=== PATIENT | female | born 2000 | race Caucasian/White ===

== ENCOUNTER 2024-12-10 12:39 | Observation (INO) | payer BC, SELFPAY ==
--- OUTSIDE RECORDS SUMMARY | 2024-12-10 12:57 | XMS_ITS | Patient Health Summary ---
Author Organization [facility] Address [address] [place] [address] Care Team Providers Care Component Design Engineer Name Role Phone Unavailable Primary Care Provider Unavailabl e Note from [facility],non-owned Affiliates and Associated Physician Practices is amultiple site organization consisting of ambulatory clinics and hospital sitesin [place], [place], [place] and [place]. This disclosure is being madepursuant to the Care Everywhere program and may not contain all information available regarding this patient. Last updated 18.[facility] Allergies No known active allergies Medications * Be aware that medications may not be up to date on this document. Alwaysverify current medications with the patient. * aspirin EC (Ecotrin) 81 MG tablet Take 1 (one) tablet by mouth once daily * Vit-Fe Fumarate-FA ( vitamin) 28-0.8 MG tablet Take 1 (one) tablet by mouth once daily Active Problems No known active problems Social History Tobacco Use Types Packs/Day Years Used Date Smoking Tobacco: Never Smokeless Tobacco: Never Alcohol Use Standard Drinks/Week Comments Never 0 (1 standard drink = 0.6 oz pur e alcohol) PHQ-2 Answer Date Recorded Patient Health Questionnaire-2 Score 1 11/11/2024 Education Answer Date Recorded What is the highest level of school you have completed or the highest degree you have received? Associate degree: occupational, technical, or vocational program 11/13/2024 Estimated Date of Delivery Comme nts Yes 03/17/2025 Based on Patient Reported Sex and Gender Information Value Date Recorded Sex Assigned at Female 11/11/2024 9:17 AM SUPERVISOR DENTURE DEPARTMENT Gender Identity Female 11/11/2024 9:17 AM SUPERVISOR DENTURE DEPARTMENT Sexual Orientation Not on file Last Filed Vital Signs Vital Sign Reading Time Taken Comments Blood Pressure 104/70 11/13/2024 8:57 AM SUPERVISOR DENTURE DEPARTMENT Pulse 79 12/21/2017 10:01 AM SUPERVISOR DENTURE DEPARTMENT Temperature 37.1 C (98.8 F) 12/21/2017 10:01 AM SUPERVISOR DENTURE DEPARTMENT Respiratory Rate 16 12/21/2017 10:01 AM SUPERVISOR DENTURE DEPARTMENT Oxygen Saturation 99% 12/21/2017 10:01 AM SUPERVISOR DENTURE DEPARTMENT Inhaled Oxygen Concentration - - Weight 88 kg (194 lb) 11/13/2024 8:57 AM SUPERVISOR DENTURE DEPARTMENT Height 163.8 cm (5' 4.5 ) 11/13/2024 8:57 AM SUPERVISOR DENTURE DEPARTMENT Body Mass Index 32.79 11/13/2024 8:57 AM SUPERVISOR DENTURE DEPARTMENT Procedures * SONOGRAM - TRANSVAGINAL(Performed 11/20/2024) Performed for Encounter for screening for cervical length ([facility]), Encounter for follow-up ultrasound of anatomy ([facility]) * SONOGRAM - COMPLETE(Performed 11/13/2024) Performed for Screening, , for anatomic survey ([facility]) * URINALYSIS - POINT OF CARE (AMB) [facility](Performed 11/13/2024) Performed for Initial obstetric visit in second trimester ([facility]) * URINALYSIS AUTO - POINT OF CARE (AMB) [facility](Performed 12/21/2017) Performed for Acute cystitis with hematuria Results * SONOGRAM - TRANSVAGINAL (11/20/2024 10:57 AM SUPERVISOR DENTURE DEPARTMENT) Linked Results Indication ======== Short cervix - on vaginal progesterone Incomplete Anatomic Survey History ====== OB History 1. Para 0 Lab Tests Test Date Result NIPT Low risk, Male (per patient) Maternal Assessment Physical Exam Height 163 cm, 5 ft 4 in. Weight 89 kg, 197 lb. Initial weight 82 kg, 180 lb. BMI 33.82 kg/m . Initial BMI 30.90 kg/m . Weight gain 8 kg, 17 lb Method ====== Transabdominal and transvaginal ultrasound. View: Sufficient ========= Vera . Number of fetuses: 1 Dating ====== Date Details Gest. age ELIZA Stated ELIZA 23 w + 2 d 03/17/2025 Assigned dating based on stated ELIZA, selected on 11/13/2024 23 w + 2 d 03/17/2025 General Evaluation Cardiac activity present. FHR 153 bpm. Presentation: breech Placenta: Placental site: anterior Amniotic fluid: Amount of AF: normal. MVP 4.9 cm Anatomy The following structures appear normal: Abdomen Stomach. Kidneys. Bladder. The following structures could not be adequately visualized: Spine Cervical spine. Thoracic spine. Lumbar spine. Sacral spine. Extremities / Skeleton Feet. sex: male. Maternal Structures Cervix reassuring Approach - Transvaginal: Cervical length 2.40 cm ranges from 2.38-2.92 cm Impression ========= Single , live, intrauterine at 23w2d Amniotic fluid volume: normal Transvaginal cervical length appears reassuring Incomplete anatomic survey No malformations seen within the limitations of ultrasound Follow-up ======== Ultrasound in 3 weeks for growth and anatomy Continue use of vaginal progesterone Coding ====== Procedures 16637: US Uterus Limited 92557: US Preg Uterus Transvaginal [employer] PACS Anatomical Region Laterality Modality Other 11/20/2024 10:5 7 AM SUPERVISOR DENTURE DEPARTMENT R Mane Lozano MD [facility] ORDERABLES * SONOGRAM - COMPLETE (11/13/2024 9:47 AM SUPERVISOR DENTURE DEPARTMENT) Linked Results Indication ======== Short cervix on outside ultrasound - 2.3 cm on 11/07 and 3.4 cm with dynamic changes on 11/12 Anatomic Survey History ====== OB History 1. Para 0 Lab Tests Test Date Result NIPT Low risk, Male (per patient) Maternal Assessment Physical Exam Height 163 cm, 5 ft 4 in. Weight 87 kg, 192 lb. Initial weight 82 kg, 180 lb. BMI 32.96 kg/m . Initial BMI 30.90 kg/m . Weight gain 5 kg, 12 lb Method ====== Transabdominal and transvaginal ultrasound examination. View: Suboptimal view: limited by position ========= Vera . Number of fetuses: 1 Dating ====== Date Details Gest. age ELIZA Stated ELIZA 22 w + 2 d 03/17/2025 U/S 11/13/2024 based upon AC, BPD, Femur, HC 23 w + 1 d 03/11/2025 Assigned dating based on stated ELIZA, selected on 11/13/2024 22 w + 2 d 03/17/2025 General Evaluation Cardiac activity present. FHR 140 bpm. Presentation: variable Placenta: Placental site: anterior Umbilical cord: Cord vessels: 3 vessel cord. Insertion site: normal insertion Amniotic fluid: Amount of AF: normal. MVP 4.2 cm Biometry BPD 56.9 mm 23w 3d 85% Hadlock HC 209.6 mm 23w 0d 69% Hadlock Cerebellum tr 24.1 mm 69% [place] Nuchal fold 4.1 mm AC 191.4 mm 23w 6d 87% Hadlock Femur 38.5 mm 22w 2d 41% Hadlock Humerus 38.3 mm 23w 4d 84% Cade HC / AC 1.10 -/- Hadlock Weight Calculation: EFW 572 g 85% Hadlock EFW (lb,oz) 1 lb 4 oz EFW by Hadlock ([id number]) Head / Face / Neck Biometry: CM 4.6 mm 20% Nicolaides Growth Overview Exam date GA BPD (mm) HC (mm) AC (mm) FL (mm) HL (mm) EFW (g) 11/13/2024 22w 2d 56.9 85% 209.6 69% 191.4 87% 38.5 41% 38.3 84% 572 85% Anatomy The following structures appear normal: Head / Neck Cranium. Lateral ventricles. Choroid plexus. Midline falx. Cavum septi pellucidi. Cerebellum. Cisterna magna. Thalami. Nuchal fold. Face Lips. Profile. Nose. Nasal bone. Orbits. Heart / Thorax 4-chamber view. RVOT view. LVOT view. 3-vessel view. 5-iowplh-bhekilz view. Situs. Aortic arch view. Bicaval view. Ductal arch view. Great vessels. Right lung. Left lung. Diaphragm. Abdomen Cord insertion. Stomach. Kidneys. Bladder. Bowel. Genitals. Extremities / Skeleton Arms. Hands. Legs. The following structures could not be adequately visualized: Spine Cervical spine. Thoracic spine. Lumbar spine. Sacral spine. Extremities / Skeleton Feet. sex: male. Maternal Structures Cervix Abnormal Appearance: shortened Approach - Transvaginal: Cervical length 2.42 cm Funneling absent Right Ovary Not visualized Left Ovary Not visualized Impression ========= Single, live, intrauterine at 22w 2d Appropriate size for reported ELIZA Amniotic fluid volume: normal No major malformations were seen within the limitations of ultrasound Incomplete anatomic survey due to position Short transvaginal cervical length at 2.4 cm; no funneling noted Follow-up ======== Follow up ultrasound in 1 week for cervical length assessment Follow up anatomy and growth in 4 weeks Coding ====== Procedures [id number]: US Preg Uterus Detailed 08143: US Preg Uterus Transvaginal [facility] RF nano PACS Anatomical Region Laterality Modality Other 11/13/2024 9:47 AM SUPERVISOR DENTURE DEPARTMENT R Mane Lozano MD [facility] ORDERABLES * URINALYSIS - POINT OF CARE (AMB) [facility] (11/13/2024 9:05 AM SUPERVISOR DENTURE DEPARTMENT) Specific [place] UA 1.[address] [facility] [address] pH UA 7 [facility] [address] WBC UA 1+ [facility] [address] Nitrite UA n [facility] [address] Protein UA n [facility] [address] Glucose UA n [facility] [address] Ketones UA POCT n [facility] [address] Urobilinogen UA n [facility] [address] Bilirubin UA POCT n [facility] [address] Blood Urine POCT n [facility] [address] Urine URINE / Unknown 11/13/2024 9 :05 AM SUPERVISOR DENTURE DEPARTMENT Sukhdev Rasmussen MD LAB - POINT OF CARE ORDERABLES [facility] [address] [place] [address], [facility] [phone] * (ABNORMAL) URINALYSIS AUTO - POINT OF CARE (AMB) [facility] (12/21/2017) Clarity UA POCT clear Color UA POCT yellow Leukocyte UA Trace (15) Negative Nitrite UA POCT neg Negative Urobilinogen UA 0.2 0.1 - 1.0 Protein UA POCT Trace Negative pH UA 6.5 5.0 - 8.0 pH units Blood UA + Negative Specific [place] UA POCT 1.005 1.002 - 1.030 Ketone UA neg Negative Bilirubin UA POCT neg Negative Glucose UA neg Negative Expiration Date 05/31/19 Lot # [id number] QC Verified Yes Yes Urine URINE / Unknown 12/21/2017 Lucia Gordon [employer] HAZMAT DRIVER-SEVERITY OF ILLNESS COORDINATOR LAB - POINT OF CA RE ORDERABLES
--- OUTSIDE RECORDS SUMMARY | 2024-12-10 12:58 | XMS_ITS | Referral Summary ---
Author Organization [facility] Address [address] [place] [address] Care Team Providers Care Machine Hose Cutter Name Role Phone Unavailable Primary Care Provider Unavailabl e Source Comments [facility],non-owned Affiliates and Associated Physician Practices is amultiple site organization consisting of ambulatory clinics and hospital sitesin [place], [place], [place] and [place]. This disclosure is being madepursuant to the Care Everywhere program and may not contain all information available regarding this patient. Last updated 18.[facility] Encounters Date Type Department Care Team Description 11/20/2024 Travel 11/20/2024 10:24 AM ASSEMBLER FINAL - 11/20/2024 11:59 PM ASSEMBLER FINAL Hospital Encounter [facility] MATERNAL/ EVALUATION UNIT [address] [place] [address] Say Hatch DO Gross, Gilad A, MD Discharge Disposition: Home or Self Care 11/13/2024 Telephone [facility] MATERNAL/ EVALUATION UNIT [address] [place] [address] Michaela Arreaga Future Appointment 11/13/2024 Travel 11/13/2024 9:00 AM ASSEMBLER FINAL visit [facility] - PROJECTION TECHNICIAN [address] [place] [id number] Sukhdev Rasmussen MD [place]: 22w2d 11/13/2024 8:15 AM ASSEMBLER FINAL - 11/13/2024 11:59 PM ASSEMBLER FINAL Hospital Encounter [facility] MATERNAL/ EVALUATION UNIT [address] [place] [address] Say Hatch DO PROJECTION TECHNICIAN Discharge Disposition: Home or Self Care 11/07/2024 Telephone [facility] MATERNAL/ EVALUATION UNIT [address] [place] [address] Michaela Rudolph, cardiac cath tech from Last 3 Months Allergies No known active allergies Medications * Be aware that medications may not be up to date on this document. Alwaysverify current medications with the patient. Medication Sig Dispensed Refills Start Date End Date Status aspirin EC (Ecotrin) 81 MG tablet Take 1 (one) tablet by mouth once daily Active Vit-Fe Fumarate-FA ( vitamin) 28-0.8 MG tablet Take 1 (one) tablet by mouth once daily Active Active Problems Estimated Date of Delivery Comme nts Yes 03/17/2025 Based on Patient Reported No known active problems Social History Tobacco [...] Sex Assigned at Female 11/11/2024 9:17 AM ASSEMBLER FINAL Gender Identity Female 11/11/2024 9:17 AM ASSEMBLER FINAL Sexual Orientation Not on file Last Filed Vital Signs Vital Sign Reading Time Taken Comments Blood Pressure 104/70 11/13/2024 8:57 AM ASSEMBLER FINAL Pulse 79 12/21/2017 10:01 AM ASSEMBLER FINAL Temperature 37.1 C (98.8 F) 12/21/2017 10:01 AM ASSEMBLER FINAL Respiratory Rate 16 12/21/2017 10:01 AM ASSEMBLER FINAL Oxygen Saturation 99% 12/21/2017 10:01 AM ASSEMBLER FINAL Inhaled Oxygen Concentration - - Weight 88 kg (194 lb) 11/13/2024 8:57 AM ASSEMBLER FINAL Height 163.8 cm (5' 4.5 ) 11/13/2024 8:57 AM ASSEMBLER FINAL Body Mass Index 32.79 11/13/2024 8:57 AM ASSEMBLER FINAL Plan of Treatment Not on file Procedures Procedure Name Priority Date/Time Associated Diagnosis Comments SONOGRAM - TRANSVAGINAL Routine 11/20/2024 10:57 AM ASSEMBLER FINAL Encounter for screening for cervical length (HCC) Encounter for follow-up ultrasound of anatomy ([facility]) SONOGRAM - COMPLETE Routine 11/13/2024 9 :47 AM ASSEMBLER FINAL Screening, , for anatomic survey (HCC) URINALYSIS - POINT OF CARE (AMB) [facility] Routine 11/13/2024 9:05 AM ASSEMBLER FINAL Initial obstetric visit in second trimester ([facility]) from Last 3 Months Results * SONOGRAM - TRANSVAGINAL (11/20/2024 10:57 AM ASSEMBLER FINAL) Linked Results Indication ======== Short cervix - [...] use of vaginal progesterone Coding ====== Procedures [id number]: US Uterus Limited 02097: US Preg Uterus Transvaginal [employer] PACS Anatomical Region Laterality Modality Other 11/20/2024 10:5 7 AM ASSEMBLER FINAL R Mane Lozano MD [facility] ORDERABLES * SONOGRAM - COMPLETE (11/13/2024 9:47 AM ASSEMBLER FINAL) Linked Results Indication ======== Short cervix on [...] 1 lb 4 oz EFW by Hadlock ([id number]) Head / Face / Neck Biometry: CM [...] view. RVOT view. LVOT view. 3-vessel view. 2-lvnfqs-rcqhtrj view. Situs. Aortic arch view. Bicaval view. [...] growth in 4 weeks Coding ====== Procedures 35772: US Preg Uterus Detailed 05812: US Preg Uterus Transvaginal [facility] ONOFFMIX (?) PACS Anatomical Region Laterality Modality Other 11/13/2024 9:47 AM ASSEMBLER FINAL R Mane Lozano MD [facility] ORDERABLES * URINALYSIS - POINT OF CARE (AMB) U (11/13/2024 9:05 AM ASSEMBLER FINAL) Specific [place] UA 1.[address] [facility] [address] pH UA 7 [facility] [address] WBC UA 1+ [facility] [address] Nitrite UA n [facility] [address] Protein UA n [facility] [address] Glucose UA n [facility] [address] Ketones UA POCT n [facility] [address] Urobilinogen UA n [facility] [address] Bilirubin UA POCT n [facility] [address] Blood Urine POCT n [facility] [address] Urine URINE / Unknown 11/13/2024 9 :05 AM ASSEMBLER FINAL Sukhdev Rasmussen MD LAB - POINT OF CARE ORDERABLES [facility] [address] [place] [address], [facility] [phone] from Last 3 Months Danna Spivey Personal/Family Self 2000
--- OUTSIDE RECORDS SUMMARY | 2024-12-10 12:58 | XMS_ITS | Clinical Summary ---
Author Organization [facility] Address [address] [place] [address] Care Team Providers Care Lead Printer Name Role Phone Unavailable Primary Care Provider Unavailabl e Source Comments [facility],non-owned Affiliates and Associated Physician Practices is amultiple site organization consisting of ambulatory clinics and hospital sitesin [place], [place], [place] and [place]. This disclosure is being madepursuant to the Care Everywhere program and may not contain all information available regarding this patient. Last updated 18.[facility] Allergies No known active allergies Medications * [...] on Patient Reported No known active problems Encounters Date Type Department Care Team Description 11/20/2024 10:24 AM MAID CLEANING COOKING - 11/20/2024 11:59 PM MAID CLEANING COOKING Hospital Encounter [facility] MATERNAL/ EVALUATION UNIT [address] [place], [place] [address] Say Hatch DO Gross, Gilad A, MD Discharge Disposition: Home or Self Care 11/20/2024 Travel 11/13/2024 9:00 AM MAID CLEANING COOKING visit [facility] - FACILITY MANAGER [address] [place] [address] Sukhdev Rasmussen MD [place]: 22w2d 11/13/2024 8:15 AM MAID CLEANING COOKING - 11/13/2024 11:59 PM MAID CLEANING COOKING Hospital Encounter [facility] MATERNAL/ EVALUATION UNIT [address] [place] [address] Say Hatch DO FACILITY MANAGER Discharge Disposition: Home or Self Care 11/13/2024 Telephone [facility] MATERNAL/ EVALUATION UNIT [address] [place] [address] Michaela Arreaga Future Appointment 11/13/2024 Travel 11/07/2024 Telephone [facility] MATERNAL/ EVALUATION UNIT [address] [place] [address] Michaela Rudolph RN Referral from Last 3 Months Family History Medical History Relation Name Comments Leukemia Mother Other Mother unsure, ?ovaria n cysts Cancer - Breast Neg Hx Cancer - Colon Neg Hx Cancer - Uterine Neg Hx Other - Defects Neg Hx Sudd. <30 Neg Hx Relation Name Status Comments Father Alive Mother Social History Tobacco Use Types Packs/Day Years [...] Sex Assigned at Female 11/11/2024 9:17 AM MAID CLEANING COOKING Gender Identity Female 11/11/2024 9:17 AM MAID CLEANING COOKING Sexual Orientation Not on file Last Filed Vital Signs Vital Sign Reading Time Taken Comments Blood Pressure 104/70 11/13/2024 8:57 AM MAID CLEANING COOKING Pulse 79 12/21/2017 10:01 AM MAID CLEANING COOKING Temperature 37.1 C (98.8 F) 12/21/2017 10:01 AM MAID CLEANING COOKING Respiratory Rate 16 12/21/2017 10:01 AM MAID CLEANING COOKING Oxygen Saturation 99% 12/21/2017 10:01 AM MAID CLEANING COOKING Inhaled Oxygen Concentration - - Weight 88 kg (194 lb) 11/13/2024 8:57 AM MAID CLEANING COOKING Height 163.8 cm (5' 4.5 ) 11/13/2024 8:57 AM MAID CLEANING COOKING Body Mass Index 32.79 11/13/2024 8:57 AM MAID CLEANING COOKING Plan of Treatment Health Maintenance Due Date Last Done Comments PAP SMEAR 2000 HIV SCREENING 2013 HPV VACCINE (1 - 3-dose series) 2013 HEPATITIS C SCREENING 12/30/2015 DTAP/TDAP/TD VACCINES (1 - Tdap) 2017 HEPATITIS B VACCINE (1 of 3 - 19+ 3-dose series) 2017 COVID-19 VACCINE (2023-2 5 season) 2024 11/16/2021, 10/26/2021 INFLUENZA VACCINE (#1) 2024 OB-ONE HOUR GLUCOSE 12/09/2024 OB-TDAP CURRENT 12/16/2024 OB-RHOGAM INJECTION 12/23/2024 ZOSTER VACCINE (1 of 2) 01/04/2048 DEPRESSION SCREENING Completed 11/13/2024 HIB VACCINE Aged Out No longer eligi ble based on patient's age to complete this topic MENINGOCOCCAL (Group B) VACCINE Aged Out No longer eligible b ased on patient's age to complete this topic MENINGOCOCCAL VACCINE Aged Out No toby sri eligible based on patient's age to complete this topic PNEUMOCOCCAL VACCINE Aged Out No long er eligible based on patient's age to complete this topic Respiratory Syncytial Virus (RSV) Vaccine Pt: or over 60 yrs (No Doses Required) Completed Procedures Procedure Name Priority Date/Time Associated Diagnosis Comments SONOGRAM - TRANSVAGINAL Routine 11/20/2024 10:57 AM MAID CLEANING COOKING Encounter for screening for cervical length (HCC) Encounter for follow-up ultrasound of anatomy (HCC) SONOGRAM - COMPLETE Routine 11/13/2024 9 :47 AM MAID CLEANING COOKING Screening, , for anatomic survey (HCC) URINALYSIS - POINT OF CARE (AMB) [facility] Routine 11/13/2024 9:05 AM MAID CLEANING COOKING Initial obstetric visit in second trimester (HCC) from Last 3 Months Results * SONOGRAM - TRANSVAGINAL (11/20/2024 10:57 AM MAID CLEANING COOKING) Linked Results Indication ======== Short cervix - [...] use of vaginal progesterone Coding ====== Procedures [id number]: US Uterus Limited 41270: US Preg Uterus Transvaginal [facility] PACS Anatomical Region Laterality Modality Other 11/20/2024 10:5 7 AM MAID CLEANING COOKING R Mane Lozano MD [facility] ORDERABLES * SONOGRAM - COMPLETE (11/13/2024 9:47 AM MAID CLEANING COOKING) Linked Results Indication ======== Short cervix on [...] 1 lb 4 oz EFW by Hadlock ([id number]) Head / Face / Neck Biometry: CM [...] view. RVOT view. LVOT view. 3-vessel view. 0-nwqdzj-nwbkifx view. Situs. Aortic arch view. Bicaval view. [...] growth in 4 weeks Coding ====== Procedures [id number]: US Preg Uterus Detailed 83306: US Preg Uterus Transvaginal . [facility] PACS Anatomical Region Laterality Modality Other 11/13/2024 9:47 AM MAID CLEANING COOKING R Mane Lozano MD [facility] ORDERABLES * URINALYSIS - POINT OF CARE (AMB) [facility] (11/13/2024 9:05 AM MAID CLEANING COOKING) Specific [place] UA 1.015 [facility] [address] pH [...] URINE / Unknown 11/13/2024 9 :05 AM MAID CLEANING COOKING Sukhdev Rasmussen MD LAB - POINT OF CARE ORDERABLES [facility] [address] [place] [address], [facility] [phone] from Last 3 Months Danna Spivey Personal/Family Self 2000
[2024-12-10 13:16] VITALS: BP 120/67; PULSE 89
[2024-12-10 13:31] VITALS: BP 125/61; PULSE 90
[2024-12-10 13:37] VITALS: BMI 34.2
--- NOTE | 2024-12-10 13:37 | OBADM ---
This patient, Danna Spivey, admitted to the OB room OB Post 115 for observation. Patient/family oriented to hospital policies and general routines including ID bracelet, bed and alarms, visiting hours, pain management, procedures, bathroom and other care routines, personal items, smoking policy, room service/diet, and visiting hours. Patient/Family are encouraged to report perceived risks to care and to ask questions if they do not understand what they are told or what they should do. Pt. presents with reports of having slipped on the ice and fell forward onto her hands and knees. She states that she did not hit her abdomen, denies vaginal bleeding and LOF. She reports having an anterior placenta and states that she does not feel baby move very much r/t that. EFM X2 appllied and will monitor.
[2024-12-10 13:46] VITALS: BP 119/68; PULSE 85
[2024-12-10 14:01] VITALS: BP 118/75; PULSE 86
--- NOTE | 2024-12-11 07:55 | PM.OBTRLD ---
OB - Triage/Final Diagnosis Visit Information Reason for evaluation: other (s/p falling) Comments/Additional reasons for admission: I have assessed the risk for this patient, Danna Spivey, and determined that she would benefit from observation care. Evaluation Vital signs: Vital Signs - 24 hr 12/10/24 13:16 12/10/24 13:31 12/10/24 13:46 Pulse Rate 89 90 85 Blood Pressure 120/67 125/61 119/68 12/10/24 14:01 Pulse Rate 86 Blood Pressure 118/75
== END 2024-12-10 15:55 | disposition home or self-care (01) ==
LOC: ANHOBPP 12-11 07:09
PROVIDERS: Admitting Provider Obstetrics & Gynecology; PCP Nurse Practitioner Family; Visit Provider Obstetrics & Gynecology Gynecology
DX: O26.892 Other specified pregnancy related conditions, second trimester (principal); W19.XXXA Unspecified fall, initial encounter; Z3A.26 26 weeks gestation of pregnancy
CPT/HCPCS: G0378; G0379

== ENCOUNTER 2025-01-08 17:37 | Observation (INO) | payer BC, SELFPAY ==
--- OUTSIDE RECORDS SUMMARY | 2025-01-08 17:45 | XMS_ITS | Clinical Summary ---
Author Organization [facility] [employer] Address [address] [address] Care Team Providers Care Business Applications Analyst Name Role Phone Unavailable Primary Care Provider Unavailabl e Source Comments [facility] [employer],non-owned Affiliates and Associated Physician Practices is amultiple site organization consisting of ambulatory clinics and hospital sitesin [place], [place], [place] and [place]. This disclosure is being madepursuant to the Care Everywhere program and may not contain all information available regarding this patient. Last updated 18.[employer] Allergies No known active allergies Medications * [...] Department Care Team Description 11/20/2024 10:24 AM CORPORATE REAL ESTATE MANAGER - 11/20/2024 11:59 PM CORPORATE REAL ESTATE MANAGER Hospital Encounter [facility] MATERNAL/ EVALUATION UNIT 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 [place] [address] Say Hatch DO CLEANING AND MAINTENANCE WORKER Discharge Disposition: Home or Self Care 11/13/2024 Telephone [facility]/ EVALUATION UNIT [address] [place] [address] Michaela Arreaga Future Appointment 11/13/2024 Travel 11/07/2024 Telephone [facility] MATERNAL/ EVALUATION UNIT [address] [place] [address] Michaela Rudolph RN Referral from Last 3 [...] Sex Assigned at Female 11/11/2024 9:17 AM CORPORATE REAL ESTATE MANAGER Gender Identity Female 11/11/2024 9:17 AM CORPORATE REAL ESTATE MANAGER Sexual Orientation Not on file Last Filed Vital Signs Vital Sign Reading Time Taken Comments Blood Pressure 104/70 11/13/2024 8:57 AM CORPORATE REAL ESTATE MANAGER Pulse 79 12/21/2017 10:01 AM CORPORATE REAL ESTATE MANAGER Temperature 37.1 C (98.8 F) 12/21/2017 10:01 AM CORPORATE REAL ESTATE MANAGER Respiratory Rate 16 12/21/2017 10:01 AM CORPORATE REAL ESTATE MANAGER Oxygen Saturation 99% 12/21/2017 10:01 AM CORPORATE REAL ESTATE MANAGER Inhaled Oxygen Concentration - - Weight 88 kg (194 lb) 11/13/2024 8:57 AM CORPORATE REAL ESTATE MANAGER Height 163.8 cm (5' 4.5 ) 11/13/2024 8:57 AM CORPORATE REAL ESTATE MANAGER Body Mass Index 32.79 11/13/2024 8:57 AM CORPORATE REAL ESTATE MANAGER Plan of Treatment Health Maintenance Due Date Last Done Comments PAP SMEAR 1998 HEPATITIS C SCREENING 12/30/2015 DTAP/TDAP/TD VACCINES (1 - Tdap) 2017 HEPATITIS B VACCINE (1 of 3 - 19+ 3-dose series) 2017 COVID-19 VACCINE (2023-2 5 season) 2024 11/16/2021, 10/26/2021 INFLUENZA VACCINE (#1) 2024 OB-ONE HOUR GLUCOSE 12/09/2024 OB-TDAP CURRENT 12/16/2024 OB-RHOGAM INJECTION 12/23/2024 ZOSTER VACCINE (1 of 2) 01/04/2048 HIV SCREENING Completed 08/22/2024 DEPRESSION SCREENING Completed 11/13/2024 HIB VACCINE Aged Out No longer eligi ble based on patient's age to complete this topic HPV VACCINE Aged Out No longer eligi ble based on patient's age to complete this topic MENINGOCOCCAL (Group B) VACCINE SHARED DECISION-MAKING Aged Out No longer eligible based on patient's age to complete this topic MENINGOCOCCAL GROUPS A/C/Y/W VACCINE Aged Out No longer eligible b ased on patient's age to complete this topic PNEUMOCOCCAL VACCINE Aged Out No long er eligible based on patient's age to complete this topic Respiratory Syncytial Virus (RSV) Vaccine Pt: or over 60 yrs (No Doses Required) Completed Procedures Procedure Name Priority Date/Time Associated Diagnosis Comments SONOGRAM - TRANSVAGINAL Routine 11/20/2024 10:57 AM CORPORATE REAL ESTATE MANAGER Encounter for screening for cervical length Encounter for follow-up ultrasound of anatomy SONOGRAM - COMPLETE Routine 11/13/2024 9 :47 AM CORPORATE REAL ESTATE MANAGER Screening, , for anatomic survey URINALYSIS - POINT OF CARE (AMB) [facility] Routine 11/13/2024 9:05 AM CORPORATE REAL ESTATE MANAGER Initial obstetric visit in second trimester from Last 3 Months Results * SONOGRAM - TRANSVAGINAL (11/20/2024 10:57 AM CORPORATE REAL ESTATE MANAGER) Linked Results Indication ======== Short cervix - [...] use of vaginal progesterone Coding ====== Procedures 36323: US Uterus Limited 52065: US Preg Uterus Transvaginal [facility] [employer] PACS Anatomical Region Laterality Modality Other 11/20/2024 10:5 7 AM CORPORATE REAL ESTATE MANAGER R Mane Lozano MD [facility] ORDERABLES * SONOGRAM - COMPLETE (11/13/2024 9:47 AM CORPORATE REAL ESTATE MANAGER) Linked Results Indication ======== Short cervix on [...] 1 lb 4 oz EFW by Hadlock ([id number]) Head / Face / Neck Biometry: CM [...] view. RVOT view. LVOT view. 3-vessel view. 1-sahpcd-dsvbsrq view. Situs. Aortic arch view. Bicaval view. [...] growth in 4 weeks Coding ====== Procedures 59707: US Preg Uterus Detailed 88537: US Preg Uterus Transvaginal [facility] PACS Anatomical Region Laterality Modality Other 11/13/2024 9:47 AM CORPORATE REAL ESTATE MANAGER R Mane Lozano MD [facility] ORDERABLES * URINALYSIS - POINT OF CARE (AMB) [facility] (11/13/2024 9:05 AM CORPORATE REAL ESTATE MANAGER) Specific [place] UA 1.[address] [facility] [address] pH UA [address] [facility] [address] WBC UA 1+ [facility] 10 31 [...] URINE / Unknown 11/13/2024 9 :05 AM CORPORATE REAL ESTATE MANAGER Sukhdev Rasmussen MD LAB - POINT OF CARE ORDERABLES [facility] [address] [place] [address], [facility] [phone] from Last 3 Months Danna Spivey Personal/Family Self 2000
--- OUTSIDE RECORDS SUMMARY | 2025-01-08 17:45 | XMS_ITS | Data Portability ---
Author Organization [facility] [employer] , [facility] Address [address] [place] [address] Assessment No assessment recorded. Plan of Treatment Reminders Order Date Submit Date Provider Last Modified By Organization Details Last Modified Time Details Appointments None recorded. Lab test, urine 2023 024 bnotzke [facility], [address] [place], [address], 4 12:10:14 test, urine 2023 024 [facility], [address] [facility], [place], [address], 4 15:42:14 mycoplasma + ureaplasma DNA, unspecified specimen 2023 024 Ullink [facility], [address] [facility], [facility] [address], [place], [address], 4 18:31:39 testosteron e, free, serum 2023 024 Ullink [facility], [address], [place], [address], 4 19:09:01 lh + FSH, serum 2023 024 [facility], [address] [place], [address], 4 11:44:56 estradiol, serum 2023 Ullink [facility], [address], [place], [address], 19:09:00 hemoglobin A1c, QN, blood 2023 MIKE [email or web address] [facility], [address] [place], [address], 10:58:20 prolactin, serum 2023 MIKE [email or web address] [facility], [address] [place], [address], 11:44:58 TSH + free T4, serum 2023 [email or web address] [facility], [address] [place], [address], 11:50:12 Referral None recorded. Procedures None recorded. Surgeries None recorded. Imaging US, transvagina l 2023 [facility] Not available 11:44:22 Medication Orders None recorded. Patient TargetsNo targets recorded. Patient Instructions Encounter Date Encounter Id Patient Instructions Last Modified By Organization Details Last Modified Time 06/26/2024 [id number] infertility education [email or web address] Not available 06/26/2024 13:14:08 08/06/2024 [id number] [facility] OB Booklet bnotzke Not available 08/06/2024 12:10:12 Reason for Referral None Reported. Results Created Date Observation Date Name Description Value Unit Range Abnormal Flag Note LastModifiedBy Organization Detail LastModifiedTime 07/01/20 24 07/01/2024 ESTRA DIOL estradiol 162 pg/mL normal Refer ence Range Folli cular Phase : 19-14 4 Mid-C ycle: 64-35 7 Lutea l Phase : 56-21 4 Postm enopa usal: < or = 31 Refer ence range estab lishe d on post- puber yung patie nt popul ation . No pre-p ubert al refer ence range estab lishe d using this assay . For any patie nts for whom low Estra diol level s are antic ipate d (e.g. males , pre-p ubert al child beto and hypog onada l/pos t-men opaus al femal es), the [facility] t[facility] Estra diol, Ultra sensi tive, LCMSM S assay is recom ani d (orde r code 58844 ). Pleshu e note: patie nts being treat ed with the drug fulve stran t (Fasl odex( R)) have demon strat ed signi fican t inter feren ce in immun oassa y metho ds for estra diol measu remen t. The cross react ivity could lead to false ly eleva mindi estra diol test resul ts leadi ng to an inapp ropri ate clini harsh asses sment of estro gen statu s. [facility] order code [id number] -Estr adiol , Ultra sensi tive LC/MS /MS demon strat es negli gible cross react ivity with fulve stran t. Not Available [facility] [address] [place], [address], 07/01/2024 19:09:00 07/01/2007/01/2024 TESTO STERO NE, FREE testosterone , free 3.6 pg/mL 0.2-5. 0 MDF med fusio n [address] [facility] [address] [facility] [address] [phone] Brii Mae MD, PhD NO COLLE CTION DATE RECEI FRANCOISE. WE HAVE USED THE DATE THE SPECI MEN WAS RECEI FRANCOISE BY THIS LABOR ATORY THE COLLE CTION DATE. IF THIS IS INCOR RECT, PLEAS E CONTA CT CLIEN T SERVI JANY. PHONE NUMBE R: [phone] Not Available Alekto [facility] [address] [place], [address], 07/01/2024 19:09:00 06/26/20 24 07/04/2024 MYCOP LASMA /UREA PLASM A PANEL sureswab(R), mycoplasma hominis, real-time PCR NOT DETECT ED normal REFEE RENCE RANGE : NOT DETEC MINDI Metho dolog y: Real- Time PCR This test was devel oped and its mahsa tical perfo rmanc e amor cteri stics have been deter mined by [employer] [facility]. It has not been clear ed or appro francoise by FDA. This assay has been valid ated pursu ant to the CLIA regul ation s and is used for clini harsh purpo ses. Not Available [facility] [address] [place], [address], 07/04/2024 18:31:39 06/26/20 24 07/04/2024 MYCOP LASMA /UREA PLASM A PANEL mycoplasma genitalium, rrna,tma NOT DETECT ED normal REFER ENCE RANGE : NOT DETEC MINDI Not Available [address] [place], [address], 07/04/2024 18:31:39 06/26/20 24 07/04/2024 MYCOP LASMA /UREA PLASM A PANEL U. parvum DNA NOT DETECT ED normal Not Available [facility] [address], [address], 07/04/2024 18:31:39 06/26/20 24 07/04/2024 MYCOP LASMA /UREA PLASM A PANEL U. urealyticum DNA NOT DETECT ED normal REFER ENCE RANGE : NOT DETEC MINDI Metho dolog y: Real- Time PCR This test was devel oped and its mahsa tical perfo rmanc e amor cteri stics have been deter mined by [employer] [facility]. It has not been clear ed or appro francoise by FDA. This assay has been valid ated pursu ant to the CLIA regul ation s and is used for clini harsh purpo ses. Not Available [facility] [place] [address] [place], [address], 07/04/2024 18:31:39 06/27/20 24 06/28/2024 HEMOG LOBIN A1C hemoglobin A1C 4.8 % <5.7 normal The refer ence range for HbA1c is indic ated in the table below . Sugge sted Diagn osis =6.5% Consi stent with diabe adonis 5.7 6.4% Consi stent with incre ased risk for diabe adonis (pred iabet ic) <5.7% Consi stent with the absen ce of diabe adonis Not Available [employer] [address] [place], [address], 06/28/2024 10:58:20 06/27/20 24 06/28/2024 FSH AND LH FSH 2.4 mIU/m L Refer ence Range s are for femal es aged 18 years - Adult Katalina l Menst ruati ng Femal e: Folli cular phase : 2.5-1 0.2 mIU/m L Mid-C ycle Peak: 3.4-3 3.4 mIU/m L Lutea l phase : 1.5-9 .1 mIU/m L Pregn ant: <0.3 mIU/m L Post- menop ausal : 23.0- 116.6 mIU/m L [place], [address], 06/28/2024 11:44:56 06/27/20 24 06/28/2024 FSH AND LH LH 3.75 U/L Refer ence Range s are for femal es aged 18 years - Adult Katalina l Menst ruati ng Femal e: Folli cular phase : 1.9-1 2.5 mIU/m L Mid-C ycle Peak: 8.7-7 6.3 mIU/m L Lutea l phase : 0.5-1 6.9 mIU/m L Pregn ant: <0.1- 1.5 mIU/m L Post- menop ausal : 15.9- 54.0 mIU/m L Contr acept kofi: 0.7-5 .6 mIU/m L Not Available [employer] [address] [place], [address], 06/28/2024 11:44:56 06/27/2006/28/2024 PROLA CTIN prolactin 10.0 NG/mL Refer ence Range s Femal e aged 18-Ad ult Nonpr egnan t: 2.8-2 9.2 ng/mL Pregn ant: 9.7-2 08.5 ng/mL Post- menop ausal : 1.8-2 0.3 ng/mL Pregn richard, lacta tion, and the admin istra tion of oral contr acept kofi can incre ase prola ctin bear ntrat ions. Not Available [address], [address], 06/28/2024 11:44:58 06/27/20 24 06/28/2024 TSH W/ T4, FREE TSH 2.21 mIU/L 0.55 - 4.78 normal Refer ence Range Femal e aged 18-Ad ult: 0.55- 4.78 Pregn richard Refer ence Range s First Trime ster 0.26- 2.66 Secon d Trime ster 0.55- 2.73 Third Trime ster 0.43- 2.91 Not Available [facility], [address], 06/28/2024 11:50:12 06/27/20 24 06/28/2024 TSH W/ T4, FREE T4, free 1.14 NG/dL 0.89 - 1.76 normal Not Available [address], [address], 06/28/2024 11:50:12 08/06/20 24 08/06/2024 pregn richard test, urine HCG positi ve Not Available [facility] [address] [place], [address], 08/06/2024 09:17:01 08/07/20 24 08/06/2024 US, trans vagin al No observ ation record ed. bnotzke [address], [place], [address], 08/07/2024 12:27:15 Result Notes None recorded. Procedures Surgical History Date Name Laterality Status Provider Name and Address Organization Details Recorded Time 05/27/2023 Date of Last Pap Smear completed [facility] [employer] 06/26/2024 12:13:38 Imaging Results Imaging Date Name Status LastModified by Organization Details LastModified Time 08/06/2024 US, transvaginal completed bnotzke Anush[address], [place], [address], 08/07/2024 12:27:15 Procedure Notes None recorded. Medical Equipment None Reported. Allergies No known drug allergies Medications Name Sig Start Date Stop Date Status Note LastModified by Organization Details LastModified Time medroxyproge sterone 10 mg tablet TAKE 1 TABLET BY MOUTH EVERY DAY FOR 10 DAYS 06/26 completed Not Available Not Available Not Available azithromycin 250 mg tablet 06/26 completed Not Available Not Available Not Available phentermine 37.5 mg tablet TAKE 1 TABLET BY MOUTH DAILY 06/26 completed Not Available Not Available Not Available spironolacto ne 25 mg tablet TAKE 1 TABLET BY MOUTH EVERY DAY 06/26 completed Not Available Not Available Not Available metformin ER 500 mg tablet,exten ded release 24 hr TAKE 2 TABLETS EVERY DAY BY ORAL ROUTE AT DINNER FOR 30 DAYS. active Not Available Not Available No t Available sertraline 50 mg tablet TAKE 1 TABLET BY MOUTH EVERY DAY WITH A MEAL 06/26 completed Not Available Not Available Not Available escitalopram 10 mg tablet TAKE 1 TABLET BY MOUTH DAILY 06/26 completed Not Available Not Available Not Available active Not Available Not Avai lable Not Available Vitals Date Recorded Body height Body mass index (BMI) Body weight Body temperature Systolic blood pressure Diastolic blood pressure Provider Name and Address Organization Details Last Updated DateTime 4 172.72 cm 27.5 kg/m2 33661.2 2 g 97 [degF] 110 mm[Hg] 60 mm[Hg] [facility] [employer] 12:22:55 Date Recorded Body height Body mass index (BMI) Body weight Body temperature Systolic blood pressure Diastolic blood pressure Provider Name and Address Organization Details Last Updated DateTime 4 172.72 cm 27.9 kg/m2 44241.2 8 g 97.6 [degF] 118 mm[Hg] 74 mm[Hg] Janki [facility] [employer] 11:33:11 Social History Question Answer Notes LastModified by Organizat ion Details LastModified Time Tobacco Smoking Status Never Smoker Alena Kyle null, [employer] 06/26/2024 12:14:15 What Is Your Level Of Alcohol Consumption? Occasional Information not available 06/26/2024 How Many Times Per Week Do You Consume Alcohol? Less Than 1 Time Per Week Information not available 06/26/2024 If You Are , What Was Your Level Of Alcohol Consumption Prior To ? None Information not available 06/26/2024 How Many Years Have You Consumed Alcohol? 10 Information not available 06/26/2024 Are You Blind Or Do You Have Difficulty Seeing? No Information not available 06/26/2024 Are You Currently Employed? Yes Information not available 06/26/2024 Are You Deaf Or Do You Have Serious Difficulty Hearing? No Information not available 06/26/2024 What Type Of Diet Are You Following? REGULAR Information not available 06/26/2024 How Many Children Do You Have? 0 Information not available 06/26/2024 What Is Your Relationship Status? Information not available 06/26/2024 Are You Sexually Active? Yes Information not available 06/26/2024 Do You Use Any Illicit Or Recreational Drugs? No Information not available 06/26/2024 Sex: Unknown Functional Status Question Answer Note LastModified by Organizat ion Details LastModified Time What is your exercise level? Occasional Information not available 06/26/2024 Mental Status None recorded. Family History Relationship Description Onset Age of this Age Resolved Age Notes LastModified by Organization Details LastModified Time Mother Myocardial infarction Not available 06/26 12:13:04 Mother Depressive disorder Not available 2023 12:13:04 Mother Malignant neoplastic disease Not available 2023 12:13:04 Mother Malignant tumor of cervix Not available 2023 12:13:04 Unspecified Relation Malignant tumor of breast Not available 2023 12:13:04 Maternal Grandmother Malignant neoplastic disease Not available 2023 12:13:04 Sister Depressive disorder Not available 2023 12:13:04 Maternal Grandfather Malignant tumor of lung Not available 2023 12:13:04 Medical History Condition Response Anxiety Disorder Y Polycystic Ovarian Syndrome Y Gynecological History Statement/Question Response Flow Moderate Date of LMP 06/07/2024 Frequency of Cycle (Q days) Not normal Date of Last Pap Smear 05/27/2023 Duration of Flow (days) 5 Current Control Method Age at Menarche 14 Obstetrics History GPAL:G 0 P 0 0 0 0 Past Encounters Encounter ID Performer Location Encounter Start Date Encounter Closed Date Diagnosis/Indication Diagnosis SNOMED-CT Code Diagnosis ICD10 Code Diagnosis Note [id number] Elvia cordova CNM [facility] [address] [place] [address] 06/26/2024 11:57:51 07/04/2024 16:17:12 Infertility study 71872355 Z31.41 Desires reviewed tracking cycle and comparing with Ovulation kits Reproducti ve care management 123931644 Z31.81 Polycystic ovary syndrome 562089881 E28.2 Recurrent bacterial infection 051974387 A49.9 [id number] KAREN BURKS [facility] [address] [place] [address] 08/06/2024 11:23:13 08/06/2024 13:28:59 test positive 451385894 Z32.01 Pt presents today for a confirmati on of visit. has not been previously confirmed at another healthcare facility. Pt voiced that she is happy about this . TVUS today showed:IUP with Cardiac Activity. ELIZA consistent with LMP. ELIZA: 03/17/25Ges tational Age: 8w 1dFHT: 89 First trimester teaching provided.- --Foods and activities to avoid---We ight gain recommenda tions based on BMI---Safe meds---Reji entation to practice-- -Delivery locations- --SAMUEL visit progressio n---Prenat al vitamins daily---To xoplasmosi s precaution s reviewed-- -[facility] Guide; What to expect on your maternity journey -- -S/S of SAB reviewed and when to seek care RTC for 1st OB, Labs, and Physical. --BMI: 27.9 Health Concerns Section Related Observation LastModified by Organization Detai ls LastModified Time None Recorded Concern Status LastModified by Organization Details LastModified Time None Recorded Advance Directives Directive None Recorded Payers Encounter Date Sequence Insurance Name Policy Number Policy Galeano Covered Member ID Galeano Member ID Guarantor Name 06/26/2024 1 [place] [id number] Mitul Spivey [id number] Danna Elizabeth Allyssa 08/06/2024 1 [place] [id number] Mitul J Allyssa [id number] Danna Elizabeth Allyssa Notes Date Note Type Note Provider Name and Address Organization Details Recorded Time 4 text/html InfertilityReported bypatient.Duration:tryin g to conceive for >1 year Context:menstrual cycles regular/monthly; menses every 28 days; documented ovulation: ; regular intercourse Danna is here for infertilitypatient state she has been trying for years to conceivepatient state she has been dx PCOS Elvia Romero, ABRAHAM [address] [facility], [place], [address], [employer] 07/03/2024 10:43:04 4 text/html Danna is here for positive test. She states she still is taking the metformin and has been taking . She does have nausea in the morning and night sometimes. She has no questions for me. ELENA BURKS- [address] [facility], [place], [address], [facility] [employer] 08/06/2024 12:10:34 OBGyn Episode No OBEpisode recorded.
--- OUTSIDE RECORDS SUMMARY | 2025-01-08 17:45 | XMS_ITS | Data Portability ---
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 Discussed plan. Not available 11/28/2024 11:34:18 12/12/2024 12/12/2024 Patient is ___weeks . Discussed plan. Not available 12/12/2024 15:06:31 12/26/2024 12/26/2024 Patient is ___weeks . Discussed plan. Not available 12/26/2024 12:21:39 Plan of Treatment Reminders Order Date Submit Date Provider Last Modified By Organization Details Last Modified Time Details Appointments OB ROUTINE 2024 11:45A Nancy LOZANO MD Not available Not available Not available Lab None recorded. Referral None recorded. Procedures None recorded. Surgeries None recorded. Imaging US, obstetric , follow-up 2024 025 [email or web address] [place], [address], [place], [address], 12/12/2024 15:28:48 US, obstetric , transvagi nal 2024 025 [email or web address] [place], [address], [place], [address], 12/12/2024 15:28:48 US, obstetric , transvagi nal 2024 025 [email or web address] [place], [address], [address], [place], [address], 11/12/2024 20:36:37 Medication Orders None recorded. Patient TargetsNo targets recorded. Patient InstructionsNo instructions recorded. Reason for Referral None Reported. Results Created Date Observation Date Name Description Value Unit Range Abnormal Flag Note LastModifiedBy Organization Detail LastModifiedTime 12/27/1912/26/2024 HEMAT OCRIT (HCT) HCT 37.0 % (based on docume nted legal sex) 34.0-4 5.0 Not Available [facility] (Lab) [address], [place], [address], 12/27/2024 12:42:42 12/27/19 25 12/26/2024 HEMOG LOBIN (HGB) HGB 12.1 g/dL (based on docume nted legal sex) 11.6-1 5.4 Not Available [facility] (Lab) [address], [place], [address], 12/27/2024 12:42:42 12/27/19 25 12/26/2024 GTT - GESTA MARY L SCREE N, ACOG OB glucose, 1 hour screen 107 mg/dL 70-135 Not Available [facility] (Lab) [address] [place], [address], 12/27/2024 12:42:42 12/27/19 25 12/26/2024 HIV 1/2 ANTIG EN/AN TIBOD Y, REFLE X CONFI RMATI ON HIV antigen/anti body Nonrea ctive nonrea ctive HIV-1 antig en and HIV-1 /HIV- 2 antib odies were not detec bushra. No labor atory evide nce of HIV infec tion. Not Available [facility] (Lab) [address], [place], [address], 12/27/2024 12:42:43 12/27/19 25 12/26/2024 RPR SCREE N, REFLE X TITER /CONF IRMAT ION RPR qualitative Nonrea ctive nonrea ctive Not Available [facility] (Lab) [address], [place], [address], 12/27/2024 12:42:43 10/31/19 25 10/31/2024 US, obste tric, 2nd or 3rd trime ster No observ ation record ed. [address], [place], [address], 10/31/2024 12:23:53 10/31/19 25 10/31/2024 US, obste tric, trans vagin al No observ ation record ed. [address], [place], [address], 10/31/2024 12:24:08 10/31/19 25 10/31/2024 US, obste tric, follo w-up No observ ation record ed. [email or web address] [address], [place], [address], 11/07/2024 10:08:47 11/07/19 25 11/07/2024 US, obste tric, trans vagin al No observ ation record ed. [facility] [address], [place], [address], 11/07/2024 18:31:11 11/07/19 25 11/07/2024 US, obste tric, limit ed No observ ation record ed. [facility] [address], [place], [address], 11/07/2024 18:31:21 11/07/19 25 11/07/2024 US, obste tric, trans vagin al No observ ation record ed. [email or web address] [address], [place], [address], 11/07/2024 21:56:16 11/12/19 25 11/12/2024 US, obste tric, trans vagin al No observ ation record ed. marcos [place] [address], [place], [address], 11/12/2024 17:42:46 11/12/19 25 11/12/2024 US, obste tric, follo w-up No observ ation record ed. [email or web address] [address], [place], [address], 11/13/2024 09:07:22 11/13/19 25 11/13/2024 US, obste tric, follo w-up No observ ation record ed. [facility] [address], [place], [address], 11/25/2024 23:07:53 11/20/19 25 11/20/2024 US, obste tric, follo w-up No observ ation record ed. [email or web address] [facility] [address], [place], [address], 11/26/2024 18:48:01 11/22/19 25 11/20/2024 US, obste tric, follo w-up No observ ation record ed. [email or web address] [facility] [address] [facility] [facility] [address], [place], [address], 12/04/2024 17:16:19 12/12/19 25 12/12/2024 US, obste tric, follo w-up No observ ation record ed. [email or web address] [place] [address], [place], [address], 12/12/2024 18:15:40 12/12/19 25 12/12/2024 US, obste tric, trans vagin al No observ ation record ed. [email or web address] [place] [address], [place], [address], 12/12/2024 18:13:48 12/12/19 25 12/12/2024 US, obste tric, follo w-up No observ ation record ed. [email or web address] [address], [place], [address], 12/12/2024 15:24:28 Result Notes None recorded. Problems Name Problem SNOMED Code Status Onset Date Resolution Date Notes Provider Name and Address Organization Details Recorded Time SNOMED CT Concept Completed 201803/29/2021 Encntr for urogynecology physician exam (general) (routine) w/o abn findings; Recorded Elsewhere : No Locati on: [facility] So urce: EHR Chron ic: N Practic e ID: 0001 Bill able Time: 10:15:00 AM V[facility]ana [facility] 10:34:[address] Concept Completed 201703/29/2021 Encntr for general adult medical exam w/o abnormal findings; Recorded Elsewhere : No Locati on: [facility] So urce: EHR Chron ic: N Practic e ID: 0001 Bill able Time: 01:00:[address] [facility] 10:34:02 Educatio n Completed 201803/29/2021 Encounter for other general counselin g and advice on contracep tion;Shaun rded Elsewhere : No Locati on: [facility] So urce: EHR Chron ic: N Practic e ID: 0001 Bill able Time: 10:15:[address] [facility] 10:33:52 Finding of pattern of menstrua l cycle [id number] Completed 201703/29/2021 Irregular intervals between menstrual bleeding; Recorded Elsewhere : No Locati on: [facility] So urce: EHR Chron ic: N Practic e ID: 0001 Bill able Time: 01:00:00 PM Vandana roe [facility] [address] 10:33:[address] Concept Completed 201503/29/2021 Encntr for routine child health exam w/o abnormal findings; Recorded Elsewhere : No Locati on: [facility] So urce: EHR Chron ic: N Practic e ID: 0001 Bill able Time: 10:15:00 AM Vandana roe [facility] 1 10:34:03 Irregula r intermen strual bleeding 38045108 Completed 201303/29/2021 Irregular bleeding between periods;R ecorded Elsewhere : No Locati on: [facility] So urce: EHR Chron ic: N Practic e ID: 0001 Bill able Time: 04:00:00 PM Vandana Morris [facility] 1 10:33:57 Irritabi lity and anger [id number] Completed 201703/29/2021 Irritabil ity;Recor ded Elsewhere : No Locati on: [facility] So urce: EHR Chron ic: N Practic e ID: 0001 Bill able Time: 01:00:00 PM Vandana roe [facility] 10:33:58 Pregnanc y test negative [id number] Completed 201503/29/2021 Encounter for test, result negative; Recorded Elsewhere : No Locati on: [facility] So urce: EHR Chron ic: N Practic e ID: 0001 Bill able Time: 10:15:00 AM Vandana roe [facility] 1 10:34:00 Family planning surveill ance Completed 201403/29/2021 Contracep tive surveilla nce;Recor ded Elsewhere : No Locati on: [facility] So urce: EHR Chron ic: N Practic e ID: 0001 Bill able Time: 11:00:00 AM Vandana roe, [facility] 1 10:33:53 Amenorrh ea [id number] Completed 201303/29/2021 Amenorrhe a;Recorde d Elsewhere : No Locati on: [facility] So urce: EHR Chron ic: N Practic e ID: 0001 Bill able Time: 08:30:00 AM Vandana roe, [facility] 1 10:33:48 Acute vaginiti s [id number] Completed 201903/29/2021 Vaginitis ;Recorded Elsewhere : No Locati on: [facility] So urce: EHR Chron ic: N Practic e ID: 0001 Bill able Time: 08:30:00 AM Vandana roe, [facility] 1 10:33:47 Pregnanc y 83626566 Active 2023 Paola Oneal null, [facility] 4 12:48:30 COVID-19 505436053 Active 2023 bASA daily, serial growth Yamilex Otto null, [facility] 4 10:08:36 COVID-19 483648653 Active 2023 bASA daily, serial growth Yamilex Otto null, [facility] 4 10:08:36 Short cervical length in pregnanc y 893926598 Active vaginal progester one , 2.3cM 21WK [facility] referral faxed 11/07 STL scheduled [facility] STL 11/13/24 Level II US and consult 0815 CL 2.38-2.92 average 2.4 Yamilex roe, [facility] 5 16:46:37 Short cervical length in pregnanc y 515071939 Active vaginal progester one , 2.3cM 21WK [facility] referral faxed 11/07 STL scheduled [facility] STL 11/13/24 Level II US and consult 0815 CL 2.38-2.92 average 2.4 Yamilex roe [facility] 16:46:37 Problem Notes None recorded. Procedures Surgical History Date Name Laterality Status Provider Name and Address Organization Details Recorded Time 04/22/20 Date of Last Pap Smear completed Gricelda Godwin [facility] 07/11/2023 19:34:21 dental consultation and report completed Lita Murillo [facility] 05/27/2020 12:14:29 Imaging Results Imaging Date Name Status LastModified by Organization Details LastModified Time 10/31/2024 US, obstetric, 2nd or 3rd trimester completed [email or web address] [place], [place], [address], 10/31/2024 12:23:53 10/31/2024 US, obstetric, transvaginal completed [email or web address] [place] [address], [place], [address], 10/31/2024 12:24:08 10/31/2024 US, obstetric, follow-up completed [email or web address] [address], [place], [address], 11/07/2024 10:08:47 11/07/2024 US, obstetric, transvaginal completed marcos [place] [address], [place], [address], 11/07/2024 18:31:11 11/07/2024 US, obstetric, limited completed marcos [place] [address], [place], [address], 11/07/2024 18:31:21 11/07/2024 US, obstetric, transvaginal completed [email or web address] [address], [place], [address], 11/07/2024 21:56:16 11/12/2024 US, obstetric, transvaginal completed [email or web address] [place] [address], [place], [address], 11/12/2024 17:42:46 11/12/2024 US, obstetric, follow-up completed [email or web address] [address], [place], [address], 11/13/2024 09:07:22 11/13/2024 US, obstetric, follow-up completed [email or web address] [address], [address], 11/25/2024 23:07:53 11/20/2024 US, obstetric, follow-up completed [address], [address], 11/26/2024 18:48:01 11/20/2024 US, obstetric, follow-up completed [email or web address] [address], [place], [address], 12/04/2024 17:16:19 12/12/2024 US, obstetric, follow-up completed [email or web address] [place] [address], [place], [address], 12/12/2024 18:15:40 12/12/2024 US, obstetric, transvaginal completed [email or web address] [place] [address], [place], [address], 12/12/2024 18:13:48 12/12/2024 US, obstetric, follow-up completed [email or web address] [address], [place], [address], 12/12/2024 15:24:28 Procedure Notes None recorded. Medical Equipment None Reported. Allergies No known drug allergies Medications Name Sig Start Date Stop Date Status Note LastModified by Organization Details LastModified Time medroxypr ogesteron e 10 mg tablet Take 1 tablet every day by oral route for 10 days. 08/22 completed Not Available Not Available Not Available azithromy dara 250 mg tablet 01/23 completed Not Available Not Available Not Available fluconazo le 200 mg tablet take 1 tablet by oral route every other day x 3 doses. 03/29 completed Prescrib ed Elsewher e: No Locat ion: [facility] odify By: jason steve Enco unter DateTime : 11/14/19 08:30:00 AM Not Available Not Available Not Available Diflucan 150 mg tablet take 1 tablet by oral route once 11/14 completed Prescrib ed Elsewher e: No Locat ion: [facility] odify By: jason steve Enco unter DateTime : 11/07/19 01:00:27 PM Not Available Not Available Not Available Garry Low Dose Aspirin 81 mg tablet,de layed release Take 1 tablet every day by oral route. active Not Available Not Available No t Available phentermi ne 37.5 mg tablet TAKE 1 TABLET BY MOUTH DAILY 07/12 completed Not Available Not Available Not Available spironola ctone 25 mg tablet TAKE 1 TABLET BY MOUTH EVERY DAY 01/09 completed Not Available Not Available Not Available Nortrel 1/35 (28) 1 mg-35 mcg tablet take 1 tablet by oral route every day 03/26 completed Prescrib ed Elsewher e: No Locat ion: [facility] odify By: ubaldo nicolas DateTime : 12/29/19 18 09:52:26 AM Not Available Not Available Not Available Nortrel 1/35 (21) 1 mg-35 mcg tablet take 1 tablet by oral route every day for 28 days 03/30 completed Prescrib ed Elsewher e: No Locat ion: [facility] odify By: arnaldo patel DateTime : 03/03/20 16 11:35:18 AM Not Available Not Available Not Available minocycli ne 50 mg capsule take 2 capsule by oral route every 12 hours 11/14 completed Prescrib ed Elsewher e: No [facility] odify By: tatiana sky DateTime : 11/07/19 01:00:27 PM Not Available Not Available Not Available progester one micronize d 200 mg capsule Take 2 capsules every day by oral route at bedtime for 10 days. 03/29 completed Not Available Not Available Not Available metformin ER 500 mg tablet,ex tended release 24 hr TAKE 2 TABLETS EVERY DAY BY ORAL ROUTE AT DINNER FOR 30 DAYS. 09/05 completed Not Available Not Available Not Available sertralin e 50 mg tablet TAKE 1 TABLET BY MOUTH EVERY DAY WITH A MEAL FOR 30 DAYS 10/11 completed Not Available Not Available Not Available amoxicill in 875 mg-potass ium clavulana te 125 mg tablet TAKE 1 TABLET BY MOUTH EVERY 12 HOURS 04/22 completed Not Available Not Available Not Available Bactrim DS 800 mg-160 mg tablet Take 1 tablet every 12 hours by oral route. 05/27 completed Not Available Not Available Not Available NuvaRing 0.12 mg-0.015 mg/24 hr vaginal insert 1 vaginal ring by vaginal route every month leave in place for 3 weeks, remove for 1 week 11/14 completed Prescrib ed Elsewher e: No [facility] By: tatiana sky DateTime : 07/03/20 10:15:00 AM Not Available Not Available Not Available escitalop colette 10 mg tablet TAKE 1 TABLET BY MOUTH DAILY 07/12 completed Not Available Not Available Not Available nitrofura ntoin monohydra te/macroc rystals 100 mg capsule TAKE 1 CAPSULE BY MOUTH EVERY 12 HOURS WITH FOOD FOR 5 DAYS 07/12 completed Not Available Not Available Not Available metformin ER 1,000 mg tablet,ex tended release 24 hr Take 1 tablet every day by oral route at dinner for 30 days. 03/05 completed Not Available Not Available Not Available active Not Available Not Avai lable Not Available Unisom SleepGels active Not Available Not Available No t Available progester one micronize d 100 mg vaginal insert insert 1 vaginal insert daily by vaginal route at bedtime 2024 active Not Available Not Available Not Avai lable metformin ER 1,000 mg 24 hr tablet,ex tended release (gastric reten.) TAKE 1 TABLET BY MOUTH EVERY DAY 03/07 completed Not Available Not Available Not Available Minastrin 24 Fe 1 mg-20 mcg (24)/75 mg (4) chewable tablet chew 1 tablet by oral route every day 04/08 completed Prescrib ed Louher e: No Locat ion: [facility] odify By: ebony Gutierrez er DateTime : 05/15/20 08:30:00 AM Not Available Not Available Not Available Vitals Date Recorded Body height Body mass index (BMI) Body weight Systolic blood pressure Diastolic blood pressure Provider Name and Address Organization Details Last Updated DateTime 11/28/2024 163.83 cm 33.6 kg/m2 35490.88 163 g 116 mm[Hg] 78 mm[Hg] [facility] 5 11:34:59 Date Recorded Body height Body mass index (BMI) Body weight Systolic blood pressure Diastolic blood pressure Provider Name and Address Organization Details Last Updated DateTime 12/12/2024 163.83 cm 34 kg/m2 14188.06 637 g 134 mm[Hg] 84 mm[Hg] [facility] 5 15:07:01 Date Recorded Body weight Systolic blood pressure Diastolic blood pressure Provider Name and Address Organization Details Last Updated DateTime 12/26/2024 16735.4358 5 g 113 mm[Hg] 77 mm[Hg] [facility] 12/26/2024 12:22:12 Social History Question Answer Notes LastModified by Organizat ion Details LastModified Time Tobacco Smoking Status [facility]2020 12:14:16 What Is Your Level Of Alcohol Consumption? Occasional Information not available 03/29/2021 Are You Blind Or Do You Have Difficulty Seeing? No Information n ot available 03/29/2021 What Is Your Level Of Caffeine Consumption? Moderate Information not available 03/29/2021 In The 14 Days Before Symptom Onset, Have You Had Close Contact With A Laboratory-confirm ed COVID-19 While That Case Was Ill? No Information n ot available 08/08/2023 In The 14 Days Before Symptom Onset, Have You Had Close Contact With A Person Who Is Under Investigation For COVID-19 While That Person Was Ill? No Information not available 08/08/2023 Have You Been To An Area Known To Be High Risk For COVID-19? No Information not available 08/08/2023 Are You Deaf Or Do You Have Serious Difficulty Hearing? No Information not available 03/29/2021 What Type Of Diet Are You Following? REGULAR Information n ot available 03/29/2021 Do You Use Your Seat Belt Or Car Seat Routinely? Yes Information not available 03/29/2021 Are You Sexually Active? Yes Information not available 03/29/2021 Do You Have Smoke And Carbon Monoxide Detectors In Your Home? Yes Information not available 03/29/2021 Do You Feel Stressed (tense, Restless, Nervous, Or Anxious, Or Unable To Sleep At Night)? [id number] Information not available 03/29/2021 Do You Use Any Illicit Or Recreational Drugs? No Information not available 03/29/2021 Do You Use Sunscreen Routinely? Yes Information not available 03/29/2021 Sex: Unknown Functional Status Question Answer Note LastModified by Organizat ion Details LastModified Time Do you have difficulty walking or climbing stairs? No Information not available 04/22/2022 Are you able to walk? YESWOREST Information not available 03/29/2021 Are you able to care for yourself? Yes Information not available 04/22/2022 Do you have difficulty dressing or bathing? No Information not available 04/22/2022 What is your exercise level? Moderate Information not available 03/29/2021 Mental Status None recorded. Family History Relationship Description Onset Age of this Age Resolved Age Notes LastModified by Organization Details LastModified Time Mother Hypertensive disorder [email or web address] Not available 2019 12:13:56 Mother Recurrent ovarian cancer 53 53 Not available 2021 12:34:09 Mother Uterine prolapse [email or web address] Not available 2023 11:52:18 Mother Acute lymphoid leukemia Not available 2023 13:08:17 Mother Malignant tumor of ovary Not available 2023 13:08:29 Paternal Grandfather Malignant tumor of lung [email or web address] Not available 2022 12:13:17 Medical History Condition Response Allergies (Food, seasonal, environmental ) N Other N Breast Cancer N Drug/Latex Allergies/Reactions N Blood Transfusion N Dermatologic Disorders N Lung Disease N Defects or Inherited Disease N Breast Problem N Gestational Diabetes N Hematologic disorders N Anesthesia Complications N History of STI N Deep Vein Thrombosis N Polycystic ovary syndrome N Anxiety Disorder Y Autoimmune disease N Arthritis N Infertility N Polyps N Acid Reflux (GERD) N History of abnormal pap N Cancer N Stroke N Varicosities N Neurologic/Epilepsy N Endometriosis N High Cholesterol N Headaches N Fibromyalgia N Kidney Disease N Heart Problems N Kidney or Bladder Problems N Thyroid Problems N GI Problems N Eating Disorder N Anemia N Art (IVF or FET) N Psychiatric Illness N Ovarian Cancer N Diabetes N Pulmonary (TB, Asthma) N Hepatitis/Liver Disease N Eczema N Urinary Tract Infection N Abuse/Domestic Violence N Asthma N Trauma/Violence N Depression/ depression N Heart Disease N Pre-Eclampsia N Hypertension N Osteoporosis N Thrombophilias N Gynecological History Statement/Question Response Flow Moderate Date of LMP 06/10/2024 Was last menstrual period normal N STIs/STDs Y HPV Vaccine N Duration of Flow (days) 4 16 Current Control Method Are cycles usually normal Y Frequency of Cycle (Q days) Sexually Active? Y Menses Monthly N Age of first menstrual cycle 14 Date of Last Pap Smear 04/22/2022 Sexual Problems? N Desired Control Method N/A LMP Definite Obstetrics History GPAL:G 1 P 0 0 0 0 Type Value Living 0 Total 1 Past Encounters Encounter ID Performer Location Encounter Start Date Encounter Closed Date Diagnosis/Indication Diagnosis SNOMED-CT Code Diagnosis ICD10 Code Diagnosis Note [id number] Delfina Ball , [facility] [address] [address] 05/27/2020 12:02:02 05/27/2020 13:48:51 test negative 351006710 Z32.02 Irregular periods 737233 07 N92.6 Patient is a 20yo white female here today for concerns of continued irregular menses. Hx of irregular menses since menarche age 9yo. Periods are usually q28-36d with occasional q72-88d between periods; lasting 4-5d moderate to light flow with some dysmenorrh ea. Her main concerns today are absence of menses since 02/2020 & why periods continues to be irregular. We agreed to pursue TVUS & labs this visit; will perform full pelvic exam next visit prn. Time spent in visit is a total of 18 mins with at least 50% of visit consisting of counseling and review of plan of care. Amenorrhea 36943065 N91. 2 No menses since 02/2020. Hx of irregular cycles q1-4mos. 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 UPT is neg Polycystic ovaries 61348 008 E28.2 Labs ordered to r/o PCOS/other anovulator y issues. [id number] [facility] [address] [address] 06/10/2020 12:34:42 06/10/2020 13:20:05 Oligomenorrhea 15447069 N91.5 [id number] Delfina Ball [facility] [address] [address] 07/08/2020 10:42:33 07/08/2020 13:00:47 Oligomenorrhea 75148877 N91.5 Hx of irregular menses TUVS shows multiple follicles both ovaries which could be suggestive of PCOS. Hirsutism We discussed possibilit y of PCOS. Literature given. She does not want to be on daily control. Feels they effected her moods to drasticall y & could not tolerate them. We discussed q1-3mos Prometrium for a with drawal bleed if she does not have a period on her own. She understand s lack of period past 3mos increases risks for precancers /cancers/d ysplasia's etc. Rx Prometrium 200mg sent. F/U x 3mos Female hirsutism 8497425 9 L68.0 High Testostero ne levels. Trial of Spironolac tone discussed & counseled on. Counseled on medication R/B's, Most common side effects, & use. All questions were answered to patient satisfacti on. She would like to trial this medication for this issue to decrease both abn hair growth & acne flare ups. Recent CMP shows K+ levels at 4.8. Will r/p T-levels & CMP in 3mos. Rx sent Spironolac tone 25mg daily. Literature given on this medication & possible relation to PCOS. [id number] Delfina Ball [facility] [address] [address] 07/27/2020 12:19:24 07/27/2020 12:53:43 Gynecologic examination [id number] Z01.419 Take Calcium with Vitamin D 1200mg daily if not receiving in daily diet. It is strongly advised to have an annual flu shot and up can obtain at most pharmacies . If you have not had a TDap shot in the last 10 years you should obtain one as well. Discussed with patient & provided with informatio n regarding Gardisil vaccine to prevent the 4 strains for HPV that cause cervical cancer if under age 26. Encourage safe sexual practices, to use condoms and limit partners if not already in a monogamous relationsh ip. Do monthly self breast exams. Have mammogram yearly or every other year depending on family history. BRCA testing is now available for patients with strong genetic history of female cancer. If interested contact the office. Engage in daily exercise of low impact aerobic exercise 45-60 minutes 4-5 times weekly. Avoid tobacco and illicit drugs as well as using moderation with alcohol intake less than 1-2 8 oz beverages daily. This lifestyle behavior pattern will lead to less health conditions and longer life span. If BMI greater than 25 weight watchers or dietary consult advised. Patient received above instructio ns, and questions have been answered. If you have any questions please call or respond to this email. Patient was made aware of the patient portal and may obtain a paper copy of today's plan if desired. Doing well no issues this year. Opts for pap & std screening Same partner x 2.5yrs now[place]. 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 Will let us know if interested in monthly BC instead. Cystic acne [id number] L70 .0 R/P labs & if any changes need to be made will call her. F/U in 6mos for r/p labs CMP R/P labs done today. Will stay on current dosage unless otherwise indicated. RTO x 6mos f/u. Time spent in visit is a total of 15 mins with at least 50% of visit consisting of counseling and review of plan of care. [id number] Delfina Ball [facility] [address],[place] [address] 03/29/2021 11:03:09 03/29/2021 11:28:38 Cystic acne [id number] L70.0 Doing well on this therapy. Controllin g acne & has regulated her menstrual cycles. Very happy with this result. Wishes to stay on this method of therapy. Will update labs & if any issues or changes required we will contact her with plan of care. Time spent in visit is a total of 15 mins with at least 50% of visit consisting of counseling and review of plan of care. Additional precaution jalen measures were taken to minimize potential exposure to the Covid-19 virus during this patient s visit, including available hand respiratory therapy instructor upon arrive, temperatur e check and being asked a series of screening questions. All staff wore face coverings during this encounter, as well as provided additional cleaning and sanitizing of all surfaces, including countertop s, pens, chairs, door handles, light switches, etc, prior to and following the patient s visit. [id number] Angle Ibanez [place] [address],[place] [address] 08/11/2021 15:56:34 08/11/2021 16:38:53 Urinary tract infectious disease [id number] N39.0 Urinary symptoms [id number] 08 R39.9 [id number] Delfina Ball [facility] [address],[place] [address] 04/22/2022 12:10:23 04/28/2022 00:10:37 Gynecologic examination [id number] Z01.419 Take Calcium with Vitamin D 1200mg daily if not receiving in daily diet. It is strongly advised to have an annual flu shot and up can obtain at most pharmacies . If you have not had a TDap shot in the last 10 years you should obtain one as well. Discussed with patient & provided with informatio n regarding Gardisil vaccine to prevent the 4 strains for HPV that cause cervical cancer if under age 26. Encourage safe sexual practices, to use condoms and limit partners if not already in a monogamous relationsh ip. Do monthly self breast exams. Have mammogram yearly or every other year depending on family history. BRCA testing is now available for patients with strong genetic history of female cancer. If interested contact the office. Engage in daily exercise of low impact aerobic exercise 45-60 minutes 4-5 times weekly. Avoid tobacco and illicit drugs as well as using moderation with alcohol intake less than 1-2 8 oz beverages daily. This lifestyle behavior pattern will lead to less health conditions and longer life span. If BMI greater than 25 weight watchers or dietary consult advised. Patient received above instructio ns, and questions have been answered. If you have any questions please call or respond to this email. Patient was made aware of the patient portal and may obtain a paper copy of today's plan if desired. Pap/hpv q3yrs unless otherwise indicated per asccp STD Screen declined Genetic Screen discussed Colon Screen na Dexa Screen na Routine Labs naMammo na Cystic acne [id number] L70 .0 Doing well on this therapy. Controllin g acne & has regulated her menstrual cycles. Very happy with this result.RF sent x 1yrLabs updated [id number] Delfina Ball [facility] [address] [address] 07/12/2023 11:58:26 07/12/2023 15:00:01 Gynecologic examination [id number] Z01.419 Z11.3 Z11.8 Take Calcium with Vitamin D 1200mg daily if not receiving in daily diet. It is strongly advised to have an annual flu shot and up can obtain at most pharmacies . If you have not had a TDap shot in the last 10 years you should obtain one as well. Discussed with patient & provided with informatio n regarding Gardisil vaccine to prevent the 4 strains for HPV that cause cervical cancer if under age 26. Encourage safe sexual practices, to use condoms and limit partners if not already in a monogamous relationsh ip. Do monthly self breast exams. Have mammogram yearly or every other year depending on family history. BRCA testing is now available for patients with strong genetic history of female cancer. If interested contact the office. Engage in daily exercise of low impact aerobic exercise 45-60 minutes 4-5 times weekly. Avoid tobacco and illicit drugs as well as using moderation with alcohol intake less than 1-2 8 oz beverages daily. This lifestyle behavior pattern will lead to less health conditions and longer life span. If BMI greater than 25 weight watchers or dietary consult advised. Patient received above instructio ns, and questions have been answered. If you have any questions please call or respond to this email. Patient was made aware of the patient portal and may obtain a paper copy of today's plan if desired.Pa p due q3yrs per asccp unless otherwise indicated. STD Screen declinedGe netic Screen discussedC olon Screen naDexa Screen naRoutine Labs pcp Cystic acne [id number] L70 .0 Doing well on this therapy. Controllin g acne & has regulated her menstrual cycles. Very happy with this result.RF sent x 1yrLabs ordered Anxiety [id number] F32.A Today Danna has expressed wanting assistance with anxiety/de pression that is greatly effecting her AOL/Every day functionin g. She is having negative cyclic thoughts (neg suicidal ideations/ thoughts of self harm); anxiety laden; worried about future job; stressed planning wedding; recent of loved one; engaged; will have thoughts of impending doom some days; like I will never find a job I need/want or my awesome boyfriend will suddenly leave me even though we have no relationsh ip problems. Feels disappoint ed she didn't get a college degree sooner. Today we agreed to starting SSRI Zoloft & needs to consider counselor. Would like to refer to psychiatry once insurance changes unless otherwise indicated. Counseled on r/b's, most common side effects of this therapy with instructio ns to stop medication with any significan t abnormal change in mood especially with thoughts of suicide/se lf-harm/cisneros rm to others. Understand ing verbalized . 4wk med check will be required in person.Dominic l sooner if any issues. [id number] Delfina Ball [facility] [address],[place] [address] 08/08/2023 10:33:27 08/08/2023 12:21:26 Anxiety [id number] F32.A Patient is here today for a medicaton check of zoloft 25mg-50mg. She voices goals of therapy have been met with use of this therapy using 25mg daily; okay to take 50mg if has a more stressful day as discussed especially during luteal phase. She denies neg side effects. She is eating, drinking, sleeping well; moods are stable & neg suicidal ideations/ thoughts of self harm. Wishes to continue this method of zoloft. Appropriat e to continue this medication . Time spent in visit is a total of 25 mins with at least 50% of visit consisting of counseling and review of plan of care. 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 Understand ing verbalized and agreeable to plan of care. Time spent in visit is a total of 15 mins with at least 50% of visit consisting of counseling and review of plan of care. Vitamin D deficiency 347 39572 E55.9 [id number] Delfina Ball [facility] [address],[place] [address] 01/24/2024 11:17:32 01/24/2024 15:46:42 Polycystic ovary syndrome 121893914 E28.2 Today we discussed trial of metformin with a 2mos f/u as she has hx of PCOS.Will update labsWants to update US since cycle has been more crampy. RTO x2mos f/uWill reach out with results of USDiscusse d/counsele d on Menstrual cycle/phas es of cycle. Counseled on medication R/B's, Most common side effects, & use. All questions were answered to patient satisfacti on. Time spent in visit is a total of 30 mins with at least 50% of visit consisting of counseling and review of plan of care. Vitamin D deficiency 347 86489 E55.9 Hx of def Secondary dysmenorrhea 48511009 N94.5 [id number] [facility] [address] [place] [address] 01/25/2024 10:18:22 01/25/2024 11:01:31 Pain in pelvis 52124066 R10.2 [id number] [facility] [address],[place] [address] 03/26/2024 11:30:31 03/26/2024 12:01:32 Polycystic ovary syndrome 766072610 E28.2 Using Metformin for Fertility purposes/H x of PCOS.Diary menstrual- keep, our goal is regular monthly q28-32d cycles.Und erstands use Provera 10mg x 10 days if no period q1-3mos (prevent precancers /cancers uterine lining--al ways take UPT prior to use of this medication ). If nothing happening by 1yr; recommend consult with fertility specialist in the area. Time spent in visit is a total of 21 mins with at least 50% of visit consisting of counseling and review of plan of care. [id number] [facility] [address] [place] [address] 07/24/2024 16:37:05 07/24/2024 17:32:40 Threatened miscarriage 15622752 O20.0 Z3A.01 [id number] [facility] [address] [place] [address] 08/22/2024 11:51:44 08/22/2024 12:18:51 [id number] Darian Lozano MD [place] [address] [place] [address] 08/22/2024 11:52:26 08/22/2024 14:31:32 Amenorrhea 40933124 N91.2 this patient is a 24-year-ol d female who presents for amenorrhea . She is a positive test. Ultrasound revealed a 1st trimester gestation. Patient has no complaints . We talked about early care. Talked about genetic screening. We talked about her ultrasound results. We talked about the 12 week ultrasound that has genetic screening components . She was given recommenda tions on exercise, diet, over-the-c ounter medication s. We reviewed her obstetric history. We reviewed her medical history. We reviewed her social history. She will begin routine care at her next visit. [id number] [facility] [address],[place] [address] 09/05/2024 11:51:26 09/05/2024 12:38:04 screening 478093821 Z36.82 Z3A.12 [id number] Paola No [place] [address],[place] [address] 09/05/2024 11:52:19 09/05/2024 15:23:37 Routine care 305687699 Z34.90 [id number] Darian Lozano MD [place] [address],[place] [address] 10/03/2024 11:27:05 10/03/2024 12:40:43 Routine care 044436041 Z34.90 [id number] [facility] [address],[place] [address] 10/31/2024 09:30:23 10/31/2024 10:51:33 screening for malformation 873344173 Z36.3 Z3A.20 [id number] Darian Lozano MD [place] [address],[place] [address] 10/31/2024 09:31:34 10/31/2024 11:44:53 Routine care 446908355 Z34.90 [id number] Ashlee Elizabeth [place] [address],[place] [address] 11/07/2024 11:57:35 11/07/2024 14:39:04 screening 369526508 Z36.2 O26.872 Z3A.21 [id number] Ashlee Elizabeth [place] [address],[place] [address] 11/12/2024 13:29:17 11/12/2024 14:14:22 Short cervical length in 057492599 O26.872 Z3A.22 [id number] Darian Lozano MD [place] [address],[place] [address] 11/28/2024 11:22:13 11/28/2024 12:13:16 Routine care 452938192 Z34.90 [id number] Lucia Moss [place] [address],[place] [address] 12/12/2024 13:54:32 12/12/2024 14:51:38 Short cervical length in 064328096 O26.872 Z3A.26 [id number] Darian Lozano MD [place] [address],[place] [address] 12/12/2024 13:55:48 12/12/2024 15:25:06 Routine care 169861313 Z34.90 [id number] Darian Lozano MD [place] [address],[place] [address] 12/26/2024 11:25:01 12/26/2024 12:33:16 Routine care 017724481 Z34.90 Health Concerns Section Related Observation LastModified by Organization Detai ls LastModified Time None Recorded Concern Status LastModified by Organization Details LastModified Time None Recorded Advance Directives Directive None Recorded Payers Encounter Date Sequence Insurance Name Policy Number Policy Galeano Covered Member ID Galeano Member ID Guarantor Name 11/12/2024 1 [place] [id number] Mitul Rickie Spivey [id number] Danna Spivey 11/28/2024 1 [place] [id number] Mitul Spivey [id number] Danna Spivey 12/12/2024 1 [place] [id number] Mitul Spivey [id number] Danna Spivey 12/12/2024 1 [place] [id number] Mitul Spivey [id number] Danna Spivey 12/26/2024 1 [place] [id number] Mitul Spivey [id number] Danna Spivey OBGyn Episode Ob Episode Information Episode Created Date Number of Fetuses Patient Bloodtype Patient rh Status Prepregnancy Weight lbs Domestic Partner Domestic Partner Phone 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 Name 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 Status 09/05/20 24 1 A Positive Jeremia h OPEN Fetus Data First Name Last Name Admitted to NICU Weight (g) Sex Living Outcome Pediatric Complications Fetus ID Race Codes Race Delivery Type [id number] Problems Problem Notes [facility] recommendation per A my recommendations pelvic rest with work restrictions no lifting over 10lbs, no strenuous activity, taking breaks every 2hrs to sit, limit work shift to 8 hours, light duty if possible Problem Name Start Date End Date Resolution Snomed Code Not e COVID-19 09/18/2024 [id number] Harsha womack y, serial growth Short cervical length in [id number] vaginal progesterone , 2.3cM 21WK [facility] referral faxed 11/07 STLscheduled [facility] STL 11/13/24 Level II US and consult 0815 CL 2.38-2.92 average 2.4 Baltazar Calculation Initial Baltazar Date Initial Exam Date Initial Exam Provider Initial Ultrasound Date Last Menstrual Period Date Ultra Sound Weeks Gestation 09/05/2024 08/22/2024 06/10/2024 10 Eighteen To Twenty Week Baltazar Update Ultra Sound Date Fundal Height At Umbil Quickening Date Ultra Sound Latest Weeks Gestation Final Baltazar Confirmed By Final Baltazar Confirmed Date Final Baltazar Date Ultra Sound Latest Days Gestation 0 [email or web address] 09/05/2024 03/17/20 25 0 Pre- Flowsheet Flowsheet Date 09/05/2024 Shipley Score Blood Edema Fundus Height Fundus Units Glucose Ketones Leukocytes Nitrite Labor Signs Protein Cervic Dilation Cervic Effacement Cervic Station 13 cm Type Weight in lbs Pre/Post Dialysis Refused Weight 181.452478025316 BP Diastolic BP Location Tested BP Systolic BP Type 86 L arm 120 sitting Fetus Heart Rate Present A 145 Fetus Movement A No Comments this patient is a 24 year-ol d nuliparous female at 12 weeks' gestation who presents for initial care. She has a history of term vaginal births. Her medical, surgical, obstetric history is unremarkable. She is vaccinated. She was given precautions recommendations for . We talked about vaccines in . Talked about care in detail. She is having genetic testing. She had a normal 12 week ultrasound. To begin routine care. Flowsheet Date 10/03/2024 Shipley Score Blood Edema Fundus Height Fundus Units Glucose Ketones Leukocytes Nitrite Labor Signs Protein Cervic Dilation Cervic Effacement Cervic Station Type Weight in lbs Pre/Post Dialysis Refused 187.056798820129 BP Diastolic BP Location Tested BP Systolic BP Type 70 L arm 100 sitting Fetus Heart Rate Present A 145 Fetus Movement A No Comments no complaints, no problems, routine care, no contractions, no vaginal bleeding, no loss of fluid, no cramping Flowsheet Date 10/31/2024 Shipley Score Blood Edema Fundus Height Fundus Units Glucose Ketones Leukocytes Nitrite Labor Signs Protein Cervic Dilation Cervic Effacement Cervic Station Type Weight in lbs Pre/Post Dialysis Refused BP Diastolic BP Location Tested BP Systolic BP Type Fetus Heart Rate Present Fetus Movement Comments Flowsheet Date 10/31/2024 Shipley Score Blood Edema Fundus Height Fundus Units Glucose Ketones Leukocytes Nitrite Labor Signs Protein Cervic Dilation Cervic Effacement Cervic Station Type Weight in lbs Pre/Post Dialysis Refused 192.503415641206 BP Diastolic BP Location Tested BP Systolic BP Type 78 L arm 118 sitting Fetus Heart Rate Present A 145 Fetus Movement A Yes Comments no complaints, no problems, routine care, no contractions, no vaginal bleeding, no loss of fluid, no cramping.low normal cervical - to repeat lenght two weeks Flowsheet Date 11/07/2024 Shipley Score Blood Edema Fundus Height Fundus Units Glucose Ketones Leukocytes Nitrite Labor Signs Protein Cervic Dilation Cervic Effacement Cervic Station Type Weight in lbs Pre/Post Dialysis Refused BP Diastolic BP Location Tested BP Systolic BP Type Fetus Heart Rate Present Fetus Movement Comments Flowsheet Date 11/12/2024 Shipley Score Blood Edema Fundus Height Fundus Units Glucose Ketones Leukocytes Nitrite Labor Signs Protein Cervic Dilation Cervic Effacement Cervic Station Type Weight in lbs Pre/Post Dialysis Refused BP Diastolic BP Location Tested BP Systolic BP Type Fetus Heart Rate Present Fetus Movement Comments Flowsheet Date 11/28/2024 Shipley Score Blood Edema Fundus Height Fundus Units Glucose Ketones Leukocytes Nitrite Labor Signs Protein Cervic Dilation Cervic Effacement Cervic Station Type Weight in lbs Pre/Post Dialysis Refused 199.400452834581 BP Diastolic BP Location Tested BP Systolic BP Type 78 L arm 116 sitting Fetus Heart Rate Present A 144 Present Fetus Movement A Yes Comments no complaints, no problems, routine care, no contractions, no vaginal bleeding, no loss of fluid, no cramping Flowsheet Date 12/12/2024 Shipley Score Blood Edema Fundus Height Fundus Units Glucose Ketones Leukocytes Nitrite Labor Signs Protein Cervic Dilation Cervic Effacement Cervic Station Type Weight in lbs Pre/Post Dialysis Refused BP Diastolic BP Location Tested BP Systolic BP Type Fetus Heart Rate Present Fetus Movement Comments Flowsheet Date 12/12/2024 Shipley Score Blood Edema Fundus Height Fundus Units Glucose Ketones Leukocytes Nitrite Labor Signs Protein Cervic Dilation Cervic Effacement Cervic Station Type Weight in lbs Pre/Post Dialysis Refused 201.133499029288 BP Diastolic BP Location Tested BP Systolic BP Type 84 L arm 134 sitting Fetus Heart Rate Present A 132 Fetus Movement A Yes Comments Cervical length remains 2.2, good growth on ultrasound today. Flowsheet Date 12/26/2024 Shipley Score Blood Edema Fundus Height Fundus Units Glucose Ketones Leukocytes Nitrite Labor Signs Protein Cervic Dilation Cervic Effacement Cervic Station 28 cm Type Weight in lbs Pre/Post Dialysis Refused 205.111803190259 BP Diastolic BP Location Tested BP Systolic BP Type 77 L arm 113 sitting Fetus Heart Rate Present A 135 Present Fetus Movement A Yes Comments no complaints, no problems, routine care, no contractions, no vaginal bleeding, no loss of fluid, no cramping Menstrual History Last Menstrual Date Menses Monthly On Bcp Conception Prior Menses Frequency Hcg Plus Date Menarche Onset Age 0806/10/2024 true Delivery Information Delivery Date Delivery Type Labor Anesthesia Weeks Gestation Incision Type Labor Labor Length Hrs Delivered By Post Complications Tubal Sterilization Discharge Date Comments Discharge Information Feeding Method Contraceptive Method Maternal HG B and HCT Levels
[2025-01-08 18:01] VITALS: BP 109/67; PULSE 97
[2025-01-08 18:15] VITALS: BP 102/63; PULSE 90
[2025-01-08 18:21] LABS: Add Urine Microscopic? NO; Appearance Urine Clear (Clear); Bilirubin Urine Negative (Negative); Blood Urine Negative (Negative); Color Urine Yellow (Yellow); Glucose Urine UA Negative (Negative); Ketones Urine Negative (Negative); Leukocyte Esterase Ur Negative LEU/UL (Negative); Nitrate Urine Negative (Negative); Protein Urine Negative (Negative); Specific Grav Ur 1.003 (1.001-1.035); Urobilinogen Urine 0.2 mg/dL (<2.0)
[2025-01-08 18:30] VITALS: BP 110/69; PULSE 86
[2025-01-08 18:49] VITALS: BMI 33.7
--- NOTE | 2025-01-08 18:49 | OBADM ---
This patient, Danna Spivey, admitted to the OB room OB Post 113 for observation. Patient/family oriented to hospital policies and general routines including ID bracelet, bed and alarms, visiting hours, pain management, procedures, bathroom and other care routines, personal items, smoking policy, room service/diet, and visiting hours. Patient/Family are encouraged to report perceived risks to care and to ask questions if they do not understand what they are told or what they should do.
[2025-01-08] MEDS: CYCLOBENZAPRINE HCL 5 MG TABLET PO (18:55)
[2025-01-08 19:22] VITALS: BP 102/60; PULSE 54; PULSE 60; PULSE 86; O2SAT 86; O2SAT 87
--- NOTE | 2025-01-10 07:18 | PM.OBTRLD ---
OB - Triage/Final Diagnosis Visit Information Date of evaluation: 01/08/25 Reason for evaluation: threatened labor Comments/Additional reasons for admission: I have assessed the risk for this patient, Danna Spivey, and determined that she would benefit from observation care. Evaluation Laboratory results: Laboratory Tests 01/08/25 18:10 Urine Color Yellow Urine Appearance Clear Urine pH 7.0 Ur Specific [place] 1.003 Urine Protein Negative Urine Glucose (UA) Negative Urine Ketones Negative Ur Blood (Man) Negative Urine Nitrate Negative Urine Bilirubin Negative Urine Urobilinogen 0.2 Leukocyte Esterase Rfl Negative
== END 2025-01-08 19:29 | disposition home or self-care (01) ==
PROVIDERS: Admitting Provider Obstetrics & Gynecology; PCP Nurse Practitioner Family; Visit Provider Obstetrics & Gynecology
DX: O47.03 False labor before 37 completed weeks of gestation, third trimester (principal); Z3A.30 30 weeks gestation of pregnancy
CPT/HCPCS: 81003; A9270; G0378; G0379

== ENCOUNTER 2025-02-20 19:31 | Observation (INO) | payer OTHER, BC, SELFPAY ==
[2025-02-20] VITALS (45 sets, daily range): BP systolic 108–116; BP diastolic 60–80; PULSE 82–103; O2SAT 95–100; BMI 33.8
--- NOTE | 2025-02-20 19:31 | PC.NURSE ---
Pt arrives to unit post fall at work.
--- OUTSIDE RECORDS SUMMARY | 2025-02-20 19:40 | XMS_ITS | Continuity of Care Document ---
Author Organization [facility] Address [address] [place] [address] [place] [address] Care Team Providers Care Manager Battery Name Role Phone PAPOHarjinder LISE Primary Care Provider [phone] Assessment No assessment recorded. Plan of Treatment Reminders Order Date Submit Date Provider Last Modified By Organization Details Last Modified Time Details Appointments U/S OB GROWTH 2024 10:30A M ULTRASOUND Not available Not available Not available OB ROUTINE 2024 11:15A M Henrietta LOZANO MD Not available Not available Not available Lab None recorde d. Referral None recorde d. Procedures None recorde d. Surgeries None recorde d. Imaging US, obstetr ic, follow- up 2024 025 [email or web address] [address], [address], [place], [address], 02/20/2025 13:43:17 Medication Orders None recorde d. Patient TargetsNo targets recorded. Patient InstructionsNo instructions recorded. Reason for Referral None Reported. Results Created Date Observation Date Name Description Value Unit Range Abnormal Flag Note LastModifiedBy Organization Detail LastModifiedTime 09/05/20 24 09/05/2024 US, obste tric, nucha l trans lucen cy No observ ation record ed. [email or web address] [facility] [address], [place], [address], 09/05/2024 13:54:10 09/05/20 24 09/05/2024 US, obste tric, follo w-up No observ ation record ed. [email or web address] [address], [place], [address], 09/05/2024 14:56:43 10/31/19 25 10/31/2024 US, obste tric, 2nd or 3rd trime ster No observ ation record ed. [address], [place], [address], 10/31/2024 12:23:53 10/31/19 25 10/31/2024 US, obste tric, trans vagin al No observ ation record ed. [address], [place], [address], 10/31/2024 12:24:08 10/31/19 25 10/31/2024 US, obste tric, follo w-up No observ ation record ed. [email or web address] [address], [place], [address], 11/07/2024 10:08:47 11/07/19 25 11/07/2024 US, obste tric, trans vagin al No observ ation record ed. [facility] [address], [place], [address], 11/07/2024 18:31:11 11/07/19 25 11/07/2024 US, obste tric, limit ed No observ ation record ed. [facility] [address], [place], [address], 11/07/2024 18:31:21 11/07/19 25 11/07/2024 US, obste tric, trans vagin al No observ ation record ed. [email or web address] [address], [place], [address], 11/07/2024 21:56:16 11/12/19 25 11/12/2024 US, obste tric, trans vagin al No observ ation record ed. [email or web address] [facility] [address], [place], [address], 11/12/2024 17:42:46 11/12/19 25 11/12/2024 US, obste tric, follo w-up No observ ation record ed. [email or web address] [address], [place], [address], 11/13/2024 09:07:22 11/13/19 25 11/13/2024 US, obste tric, follo w-up No observ ation record ed. [email or web address] [facility] [address] [address], [place], [address], 11/25/2024 23:07:53 11/20/19 25 11/20/2024 US, obste tric, follo w-up No observ ation record ed. [email or web address] [facility] [address] [address], [place], [address], 11/26/2024 18:48:01 11/22/19 25 11/20/2024 US, obste tric, follo w-up No observ ation record ed. [email or web address] [facility] [address] [facility], [place], [address], 12/04/2024 17:16:19 12/12/19 25 12/12/2024 US, obste tric, follo w-up No observ ation record ed. [email or web address] [facility] [address], [place], [address], 12/12/2024 18:15:40 12/12/19 25 12/12/2024 US, obste tric, trans vagin al No observ ation record ed. [email or web address] [facility] [address], [place], [address], 12/12/2024 18:13:48 12/12/19 25 12/12/2024 US, obste tric, follo w-up No observ ation record ed. [email or web address] [address], [place], [address], 12/12/2024 15:24:28 01/24/20 25 01/23/2025 US, obste tric, follo w-up No observ ation record ed. [address], [place], [address], 01/30/2025 10:21:18 01/24/20 25 01/23/2025 US, obste tric, follo w-up No observ ation record ed. [email or web address] [facility] [address], [place], [address], 01/23/2025 17:07:39 02/21/20 25 02/20/2025 US, obste tric, follo w-up No observ ation record ed. [email or web address] [facility] [address], [place], [address], 02/20/2025 13:42:06 02/21/20 25 02/20/2025 US, obste tric, follo w-up No observ ation record ed. [email or web address] [address], [place], [address], 02/20/2025 12:16:23 Result Notes None recorded. 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 10:[facility] Concept Completed 201703/29/2021 Encntr for general adult medical exam w/o abnormal findings ;Recorde d Elsewher e: No Locat ion: Brandon dany [facility] S ource: EHR 3D Animator darrion: N Practi ce ID: 0001 Phil lable Time: 01:00:00 PM Vandana Morris [facility] 1 10:34:02 Educatio n Completed 201803/29/2021 Encounte r for other general counseli ng and advice on contrace ption;Re corded Elsewher e: No Locat ion: Brandon saenz [facility] S ource: EHR 3D Animator darrion: N Practi ce ID: 0001 Phil lable Time: 10:15:00 AM Vandana Morris [facility] 10:33:52 Finding of pattern of menstrua l cycle [id number] Completed 201703/29/2021 Irregula r interval s between menstrua l bleeding ;Recorde d Elsewher e: No Locat ion: Brandon saenz [facility] S ource: EHR 3D Animator darrion: N Practi ce ID: 0001 Phil lable Time: 01:00:00 PM Vandana Morris [facility] 10:33:[address] Concept Completed 201503/29/2021 Encntr for routine child health exam w/o abnormal findings ;Recorde d Elsewher e: No Locat ion: Brandon dany [facility] S ource: EHR 3D Animator darrion: N Practi ce ID: 0001 Phil lable Time: 10:15:00 AM Vandana Morris [facility] 10:34:03 Irregula r intermen strual bleeding [id number] Completed 201303/29/2021 Irregula r bleeding between periods; Recorded Elsewher e: No Locat ion: [place] saenz [facility] S ource: EHR 3D Animator darrion: N Paulyti ce ID: 0001 Phil lable Time: 04:00:00 PM Vandana roe [facility] 1 10:33:57 Irritabi lity and anger [id number] Completed 201703/29/2021 Irritabi lity;Rec orded Elsewher e: No Locat ion: Vestalilia dany [facility] S ource: EHR 3D Animator darrion: N Paulyti ce ID: 0001 Phil lable Time: 01:00:00 PM Vandana roe [facility] 10:33:58 Pregnanc y test negative [id number] Completed 201503/29/2021 Encounte r for pregnanc y test, result negative ;Recorde d Elsewher e: No Locat ion: Vestalilia dany [facility] S ource: EHR 3D Animator darrion: N Paulyti ce ID: 0001 Phil lable Time: 10:15:00 AM Vandana Morris [facility] 1 10:34:00 Family planning surveill ance Completed 201403/29/2021 Contrace ptive surveill ance;Rec orded Elsewher e: No Locat ion: Rickie dany [facility] S ource: EHR 3D Animator darrion: N Paulyti ce ID: 0001 Phil lable Time: 11:00:00 AM Vandana Morris [facility] 10:33:53 Amenorrh ea [id number] Completed 201303/29/2021 Amenorrh ea;Recor ded Elsewher e: No Locat ion: Vestalilia dany [facility] S ource: EHR 3D Animator darrion: N Paulyti ce ID: 0001 Phil lable Time: 08:30:00 AM Vandana roe [facility] 10:33:48 Acute vaginiti s 24907820 Completed 201903/29/2021 Vaginiti s;Record ed Elsewher e: No Locat ion: Vestalilia dany [facility] S ource: EHR 3D Animator darrion: N Paulyti ce ID: 0001 Phil lable Time: 08:30:00 AM Vandana Morris null, [facility] 1 10:33:47 Pregnanc y 14170340 Active 2023 Paola No null, [facility] 4 12:48:30 COVID-19 178288569 Active 2023 bASA daily, serial growth Yamilex Otto null, [facility] 4 10:08:36 COVID-19 583974631 Active 2023 bASA daily, serial growth Yamilex Otto null, [facility] 4 10:08:36 Short cervical length in pregnanc y 611549164 Active vaginal progeste florian , 2.3cM 21WK [facility] referral faxed 11/07 STL schedule d [facility] STL 11/13/24 Level II US and consult 0815 CL 2.38-2.9 2 average 2.4 Yamilex Otto null, [facility] 5 16:46:37 Short cervical length in pregnanc y 072879506 Active vaginal progeste florian , 2.3cM 21WK [facility] referral faxed 11/07 STL schedule d [facility] STL 11/13/24 Level II US and consult 0815 CL 2.38-2.9 2 average 2.4 Yamilex Otto null, [facility] 5 16:46:37 Finding of uterine contract ions 590353420 Active Darian Lozano MD [address], [place], [address], [facility] 5 13:02:51 Problem Notes None recorded. Procedures Surgical History Date Name Laterality Status Provider Name and Address Organization Details Recorded Time 04/22/20 Date of Last Pap Smear completed Gricelda Godwin [facility] 07/11/2023 19:34:21 dental consultation and report completed Lita Murillo [facility] 05/27/2020 12:14:29 Imaging Results Imaging Date Name Status LastModified by Organiz ation Details LastModified Time 02/20/2025 US, obstetric, follow-up completed [email or web address] [facility] [address], [place], [address], 02/20/2025 13:42:06 Procedure Notes None recorded. Medical Equipment None [...] Prescrib ed Elsewher e: No Locat ion: [facility] M odify By: jason steve Enco unter DateTime : 11/14/19 08:30:00 AM Not Available Not Available Not Available Diflucan 150 mg tablet take 1 tablet by oral route once 11/14 completed Prescrib ed Elsewher e: No Locat ion: [facility] M odify By: jason ich Enco unter DateTime : 11/07/19 01:00:27 PM [...] Not Available Not Available Not Available Nortrel 35 (28) 1 mg-35 mcg tablet take 1 tablet by oral route every day 03/26 completed Prescrib ed Elsewher e: No Locat ion: [place] saenz [facility] odify By: ubaldo nicolas DateTime : 12/29/19 09:52:26 AM Not Available Not Available Not Available Nortrel 35 (21) 1 mg-35 mcg tablet take 1 tablet by oral route every day for 28 days 03/30 completed Prescrib ed Elsewher e: No Locat ion: [place] saenz [facility] odify By: arnaldo patel DateTime : 03/03/20 11:35:18 AM Not Available Not Available Not Available minocycli ne 50 mg capsule take 2 capsule by oral route every 12 hours 11/14 completed Prescrib ed Elsewher e: No Locat ion: [place] saenz [facility] odify By: tatiana sky DateTime : [...] completed Not Available Not Available Not Available progester one micronize d 100 mg capsule active Not Available Not Available Not Available amoxicill [...] Prescrib ed Elsewher e: No Locat ion: Vestalilia dany [facility] odify By: tatiana Dany stanunter DateTime : 07/03/20 19 10:15:00 AM Not Available Not Available Not [...] Not Available Not Available No t Available Endometri n 100 mg vaginal insert 2024 active Not Available Not Available Not Avai lable metformin ER 1,000 mg 24 hr tablet,ex tended release (gastric reten.) TAKE 1 TABLET BY MOUTH EVERY DAY 03/07 completed Not Available Not Available Not Available Minastrin 24 Fe 1 mg-20 mcg (24)/75 mg (4) chewable tablet chew 1 tablet by oral route every day 04/08 completed Prescrib ed Elsewher e: No Locat ion: [place] sa[facility] odify By: ebony Gutierrez er DateTime : 05/15/20 14 08:30:00 AM Not Available Not Available Not Available Vitals Date Recorded Body weight Systolic blood pressure Diastolic blood pressure Provider Name and Address Organization Details Last Updated DateTime 02/20/2025 16197.9519 2 g 123 mm[Hg] 84 mm[Hg] Paola No [facility] 02/20/2025 12:43:27 Social History Question Answer Notes LastModified by Organizat ion Details LastModified Time Tobacco Smoking Status Never Smoker Lita roe [facility] 05/27/2020 12:14:16 What Is Your [...] Anxious, Or Unable To Sleep At Night)? [id number] Information not available 03/29/2021 Do You Use [...] Not available 2021 12:34:09 Mother Uterine prolapse [email or web address] Not available 2023 11:52:18 Mother Acute lymphoid leukemia Not available 2023 13:08:17 Mother Malignant neoplasm of ovary Not available 2023 13:08:29 Paternal Grandfather Malignant neoplasm of lung [email or web address] Not available 2022 12:13:17 [...] SNOMED-CT Code Diagnosis ICD10 Code Diagnosis Note [id number] Darian Lozano MD [facility] [address] [address] 01/23/2025 11:30:55 01/23/2025 12:16:55 History of SARS-CoV-2 6326752214 [id number] Z86.16 Z3A.32 [id number] Darian Lozano MD [facility] [address],[place] [address] 01/23/2025 11:31:16 01/23/2025 13:10:57 Routine care 003219043 Z34.90 [id number] MD Juan Watts [address],[place] [address] 02/06/2025 10:09:04 02/06/2025 11:09:16 Third trimester 88973568 Z34.03 [id number] Darian Lozano MD [facility] [address],[place] [address] 02/12/2025 16:29:58 02/12/2025 16:46:18 20680874 Z33.1 Pt here for BP check due to change in edema. BP 115/81. Pt's edema assessed. Minimal bilateral lower extremity edema noted at this time and no hand or face edema noted. Pt instructed on pre-eclamp bruna symptoms and instructed to continue to monitor. Pt verbalized understand ing and will call back if she experience s a change in symptoms. Meg espinoza, RN [id number] MD Juan Watts [address],[place] [address] 02/20/2025 11:29:07 02/20/2025 12:17:56 History of SARS-CoV-2 9939368293 38785015 Z86.16 Z3A.36 [id number] MD Juan Watts [address],[place] [address] 02/20/2025 11:29:30 02/20/2025 16:57:40 Third trimester 40103493 Z34.03 Health Concerns Section Related Observation LastModified by Organization Detai ls LastModified Time None Recorded Concern Status LastModified by Organization Details LastModified Time None Recorded Payers Encounter Date Sequence Insurance Name Policy Number Policy Galeano Covered Member ID Galeano Member ID Guarantor Name 02/20/2025 1 [place] [id number] Mitul Spivey [id number] Danna Spivey OBGyn Episode Ob Episode Information Episode Created Date Number of Fetuses Patient Bloodtype Patient rh Status Prepregnancy Weight lbs Domestic Partner Domestic Partner Phone Father Name 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 [employer] Status 09/05/20 24 1 A Positive Jeremia h OPEN Fetus Data First Name Last Name Admitted to NICU Weight (g) Sex Living Outcome Pediatric Complications Fetus ID Race Codes Race Delivery Type [id number] Problems Problem Notes [facility] recommendation per A my recommendations pelvic rest with work restrictions no lifting over 10lbs, no strenuous activity, taking breaks every 2hrs to sit, limit work shift to 8 hours, light duty if possible Problem Name Start Date End Date Resolution Snomed Code Not e Finding of uterine contractions 832213522 COVID-19 09/18/2024 [id number] Harsha womack y, serial growth Short cervical length in 221492174 vaginal progest erone , 2.3cM 21WK [facility] referral faxed 11/07 STLscheduled [facility] STL 11/13/24 Level II US and consult 0815 CL 2.38-2.92 average 2.4 Baltazar Calculation Initial [place] Date Initial Exam Date Initial Exam Provider [...] Weight in lbs Pre/Post Dialysis Refused Weight 181.451417860529 BP Diastolic BP Location Tested BP Systolic [...] Type Weight in lbs Pre/Post Dialysis Refused 187.765761550396 BP Diastolic BP Location Tested BP Systolic [...] Type Weight in lbs Pre/Post Dialysis Refused 192.157420884064 BP Diastolic BP Location Tested BP Systolic [...] Type Weight in lbs Pre/Post Dialysis Refused 199.949154379622 BP Diastolic BP Location Tested BP Systolic [...] Type Weight in lbs Pre/Post Dialysis Refused 201.334141345439 BP Diastolic BP Location Tested BP Systolic [...] Type Weight in lbs Pre/Post Dialysis Refused 205.099068789730 BP Diastolic BP Location Tested BP Systolic BP Type 77 L arm 113 sitting Fetus Heart Rate Present A 135 Present Fetus Movement A Yes Comments no complaints, no problems, routine care, no contractions, no vaginal bleeding, no loss of fluid, no cramping Flowsheet Date 01/09/2025 Shipley Score Blood Edema Fundus Height Fundus Units Glucose Ketones Leukocytes Nitrite Labor Signs Protein Cervic Dilation Cervic Effacement Cervic Station 30 cm Type Weight in lbs Pre/Post Dialysis Refused 206.134430483925 BP Diastolic BP Location Tested BP Systolic BP Type 85 L arm 121 sitting Fetus Heart Rate Present A 134 Present Fetus Movement A Yes Comments no complaints, no problems, routine care, no contractions, no vaginal bleeding, no loss of fluid, no cramping Flowsheet Date 01/23/2025 Shipley Score Blood Edema Fundus Height Fundus Units Glucose Ketones Leukocytes Nitrite Labor Signs Protein Cervic Dilation Cervic Effacement Cervic Station Type Weight in lbs Pre/Post Dialysis Refused BP Diastolic BP Location Tested BP Systolic BP Type Fetus Heart Rate Present Fetus Movement Comments Flowsheet Date 01/23/2025 Shipley Score Blood Edema Fundus Height Fundus Units Glucose Ketones Leukocytes Nitrite Labor Signs Protein Cervic Dilation Cervic Effacement Cervic Station Type Weight in lbs Pre/Post Dialysis Refused Weight 210.315905821128 BP Diastolic BP Location Tested BP Systolic BP Type 76 L arm 113 sitting Fetus Heart Rate Present A 144 Fetus Movement A Yes Comments no complaints, no problems, routine care, no contractions, no vaginal bleeding, no loss of fluid, no cramping, normal growth Flowsheet Date 02/06/2025 Shipley Score Blood Edema Fundus Height Fundus Units Glucose Ketones Leukocytes Nitrite Labor Signs Protein Cervic Dilation Cervic Effacement Cervic Station Type Weight in lbs Pre/Post Dialysis Refused 214.752095642117 BP Diastolic BP Location Tested BP Systolic BP Type 77 113 sitting Fetus Heart Rate Present A 140 Present Fetus Movement A Yes Comments no complaints, no problems, routine care, no contractions, no vaginal bleeding, no loss of fluid, no cramping Flowsheet Date 02/12/2025 Shipley Score Blood Edema Fundus Height Fundus Units Glucose Ketones Leukocytes Nitrite Labor Signs Protein Cervic Dilation Cervic Effacement Cervic Station Type Weight in lbs Pre/Post Dialysis Refused BP Diastolic BP Location Tested BP Systolic BP Type Fetus Heart Rate Present Fetus Movement Comments Flowsheet Date 02/20/2025 Shipley Score Blood Edema Fundus Height Fundus Units Glucose Ketones Leukocytes Nitrite Labor Signs Protein Cervic Dilation Cervic Effacement Cervic Station Type Weight in lbs Pre/Post Dialysis Refused BP Diastolic BP Location Tested BP Systolic BP Type Fetus Heart Rate Present Fetus Movement Comments Flowsheet Date 02/20/2025 Shipley Score Blood Edema Fundus Height Fundus Units Glucose Ketones Leukocytes Nitrite Labor Signs Protein Cervic Dilation Cervic Effacement Cervic Station 2cm 50% -3 Type Weight in lbs Pre/Post Dialysis Refused 216.451798453273 BP Diastolic BP Location Tested BP Systolic BP Type 84 L arm 123 sitting Fetus Heart Rate Present A 145 [...]
--- OUTSIDE RECORDS SUMMARY | 2025-02-20 19:40 | XMS_ITS | Data Portability ---
Author Organization [facility] Address [address] [place] [address] [place] [address] Care Team Providers Care Straight Cutter Name Role Phone LISE AMBRIZ Primary Care Provider [phone] Assessment Encounter Date Assessment Date Assessment LastModified by Organization Details LastModified Time 02/06/2025 02/06/2025 Patient is ___weeks . Discussed plan. Not available 02/06/2025 10:34:48 02/20/2025 02/20/2025 Patient is ___weeks . Discussed plan. Not available 02/20/2025 12:42:28 Plan of Treatment Reminders Order Date Submit [...] obstetr ic, follow- up 2024 025 [email or web address] [place], [address], [place], [address], 02/20/2025 13:43:17 US, obstetr ic, follow- up 2024 025 [email or web address] [address], [address], [place], [address], 01/23/2025 19:16:44 Medication Orders None recorde d. Patient TargetsNo targets recorded. Patient InstructionsNo instructions recorded. Reason for Referral None Reported. Results Created Date Observation Date Name Description Value Unit Range Abnormal Flag Note LastModifiedBy Organization Detail LastModifiedTime 12/27/1912/26/2024 HEMAT OCRIT (HCT) HCT 37.0 % (based on docume nted legal sex) 34.0-4 5.0 Not Available [facility] (Lab) [address], [place], [address], 12/27/2024 12:42:42 12/27/19 25 12/26/2024 HEMOG LOBIN (HGB) HGB 12.1 g/dL (based on docume nted legal sex) 11.6-1 5.4 Not Available [facility] (Lab) [address] [place], [address], 12/27/2024 12:42:42 12/27/19 25 12/26/2024 GTT - GESTA MARY L VENECIA Rowe, ACOG OB glucose, 1 hour screen 107 mg/dL 70-135 Not Available [facility] (Lab) [address] [place], [address], 12/27/2024 12:42:42 12/27/1912/26/2024 HIV 1/2 ANTIG EN/AN TIBOD Y, REFLE X CONFI RMATI ON HIV antigen/anti body Nonrea ctive nonrea ctive HIV-1 antig en and HIV-1 /HIV- 2 antib odies were not detec bushra. No labor atory evide nce of HIV infec tion. Not Available [facility] (Lab) [address] [place], [address], 12/27/2024 12:42:43 12/27/19 25 12/26/2024 RPR SCREE N, REFLE X TITER /CONF IRMAT ION RPR qualitative Nonrea ctive nonrea ctive Not Available [facility] (Lab) [address] [place], [address], 12/27/2024 12:42:43 01/24/20 25 01/23/2025 US, obste tric, follo w-up No observ ation record ed. [email or web address] [address], [place], [address], 01/30/2025 10:21:18 01/24/20 25 01/23/2025 US, obste tric, follo w-up No observ ation record ed. [facility] [place] [address], [place], [address], 01/23/2025 17:07:39 02/21/20 25 02/20/2025 US, obste tric, follo w-up No observ ation record ed. [facility] [place] [address], [place], [address], 02/20/2025 13:42:06 02/21/20 25 02/20/2025 US, obste tric, follo w-up No observ ation record ed. [email or web address] [address], [place], [address], 02/20/2025 12:16:23 Result Notes None recorded. Problems Name Problem SNOMED Code Status Onset Date Resolution Date Notes Provider Name and Address Organization Details Recorded Time SNOMED CT Concept Completed 201803/29/2021 Encntr for post splitter exam (general ) (routine ) w/o abn findings ;Recorde d Elsewher e: No Locat ion: [facility] S ource: EHR Will Call Order Clerk darrion: N Gerson ce ID: 0001 Phil lable Time: 10:15:00 AM Vandana Morris [place] - [facility] 10:34:[address] Concept Completed 201703/29/2021 Encntr for general adult medical exam w/o abnormal findings ;Recorde d Elsewher e: No Locat ion: [facility] S ource: EHR Will Call Order Clerk darrion: N Practi ce ID: 0001 Phil lable Time: 01:00:[address] [facility] 10:34:02 Educatio n Completed 201803/29/2021 Encounte r for other general counseli ng and advice on contrace ption;Re corded Elsewher e: No Locat ion: Brandon saenz [facility] S ource: EHR Will Call Order Clerk darrion: N Practi ce ID: 0001 Phil lable Time: 10:15:[address] [facility], [facility] 10:33:52 Finding of pattern of menstrua l cycle [id number] Completed 201703/29/2021 Irregula r interval s between menstrua l bleeding ;Recorde d Elsewher e: No Locat ion: [facility] S ource: EHR Will Call Order Clerk darrion: N Paulyti ce ID: 0001 Phil lable Time: 01:00:00 PM Vandana Morris [facility] 10:33:[address] Concept Completed 201503/29/2021 Encntr for routine child health exam w/o abnormal findings ;Recorde d Elsewher e: No Locat ion: [facility] S ource: EHR Will Call Order Clerk darrion: N Paulyti ce ID: 0001 Phil lable Time: 10:15:00 AM Vandana Morris [facility] 10:34:03 Irregula r intermen strual bleeding 18576878 Completed 201303/29/2021 Irregula r bleeding between periods; Recorded Elsewher e: No Locat ion: [facility] S ource: EHR Will Call Order Clerk darrion: N Practi ce ID: 0001 Phil lable Time: 04:00:[address] [facility], [facility] 10:33:57 Irritabi lity and anger 963295507 Completed 201703/29/2021 Irritabi lity;Rec orded Elsewher e: No Locat ion: [place] saenz [facility] S ource: EHR Will Call Order Clerk darrion: N Paulyti ce ID: 0001 Phil lable Time: 01:00:[address] [facility] 10:33:58 Pregnanc y test negative 286189641 Completed 201503/29/2021 Encounte r for pregnanc y test, result negative ;Recorde d Elsewher e: No Locat ion: [place] saenz [facility] S ource: EHR Will Call Order Clerk darrion: N Paulyti ce ID: 0001 Phil lable Time: 10:15:[address] [facility] 10:34:00 Family planning surveill ance Completed 201403/29/2021 Contrace ptive surveill ance;Rec orded Elsewher e: No Locat ion: [place] saenz [facility] S ource: EHR Will Call Order Clerk darrion: N Paulyti ce ID: 0001 Phil lable Time: 11:00:[address] [facility] 10:33:53 Amenorrh ea 88800723 Completed 201303/29/2021 Amenorrh ea;Recor ded Elsewher e: No Locat ion: [place] saenz [facility] S ource: EHR Will Call Order Clerk darrion: N Paulyti ce ID: 0001 Phil lable Time: 08:30:[address] [facility] 10:33:48 Acute vaginiti s 61254275 Completed 201903/29/2021 Vaginiti s;Record ed Elsewher e: No Locat ion: [place] saenz [facility] S ource: EHR Will Call Order Clerk darrion: N Paulyti ce ID: 0001 Phil lable Time: 08:30:00 AM Vandana Morris [facility] 10:33:47 Pregnanc y 39053039 Active 2023 Paola No null, [facility] 4 12:48:30 COVID-19 215065071 Active 2023 bASA daily, serial growth Yamilex Otto null, [facility] 4 10:08:36 COVID-19 374075812 Active 2023 bASA daily, serial growth Yamilex Otto null, [facility] 4 10:08:36 Short cervical length in pregnanc y 085756640 Active vaginal progeste florian , 2.3cM 21WK [facility] referral faxed 11/07 STL schedule d [facility] STL 11/13/24 Level II US and consult 0815 CL 2.38-2.9 2 average 2.4 Yamilex Otto null, [facility] 5 16:46:37 Short cervical length in pregnanc y 757041916 Active vaginal progeste florian , 2.3cM 21WK [facility] referral faxed 11/07 STL schedule d [facility] STL 11/13/24 Level II US and consult 0815 CL 2.38-2.9 2 average 2.4 Yamilex roe, [facility] 5 16:46:37 Finding of uterine contract ions 409666896 Active Darian Lozano MD [address], [place], [address], [facility] 5 13:02:51 Problem Notes None recorded. Procedures Surgical History Date Name Laterality Status Provider Name and Address Organization Details Recorded Time 04/22/20 Date of Last Pap Smear completed Gricelda Godwin [facility] 07/11/2023 19:34:21 dental consultation and report completed Lita Murillo [facility] 05/27/2020 12:14:29 Imaging Results Imaging Date Name Status LastModified by Organiz [facility] Details LastModified Time 01/23/2025 US, obstetric, follow-up completed [email or web address] [address], [place], [address], 01/30/2025 10:21:18 01/23/2025 US, obstetric, follow-up completed [email or web address] [place] [address], [place], [address], 01/23/2025 17:07:39 02/20/2025 US, obstetric, follow-up completed [email or web address] [place] [address], [place], [address], 02/20/2025 13:42:06 02/20/2025 US, obstetric, follow-up active [email or web address], [place], [address], 02/20/2025 12:16:23 Procedure Notes None recorded. Medical Equipment None [...] Prescrib ed Elsewher e: No Locat ion: [facility] odify By: jason wilson Enco unter DateTime : 11/14/19 08:30:00 AM Not Available Not Available Not Available Diflucan 150 mg tablet take 1 tablet by oral route once 11/14 completed Prescrib ed Elsewher e: No Locat ion: [facility] odify By: jason wilson Enco unter DateTime : 11/07/19 01:00:27 PM [...] Prescrib ed Elsewher e: No Locat ion: [facility] odify By: ubaldo nicolas DateTime : 12/29/19 09:52:26 AM Not Available Not Available Not Available Nortrel 35 (21) 1 mg-35 mcg tablet take 1 tablet by oral route every day for 28 days 03/30 completed Prescrib ed Elsewher e: No Locat ion: [facility] odify By: arnaldo patel DateTime : 03/03/20 11:35:18 AM Not Available Not Available Not Available minocycli ne 50 mg capsule take 2 capsule by oral route every 12 hours 11/14 completed Prescrib ed Elsewher e: No Locat ion: [facility] odify By: tatiana sky DateTime : 11/07/19 [...] Prescrib ed Elsewher e: No Locat ion: [facility] M odify By: tatiana sky DateTime : 07/03/20 [...] Prescrib ed Elsewher e: No Locat ion: [facility] M odify By: ebony mckeon DateTime : 05/15/20 14 08:30:00 AM Not Available Not Available Not Available Vitals Date Recorded Body height Body mass index (BMI) Body weight Systolic blood pressure Diastolic blood pressure Provider Name and Address Organization Details Last Updated DateTime 01/23/2025 163.83 cm 35.5 kg/m2 10617.4 g 113 mm[Hg] 76 mm[Hg] Paola No [place] - [facility] 12:39:07 Date Recorded Body weight Systolic blood pressure Diastolic blood pressure Provider Name and Address Organization Details Last Updated DateTime 02/06/2025 69576.7671 8 g 113 mm[Hg] 77 mm[Hg] Paola [facility] 02/06/2025 10:35:28 Date Recorded Body weight Systolic blood pressure Diastolic blood pressure Provider Name and Address Organization Details Last Updated DateTime 02/20/2025 05862.9519 2 g 123 mm[Hg] 84 mm[Hg] Paola [facility] 02/20/2025 12:43:27 Social History Question Answer Notes LastModified by Organizat ion Details LastModified Time Tobacco Smoking Status Never Smoker [email or web address] 05/27[facility]2020 12:14:16 What Is Your [...] Anxious, Or Unable To Sleep At Night)? [id number] Information not available 03/29/2021 Do You Use [...] Not available 2021 12:34:09 Mother Uterine prolapse [email or web address] Not available 2023 11:52:18 Mother Acute lymphoid [...] SNOMED-CT Code Diagnosis ICD10 Code Diagnosis Note [id number] Delfina Ball [facility] [address] [address] 05/27/2020 12:02:02 05/27/2020 13:48:51 test negative 835220852 Z32.02 Irregular periods 083413 07 N92.6 Patient is a 20yo white [...] and review of plan of care. Amenorrhea 68053854 N91. 2 No menses since 02/2020. Hx of irregular cycles q1-4mos. 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 UPT is neg Polycystic ovaries 23700 008 E28.2 Labs ordered to r/o PCOS/other anovulator y issues. [id number] Darian Lozano MD [place] [address] [address] 06/10/2020 12:34:42 06/10/2020 13:20:05 Oligomenorrhea 80748862 N91.5 [id number] Delfina Ball [facility] [address],[place] [address] 07/08/2020 10:42:33 07/08/2020 13:00:47 Oligomenorrhea 08918975 N91.5 Hx of irregular menses TUVS shows [...] 200mg sent. F/U x 3mos Female hirsutism 4135849 9 L68.0 High Testostero ne levels. Trial [...] this medication & possible relation to PCOS. [id number] Delfina Ball , [facility] [address] [address] 07/27/2020 12:19:24 07/27/2020 12:53:43 Gynecologic examination 08897275 Z01.419 Take Calcium with Vitamin D 1200mg [...] partner x 2.5yrs now. [place]x. [id number] Delfina Ball [facility] [address],[place] [address] 09/28/2020 11:16:27 09/28/2020 11:44:07 Secondary amenorrhea 204445417 N91.1 We agreed to continue this regimen. Will let us know if interested in monthly BC instead. Cystic acne 59308817 L70 .0 R/P labs & if any changes need to be made will call her. F/U in 6mos for r/p labs CMP R/P labs done today. Will stay on current dosage unless otherwise indicated. RTO x 6mos f/u. Time spent in visit is a total of 15 mins with at least 50% of visit consisting of counseling and review of plan of care. [id number] Delfina Ball [facility] [address],[place] [address] 03/29/2021 11:03:09 03/29/2021 11:28:38 Cystic acne 88391363 L70.0 Doing well on this therapy. Controllin [...] this patient s visit, including available hand iphone developer upon arrive, temperatur e check and being asked a series of screening questions. All staff wore face coverings during this encounter, as well as provided additional cleaning and sanitizing of all surfaces, including countertop s, pens, chairs, door handles, light switches, etc, prior to and following the patient s visit. [id number] Delfina Ball , [facility] [address],[place] [address] 08/11/2021 15:56:34 08/11/2021 16:38:53 Urinary tract infectious disease 28401690 N39.0 Urinary symptoms 7259466 08 R39.9 [id number] Delfina Ball [facility] [address],[place] [address] 04/22/2022 12:10:23 04/28/2022 00:10:37 Gynecologic examination 76461562 Z01.419 Take Calcium with Vitamin D 1200mg [...] na Routine Labs naMammo na Cystic acne 26395362 L70 .0 Doing well on this therapy. Controllin g acne & has regulated her menstrual cycles. Very happy with this result.RF sent x 1yrLabs updated [id number] Delfina Ball , [facility] [address] [address] 07/12/2023 11:58:26 07/12/2023 15:00:01 Gynecologic examination 44890149 Z01.419 Z11.3 Z11.8 Take Calcium with Vitamin [...] naDexa Screen naRoutine Labs pcp Cystic acne 39627354 L70 .0 Doing well on this therapy. Controllin g acne & has regulated her menstrual cycles. Very happy with this result.RF sent x 1yrLabs ordered Anxiety 64670118 F32.A Today Danna has expressed wanting assistance [...] in person.Dominic l sooner if any issues. [id number] Delfina Ball [facility] [address],[place] [address] 08/08/2023 10:33:27 08/08/2023 12:21:26 Anxiety 13156002 F32.A Patient is here today for a [...] counseling and review of plan of care. [id number] Delfina Ball [facility] [address],[place] [address] 10/11/2023 14:18:10 10/11/2023 15:08:19 Secondary amenorrhea 762142038 N91.1 Today we agreed to update lab [...] plan of care. Vitamin D deficiency 347 75539 E55.9 [id number] Delfina Ball [facility] [address] [place] [address] 01/24/2024 11:17:32 01/24/2024 15:46:42 Polycystic ovary syndrome 212703844 E28.2 Today we discussed trial of metformin [...] plan of care. Vitamin D deficiency 347 10672 E55.9 Hx of def Secondary dysmenorrhea 23829647 N94.5 [id number] Darian Lozano MD [place] [address] [place] [address] 01/25/2024 10:18:22 01/25/2024 11:01:31 Pain in pelvis 15159374 R10.2 [id number] Delfina Ball [facility] [address] [place] [address] 03/26/2024 11:30:31 03/26/2024 12:01:32 Polycystic ovary syndrome 977731858 E28.2 Using Metformin for Fertility purposes/H x [...] counseling and review of plan of care. [id number] Darian Lozano MD [place] [address],[place] [address] 07/24/2024 16:37:05 07/24/2024 17:32:40 Threatened miscarriage 45625197 O20.0 Z3A.01 [id number] Darian Lozano MD [place] [address],[place] [address] 08/22/2024 11:51:44 08/22/2024 12:18:51 [id number] Darian Lozano MD [place] [address],[place] [address] 08/22/2024 11:52:26 08/22/2024 14:31:32 Amenorrhea 38398916 N91.2 this patient is a 24-year-ol d [...] begin routine care at her next visit. [id number] Darian Lozano MD [place] [address] [address] 09/05/2024 11:51:26 09/05/2024 12:38:04 screening 808542176 Z36.82 Z3A.12 [id number] Darian Lozano MD [place] [address] [address] 09/05/2024 11:52:19 09/05/2024 15:23:37 Routine care 950776093 Z34.90 [id number] MD Juan Watts [address] [address] 10/03/2024 11:27:05 10/03/2024 12:40:43 Routine care 198912627 Z34.90 [id number] MD Juan Watts [address] [address] 10/31/2024 09:30:23 10/31/2024 10:51:33 screening for malformation 597997360 Z36.3 Z3A.20 [id number] MD Juan Watts [address] [address] 10/31/2024 09:31:34 10/31/2024 11:44:53 Routine care 300995879 Z34.90 [id number] MD Juan Watts [address] [address] 11/07/2024 11:57:35 11/07/2024 14:39:04 screening 049759830 Z36.2 O26.872 Z3A.21 [id number] MD Juan Watts [address] [address] 11/12/2024 13:29:17 11/12/2024 14:14:22 Short cervical length in 684510735 O26.872 Z3A.22 [id number] MD Juan Watts [address] [address] 11/28/2024 11:22:13 11/28/2024 12:13:16 Routine care 071869516 Z34.90 [id number] MD Juan Watts [address] [address] 12/12/2024 13:54:32 12/12/2024 14:51:38 Short cervical length in 330547101 O26.872 Z3A.26 [id number] MD Juan Watts [address] [address] 12/12/2024 13:55:48 12/12/2024 15:25:06 Routine care 903953217 Z34.90 [id number] MD Juan Watts [address] [address] 12/26/2024 11:25:01 12/26/2024 12:33:16 Routine care 576968514 Z34.90 [id number] MD Juan Watts [address] [address] 01/09/2025 12:27:31 01/09/2025 13:15:16 Routine care 477758087 Z34.90 [id number] MD Juan Watts [address] [address] 01/23/2025 11:30:55 01/23/2025 12:16:55 History of SARS-CoV-2 8101827542 64720529 Z86.16 Z3A.32 [id number] MD Juan Watts [address] [address] 01/23/2025 11:31:16 01/23/2025 13:10:57 Routine care 465757037 Z34.90 [id number] MD Juan Watts [address] [address] 02/06/2025 10:09:04 02/06/2025 11:09:16 Third trimester 96355423 Z34.03 [id number] MD Juan Watts [address] [address] 02/12/2025 16:29:58 02/12/2025 16:46:18 07364925 Z33.1 Pt here for BP check due to change in edema. BP 115/81. Pt's edema assessed. Minimal bilateral lower extremity edema noted at this time and no hand or face edema noted. Pt instructed on pre-eclamp bruna symptoms and instructed to continue to monitor. Pt verbalized understand ing and will call back if she experience s a change in symptoms. Meg Mena ier, RN [id number] Darian Lozano MD [place] [address] [address] 02/20/2025 11:29:07 02/20/2025 12:17:56 History of SARS-CoV-2 9696762631 35393643 Z86.16 Z3A.36 [id number] Darian Lozano MD [place] [address] [address] 02/20/2025 11:29:30 02/20/2025 16:57:40 Third trimester 31797730 Z34.03 Health Concerns Section Related Observation LastModified by Organization Detai ls LastModified Time None Recorded Concern Status LastModified by Organization Details LastModified Time None Recorded Advance Directives Directive None Recorded Payers Encounter Date Sequence Insurance Name Policy Number Policy Galeano Covered Member ID Galeano Member ID Guarantor Name 01/23/2025 1 [place] [id number] Mitul Damian Spivey [id number] Danna L Spievy 02/06/2025 1 [place] [id number] Mitul Damian Spivey [id number] Danna L Spivey 02/12/2025 1 [place] [id number] Mitul J Spivey [id number] Danna L Spivey 02/20/2025 1 [place] [id number] Mitul Damian Spivey [id number] Danna L Spivey 02/20/2025 1 [place] [id number] Mitul Damian Spivey [id number] Danna L Spivey OBGyn Episode Ob Episode Information Episode Created Date Number of Fetuses Patient Bloodtype Patient rh Status Prepregnancy Weight lbs Domestic Partner Domestic Partner Phone Father Name Outboard Technician Status 09/05/20 24 1 A Positive Jeremia h OPEN Fetus Data First Name Last Name Admitted to NICU Weight (g) Sex Living Outcome Pediatric Complications Fetus ID Race Codes Race Delivery Type [id number] Problems Problem Notes [facility] recommendation per A my recommendations pelvic rest with work restrictions no lifting over 10lbs, no strenuous activity, taking breaks every 2hrs to sit, limit work shift to 8 hours, light duty if possible Problem Name Start Date End Date Resolution Snomed Code Not e Finding of uterine contractions 759921824 COVID-19 09/18/2024 315902893 Harsha womack y, serial growth Short cervical length in 945333973 vaginal progest erone , 2.3cM 21WK [facility] referral faxed 11/07 STLscheduled [facility] STL 11/13/24 Level II US and [...] Gestation 0 [email or web address] 09/05/2024 03/17/20 25 0 Pre-chucky Flowsheet Flowsheet Date 09/05/2024 Shipley Score Blood Edema Fundus Height Fundus Units Glucose Ketones Leukocytes Nitrite Labor Signs Protein Cervic Dilation Cervic Effacement Cervic Station 13 cm Type Weight in lbs Pre/Post Dialysis Refused Weight 181.867513970163 BP Diastolic BP Location Tested BP Systolic [...] Type Weight in lbs Pre/Post Dialysis Refused 187.253641333341 BP Diastolic BP Location Tested BP Systolic [...] Type Weight in lbs Pre/Post Dialysis Refused 192.971637812492 BP Diastolic BP Location Tested BP Systolic [...] Type Weight in lbs Pre/Post Dialysis Refused 199.209943596804 BP Diastolic BP Location Tested BP Systolic [...] Type Weight in lbs Pre/Post Dialysis Refused 201.892276308768 BP Diastolic BP Location Tested BP Systolic [...] Type Weight in lbs Pre/Post Dialysis Refused 205.372290331871 BP Diastolic BP Location Tested BP Systolic [...] Type Weight in lbs Pre/Post Dialysis Refused 206.872542253734 BP Diastolic BP Location Tested BP Systolic [...] Weight in lbs Pre/Post Dialysis Refused Weight 210.593277554826 BP Diastolic BP Location Tested BP Systolic [...] Type Weight in lbs Pre/Post Dialysis Refused 214.346607629494 BP Diastolic BP Location Tested BP Systolic [...] Type Weight in lbs Pre/Post Dialysis Refused 216.567885912548 BP Diastolic BP Location Tested BP Systolic [...]
--- OUTSIDE RECORDS SUMMARY | 2025-02-20 19:40 | XMS_ITS | Clinical Summary ---
Author Organization [facility] reportbrain Address [address] [place] [address] Care Team Providers Care Payroll Officer Name Role Phone Unavailable Primary Care Provider Unavailabl e Source Comments [facility],non-owned Affiliates and Associated Physician Practices is amultiple site organization consisting of ambulatory clinics and hospital sitesin [place], [place], [place] and [place]. This disclosure is being madepursuant to the Care Everywhere program and may not contain all information available regarding this patient. Last updated 18.[employer] [employer] [facility] Allergies No known active allergies Medications * Be aware that medications may not be up to date on this document. Alwaysverify current medications with the patient. 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 Not on file Not on file Not on file Last Filed Vital Signs Vital Sign Reading Time Taken Comments Blood Pressure 104/70 11/13/2024 8:57 AM ANIMAL TRAINER Pulse 79 12/21/2017 10:01 AM ANIMAL TRAINER Temperature 37.1 C (98.8 F) 12/21/2017 10:01 AM ANIMAL TRAINER Respiratory Rate 16 12/21/2017 10:01 AM ANIMAL TRAINER Oxygen Saturation 99% 12/21/2017 10:01 AM ANIMAL TRAINER Inhaled Oxygen Concentration - - Weight 88 kg (194 lb) 11/13/2024 8:57 AM ANIMAL TRAINER Height 163.8 cm (5' 4.5) 11/13/2024 8:57 AM ANIMAL TRAINER Body Mass Index 32.79 11/13/2024 8:57 AM ANIMAL TRAINER Plan of Treatment Health Maintenance Due Date Last Done Comments PAP SMEAR 1998 HEPATITIS C SCREENING 12/30/2015 DTAP/TDAP/TD VACCINES (1 - Tdap) 2017 HEPATITIS B VACCINE (1 of 3 - 19+ 3-dose series) 2017 COVID-19 VACCINE (3 - 2023-2 5 season) 2024 11/16/2021, 10/26/2021 OB-ONE HOUR GLUCOSE 12/09/2024 OB-TDAP CURRENT 12/16/2024 OB-RHOGAM INJECTION 12/23/2024 OB-GROUP B STREP SCREEN 02/10/2025 INFLUENZA VACCINE (Season Ended) 2025 ZOSTER VACCINE (1 of 2) 01/04/2048 HIV [...] over 60 yrs (No Doses Required) Completed Insurance [facility] Address: [facility] [id number] [place] [address]
--- OUTSIDE RECORDS SUMMARY | 2025-02-20 19:40 | XMS_ITS | Continuity of Care Document ---
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 Discussed [...] recorde d. Surgeries None recorde d. Imaging None recorde d. Medication Orders None recorde d. Patient TargetsNo targets recorded. Patient InstructionsNo instructions recorded. Reason for Referral None Reported. Results Created Date Observation Date Name Description Value Unit Range Abnormal Flag Note LastModifiedBy Organization Detail LastModifiedTime 09/05/20 24 09/05/2024 US, obste tric, nucha l trans lucen cy No observ ation record ed. [email or web address] [place] [address], [place], [address], 09/05/2024 13:54:10 09/05/20 24 09/05/2024 US, obste tric, follo w-up No observ ation record ed. [email or web address] [address], [place], [address], 09/05/2024 14:56:43 10/31/19 25 10/31/2024 US, obste tric, 2nd or 3rd trime ster No observ ation record ed. [email or web address] [place] [address], [place], [address], 10/31/2024 12:23:53 10/31/19 25 10/31/2024 US, obste tric, trans vagin al No observ ation record ed. [email or web address] [facility] [address], [place], [address], 10/31/2024 12:24:08 10/31/19 25 10/31/2024 US, obste tric, follo w-up No observ ation record ed. [email or web address] [address] [facility], [place], [address], 11/07/2024 10:08:47 11/07/19 25 11/07/2024 US, obste tric, trans vagin al No observ ation record ed. [facility] [address], [place], [address], 11/07/2024 18:31:11 11/07/19 25 11/07/2024 US, obste tric, limit ed No observ ation record ed. [facility] [address], [place], [address], 11/07/2024 18:31:21 11/07/19 25 11/07/2024 US, obste tric, trans vagin al No observ ation record ed. [email or web address] [address], [place], [address], 11/07/2024 21:56:16 11/12/19 25 11/12/2024 US, obste tric, trans vagin al No observ ation record ed. [email or web address] [address], [place], [address], 11/12/2024 17:42:46 11/12/19 25 11/12/2024 US, obste tric, follo w-up No observ ation record ed. [email or web address] [address], [place], [address], 11/13/2024 09:07:22 11/13/19 25 11/13/2024 US, obste tric, follo w-up No observ ation record ed. [email or web address] [facility] [address] [address], [place], [address], 11/25/2024 23:07:53 11/20/19 25 11/20/2024 US, obste tric, follo w-up No observ ation record ed. [facility] [address], [place], [address], 11/26/2024 18:48:01 11/22/19 25 11/20/2024 US, obste tric, follo w-up No observ ation record ed. [email or web address] [facility] [address] [facility], [place], [address], 12/04/2024 17:16:19 12/12/19 25 12/12/2024 US, obste tric, follo w-up No observ ation record ed. [email or web address] [place] [address], [place], [address], 12/12/2024 18:15:40 12/12/19 25 12/12/2024 US, obste tric, trans vagin al No observ ation record ed. [email or web address] [place] [address], [place], [address], 12/12/2024 18:13:48 12/12/19 25 12/12/2024 US, obste tric, follo w-up No observ ation record ed. [email or web address] [address], [place], [address], 12/12/2024 15:24:28 01/24/20 25 01/23/2025 US, obste tric, follo w-up No observ ation record ed. [email or web address] [address], [place], [address], 01/30/2025 10:21:18 01/24/20 25 01/23/2025 US, obste tric, follo w-up No observ ation record ed. [email or web address] [place] [address], [place], [address], 01/23/2025 17:07:39 02/21/20 25 02/20/2025 US, obste tric, follo w-up No observ ation record ed. [email or web address] [place] [address], [place], [address], 02/20/2025 13:42:06 02/21/20 25 02/20/2025 US, obste tric, follo w-up No observ ation record ed. [email or web address] [address], [place], [address], 02/20/2025 12:16:23 Result Notes None recorded. 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 1 10:34:[address] Concept Completed 201703/29/2021 Encntr for general adult medical exam w/o abnormal findings ;Recorde d Elsewher e: No Locat ion: Vestalilia saenz [facility] S ource: EHR Machine Cloth Examiner darrion: N Practi ce ID: 0001 Phil lable Time: 01:00:00 PM Vandana [facility] 1 10:34:02 Educatio n Completed 201803/29/2021 Encounte r for other general counseli ng and advice on contrace ption;Re corded Elsewher e: No Locat ion: Maryvill e [facility] S ource: EHR Machine Cloth Examiner darrion: N Practi ce ID: 0001 Phil lable Time: 10:15:00 AM Vandana [facility] 10:33:52 Finding of pattern of menstrua l cycle 950238738 Completed 201703/29/2021 Irregula r interval s between menstrua l bleeding ;Recorde d Elsewher e: No Locat ion: Vestajesus albertoll dany [facility] S ource: EHR Machine Cloth Examiner darrion: N Practi ce ID: 0001 Phil lable Time: 01:00:00 PM Vandana Morris [facility] 10:33:[address] Concept Completed 201503/29/2021 Encntr for routine child health exam w/o abnormal findings ;Recorde d Elsewher e: No Locat ion: Rickie dany [facility] S ource: EHR Machine Cloth Examiner darrion: N Practi ce ID: 0001 Phil lable Time: 10:15:00 AM Vandana [facility] 10:34:03 Irregula r intermen strual bleeding 77236866 Completed 201303/29/2021 Irregula r bleeding between periods; Recorded Elsewher e: No Locat ion: Brandon e [facility] S ource: EHR Machine Cloth Examiner darrion: N Practi ce ID: 0001 Phil lable Time: 04:00:00 PM Vandana roe [facility] 10:33:57 Irritabi lity and anger 392222201 Completed 201703/29/2021 Irritabi lity;Rec orded Elsewher e: No Locat ion: Brandon dany [facility] S ource: EHR Machine Cloth Examiner darrion: N Paulyti ce ID: 0001 Phil lable Time: 01:00:00 PM Vandana Morris [facility] 10:33:58 Pregnanc y test negative 236940679 Completed 201503/29/2021 Encounte r for pregnanc y test, result negative ;Recorde d Elsewher e: No Locat ion: Brandon dany [facility] S ource: EHR Machine Cloth Examiner darrion: N Paulyti ce ID: 0001 Phil lable Time: 10:15:00 AM Vandana Morris [facility] 10:34:00 Family planning surveill ance Completed 201403/29/2021 Contrace ptive surveill ance;Rec orded Elsewher e: No Locat ion: Brandon dany [facility] Paulyti ce ID: 0001 Phil lable Time: 11:00:00 AM Vandana Morris [facility] 10:33:53 Amenorrh ea [id number] Completed 201303/29/2021 Amenorrh ea;Recor ded Elsewher e: No Locat ion: Brandon dany [facility] S ource: EHR Machine Cloth Examiner darrion: N Paulyti ce ID: 0001 Phil lable Time: 08:30:00 AM Vandana Morris [facility] 10:33:48 Acute vaginiti s 01770051 Completed 201903/29/2021 Vaginiti s;Record ed Elsewher e: No Locat ion: Brandon dany [facility] S ource: EHR Machine Cloth Examiner darrion: N Practi ce ID: 0001 Phil lable Time: 08:30:00 AM Vandana Morris null, [facility] 1 10:33:47 Pregnanc y 16969475 Active 2023 Paola No null, [facility] 4 12:48:30 COVID-19 567966338 Active 2023 bASA daily, serial growth Yamilex Otto null, [facility] 4 10:08:36 COVID-19 953030207 Active 2023 bASA daily, serial growth Yamilex Otto null, [facility] 4 10:08:36 Short cervical length in pregnanc y 458598025 Active vaginal progeste florian , 2.3cM 21WK [facility] referral faxed 11/07 STL schedule d [facility] STL 11/13/24 Level II US and consult 0815 CL 2.38-2.9 2 average 2.4 Yamilex Otto null, [facility] 5 16:46:37 Short cervical length in pregnanc y 698356070 Active vaginal progeste florian , 2.3cM 21WK [facility] referral faxed 11/07 STL schedule d [facility] STL 11/13/24 Level II US and consult 0815 CL 2.38-2.9 2 average 2.4 Yamilex Otto null, [facility] 5 16:46:37 Finding of uterine contract ions 523738926 Active Darian Lozano MD [address], [place], [address], [place] [facility] 5 13:02:51 Problem Notes None recorded. Procedures Surgical History Date Name Laterality Status Provider Name and Address Organization Details Recorded Time 04/22/20 Date of Last Pap Smear completed Gricelda Godwin [facility] 07/11/2023 19:34:21 dental consultation and report completed Lita Chidi [facility] 05/27/2020 12:14:29 Imaging Results None recorded. Procedure Notes None recorded. Medical Equipment None [...] Prescrib ed Elsewher e: No Locat ion: [facility] odify By: jason Castelano unter DateTime : 11/14/19 08:30:00 AM Not Available Not Available Not Available Diflucan 150 mg tablet take 1 tablet by oral route once 11/14 completed Prescrib ed Elsewher e: No Locat ion: [facility] odify By: jason Loo unter DateTime : 11/07/19 01:00:27 PM Not [...] Prescrib ed Elsewher e: No Locat ion: [facility] odify By: ubaldo nicolas DateTime : 12/29/19 09:52:26 AM Not Available Not Available Not Available Nortrel 1/35 (21) 1 mg-35 mcg tablet take 1 tablet by oral route every day for 28 days 03/30 completed Prescrib ed Elsewher e: No Locat ion: [facility] odify By: arnaldo patel DateTime : 03/03/20 11:35:18 AM Not Available Not Available Not Available minocycli ne 50 mg capsule take 2 capsule by oral route every 12 hours 11/14 completed Prescrib ed Elsewher e: No Locat ion: [facility] odify By: tatiana pierceunter DateTime : 11/07/19 01:00:27 PM Not Available [...] ed Elsewher e: No Locat ion: [facility] odify By: tatiana pierceuntlinda DateTime : 07/03/20 10:15:00 AM Not Available [...] Prescrib ed Elsewher e: No Locat ion: [facility] odify By: ebony Gutierrez er DateTime : 05/15/20 08:30:00 AM Not Available Not Available Not Available Vitals Date Recorded Body weight Systolic blood pressure Diastolic blood pressure Provider Name and Address Organization Details Last Updated DateTime 02/20/2025 47767.9519 2 g 123 mm[Hg] 84 mm[Hg] Paola No [facility] 02/20/2025 12:43:27 Social History Question Answer Notes LastModified by Organizat ion Details LastModified Time Tobacco Smoking Status Never Smoker Lita roe, [facility] 05/27/2020 12:14:16 What Is [...] Anxious, Or Unable To Sleep At Night)? [id number] Information not available 03/29/2021 Do You Use [...] Not available 2021 12:34:09 Mother Uterine prolapse [email or web address] Not available 2023 11:52:18 Mother Acute lymphoid [...] SNOMED-CT Code Diagnosis ICD10 Code Diagnosis Note [id number] Darian Lozano MD [facility] [address] [address] 01/23/2025 11:30:55 01/23/2025 12:16:55 History of SARS-CoV-2 7927591034 53305846 Z86.16 Z3A.32 [id number] Darian Lozano MD [facility] [address] [address] 01/23/2025 11:31:16 01/23/2025 13:10:57 Routine care 166233771 Z34.90 [id number] Darian Lozano MD [facility] [address] [address] 02/06/2025 10:09:04 02/06/2025 11:09:16 Third trimester 09783744 Z34.03 [id number] Darian Lozano MD [facility] [address] [address] 02/12/2025 16:29:58 02/12/2025 16:46:18 62554341 Z33.1 Pt here for BP check due to change in edema. BP 115/81. Pt's edema assessed. Minimal bilateral lower extremity edema noted at this time and no hand or face edema noted. Pt instructed on pre-eclamp bruna symptoms and instructed to continue to monitor. Pt verbalized understand ing and will call back if she experience s a change in symptoms. Meg Mena iemaria isabel, [place] [id number] Darian Lozano MD [facility] [address] [address] 02/20/2025 11:29:07 02/20/2025 12:17:56 History of SARS-CoV-2 5340064783 83697420 Z86.16 Z3A.36 [id number] Darian Lozano MD [facility] [address] [address] 02/20/2025 11:29:30 02/20/2025 16:57:40 Third trimester 70178284 Z34.03 Health Concerns Section Related Observation LastModified by Organization Detai ls LastModified Time None Recorded Concern Status LastModified by Organization Details LastModified Time None Recorded Payers Encounter Date Sequence Insurance Name Policy Number Policy Galeano Covered Member ID Galeano Member ID Guarantor Name 02/20/2025 1 [place] [id number] Mitul Spivey [id number] Danna Spivey OBGyn Episode Ob Episode Information Episode Created Date Number of Fetuses Patient Bloodtype Patient rh Status Prepregnancy Weight lbs Domestic Partner Domestic Partner Phone Father Name Resident Care Provider Status 09/05/20 24 1 A Positive Jeremia h OPEN Fetus Data First Name Last Name Admitted to NICU Weight (g) Sex Living Outcome Pediatric Complications Fetus ID Race Codes Race Delivery Type [id number] Problems Problem Notes [facility] recommendation per A my recommendations pelvic rest with work restrictions no lifting over 10lbs, no strenuous activity, taking breaks every 2hrs to sit, limit work shift to 8 hours, light duty if possible Problem Name Start Date End Date Resolution Snomed Code Not e Finding of uterine contractions 895781458 COVID-19 09/18/2024 [id number] Harsha womack y, serial growth Short cervical length in 658023073 vaginal progest erone , 2.3cM [facility]WK [facility] [...] Weight in lbs Pre/Post Dialysis Refused Weight 181.532869527137 BP Diastolic BP Location Tested BP Systolic [...] Type Weight in lbs Pre/Post Dialysis Refused 187.653040357684 BP Diastolic BP Location Tested BP Systolic [...] Type Weight in lbs Pre/Post Dialysis Refused 192.000451877628 BP Diastolic BP Location Tested BP Systolic [...] Type Weight in lbs Pre/Post Dialysis Refused 199.977431068033 BP Diastolic BP Location Tested BP Systolic [...] Type Weight in lbs Pre/Post Dialysis Refused 201.940459937174 BP Diastolic BP Location Tested BP Systolic [...] Type Weight in lbs Pre/Post Dialysis Refused 205.870939793191 BP Diastolic BP Location Tested BP Systolic [...] Type Weight in lbs Pre/Post Dialysis Refused 206.167053833515 BP Diastolic BP Location Tested BP Systolic [...] Weight in lbs Pre/Post Dialysis Refused Weight 210.219026911509 BP Diastolic BP Location Tested BP Systolic [...] Type Weight in lbs Pre/Post Dialysis Refused 214.327048057376 BP Diastolic BP Location Tested BP Systolic [...] Type Weight in lbs Pre/Post Dialysis Refused 216.342434381343 BP Diastolic BP Location Tested BP Systolic [...]
--- OUTSIDE RECORDS SUMMARY | 2025-02-20 19:41 | XMS_ITS | Data Portability ---
Author Organization [facility] [employer] , [facility] Address [address] [place] [address] Assessment No assessment recorded. Plan of Treatment Reminders Order Date Submit Date Provider Last Modified By Organization Details Last Modified Time Details Appointments None recorded. Lab test, urine 2023 024 bnotz[facility], [address] [place], [address], 4 12:10:14 test, urine 2023 024 [facility], [address] [facility], [place], [address], 4 15:42:14 mycoplasma + ureaplasma DNA, unspecified specimen 2023 024 [employer] [facility], [address] [facility] [address], [place], [address], 4 18:31:39 testosteron e, free, serum 2023 024 [employer] [facility], [address] [facility], [place], [address], 4 19:09:01 lh + FSH, serum 2023 024 [employer] [facility], [address] [place], [address], 4 11:44:56 estradiol, serum 2023 [employer] [facility], [address] [facility], [place], [address], 19:09:00 hemoglobin A1c, QN, blood 2023 [facility] [employer] [facility], [address] [place], [address], 10:58:20 prolactin, serum 2023 [facility] [employer] [facility], [address] [place], [address], 11:44:58 TSH + free T4, serum 2023 [employer] [facility], [address] [place], [address], 11:50:12 Referral None recorded. Procedures None recorded. Surgeries None recorded. Imaging US, transvagina l 2023 MIKE Not available 11:44:22 Medication Orders None recorded. Patient TargetsNo targets recorded. Patient Instructions Encounter Date Encounter Id Patient Instructions Last Modified By Organization Details Last Modified Time 06/26/2024 [id number] infertility education [employer] Not available 06/26/2024 13:14:08 08/06/2024 [id number] [facility] OB Booklet bnotzke Not available 08/06/2024 [...] is recom ani d (orde r code 41212 ). Pleshu e note: patie nts being [...] s. [facility] order code 72730 -Estr adiol , Ultra sensi tive LC/MS /MS demon strat es negli gible cross react ivity with fulve stran t. Not Available [employer] [facility] [address] [place], [address], 07/01/2024 19:09:00 07/01/2007/01/2024 TESTO STERO NE, FREE testosterone , free 3.6 pg/mL 0.2-5. 0 MDF med fusio n [address] [facility] [address] [facility] [address] [phone] Brii Mae MD, PhD NO COLLE CTION DATE RECEI FRANCOISE. WE HAVE USED THE DATE THE SPECI MEN WAS RECEI FRANCOISE BY THIS LABOR ATORY THE COLLE CTION DATE. IF THIS IS INCOR RECT, PLEAS E CONTA CT CLIEN T SERVI JANY. PHONE NUMBE R: [phone] Not Available [employer] [facility] [address] [place], [address], 07/01/2024 19:09:00 06/26/20 24 07/04/2024 MYCOP LASMA /UREA PLASM A PANEL sureswab(R), mycoplasma hominis, real-time PCR NOT DETECT ED normal REFEE RENCE RANGE : NOT DETEC MINDI Metho dolog y: Real- Time PCR This test was devel oped and its mahsa tical perfo rmanc e amor cteri stics have been deter mined by [employer]. It has not been clear ed or appro francoise by FDA. This assay has been valid ated pursu ant to the CLIA regul ation s and is used for clini harsh purpo ses. Not Available [facility] [address] [place], [address], 07/04/2024 18:31:39 06/26/20 24 07/04/2024 MYCOP LASMA /UREA PLASM A PANEL mycoplasma genitalium, rrna,tma NOT DETECT ED normal REFER ENCE RANGE : NOT DETEC MINDI Not Available [address] [place], [address], 07/04/2024 18:31:39 06/26/20 24 07/04/2024 MYCOP LASMA /UREA PLASM A PANEL U. parvum DNA NOT DETECT ED normal Not Available [facility] [address], [address], 07/04/2024 18:31:39 06/26/20 24 07/04/2024 MYCOP LASMA /UREA PLASM A PANEL U. urealyticum DNA NOT DETECT ED normal REFER ENCE RANGE : NOT DETEC MINDI Metho dolog y: Real- Time PCR This test was devel oped and its mahsa tical perfo rmanc e amor cteri stics have been deter mined by [employer]. It has not been clear ed or appro francoise by FDA. This assay has been valid ated pursu ant to the CLIA regul ation s and is used for clini harsh purpo ses. Not Available [facility] [place] [address] [place], [address], 07/04/2024 18:31:39 06/27/20 24 06/28/2024 HEMOG LOBIN [...] absen ce of diabe adonis Not Available [employer] [address] [place], [address], 06/28/2024 10:58:20 06/27/20 24 06/28/2024 FSH AND [...] : 23.0- 116.6 mIU/m L Not [place], [address], 06/28/2024 11:44:56 06/27/20 24 06/28/2024 FSH AND [...] kofi: 0.7-5 .6 mIU/m L Not Available [employer] [address] [place], [address], 06/28/2024 11:44:56 06/27/2006/28/2024 PROLA CTIN prolactin 10.0 NG/mL Refer ence Range s Femal e aged 18-Ad ult Nonpr egnan t: 2.8-2 9.2 ng/mL Pregn ant: 9.7-2 08.5 ng/mL Post- menop ausal : 1.8-2 0.3 ng/mL Pregn richard, lacta tion, and the admin istra tion of oral contr acept kofi can incre ase prola ctin bear ntrat ions. Not Available [address], [address], 06/28/2024 11:44:58 06/27/20 24 06/28/2024 TSH W/ T4, FREE TSH 2.21 mIU/L 0.55 - 4.78 normal Refer ence Range Femal e aged 18-Ad ult: 0.55- 4.78 Pregn richard Refer ence Range s First Trime ster 0.26- 2.66 Secon d Trime ster 0.55- 2.73 Third Trime ster 0.43- 2.91 Not Available [facility], [address], 06/28/2024 11:50:12 06/27/20 24 06/28/2024 TSH W/ T4, FREE T4, free 1.14 NG/dL 0.89 - 1.76 normal Not Available [address], [address], 06/28/2024 11:50:12 08/06/20 24 08/06/2024 pregn richard test, urine HCG positi ve Not Available [facility] [address] [place], [address], 08/06/2024 09:17:01 08/07/20 24 08/06/2024 US, trans vagin al No observ ation record ed. bnotzke [facility] [address], [place], [address], 08/07/2024 12:27:15 Result Notes None recorded. Procedures Surgical History Date Name Laterality Status Provider Name and Address Organization Details Recorded Time 05/27/2023 Date of Last Pap Smear completed [facility] [employer] 06/26/2024 12:13:38 Imaging Results Imaging Date Name Status LastModified by Organization Details LastModified Time 08/06/2024 US, transvaginal completed bnotzke An[facility] [address], [place], [address], 08/07/2024 12:27:15 Procedure Notes None recorded. Medical [...] Updated DateTime 4 172.72 cm 27.5 kg/m2 63172.2 2 g 97 [degF] 110 mm[Hg] 60 mm[Hg] [facility] [employer] 12:22:55 Date Recorded Body height Body mass index (BMI) Body weight Body temperature Systolic blood pressure Diastolic blood pressure Provider Name and Address Organization Details Last Updated DateTime 4 172.72 cm 27.9 kg/m2 35836.2 8 g 97.6 [degF] 118 mm[Hg] 74 mm[Hg] Janki Cruz [employer] [facility] 11:33:11 Social History Question Answer Notes LastModified by Organizat ion Details LastModified Time Tobacco Smoking Status Never Smoker Alena Kyle null, [employer] 06/26/2024 12:14:15 What Is Your Level [...] Not available 2023 12:13:04 Maternal Grandfather Malignant neoplasm of lung Not available 2023 12:13:04 Medical [...] SNOMED-CT Code Diagnosis ICD10 Code Diagnosis Note [id number] Elvia cordova CNM [facility] [address] [place] [address] 06/26/2024 11:57:51 07/04/2024 16:17:12 Infertility study 57794429 Z31.41 Desires reviewed tracking cycle and comparing with Ovulation kits Reproducti ve care management 665006147 Z31.81 Polycystic ovary syndrome 562498281 E28.2 Recurrent bacterial infection 746850298 A49.9 [id number] KAREN BURKS [facility] [address] [place] [address] 08/06/2024 11:23:13 08/06/2024 13:28:59 test positive 568999633 Z32.01 Pt presents today for a confirmati [...] vitamins daily---To xoplasmosi s precaution s reviewed-- -[facility] Guide; What to expect on your maternity journey-- -S/S of SAB reviewed and when to [...] ID Guarantor Name 06/26/2024 1 [place] [id number] Mitul Spivey [id number] Danna Elizabeth Allyssa 08/06/2024 1 [place] [id number] Mitul J Allyssa [id number] Danna Elizabeth Allyssa Notes Date Note Type Note Provider Name and Address Organization Details Recorded Time 4 text/html InfertilityReported bypatient.Duration:tryin g to conceive for >1 year Context:menstrual cycles regular/monthly; menses every 28 days; documented ovulation: ; regular intercourse Danna is here for infertilitypatient state she has been trying for years to conceivepatient state she has been dx PCOS Elvia Romero, [place] [address] [facility], [place], [address], [employer] [facility] 07/03/2024 10:43:04 4 text/html Danna is here for positive test. She states she still is taking the metformin and has been taking . She does have nausea in the morning and night sometimes. She has no questions for me. ELENA BURKS- [address] [facility], [place], [address], [facility] [employer] [facility] 08/06/2024 12:10:34 OBGyn Episode No OBEpisode recorded.
--- NOTE | 2025-02-20 20:11 | OBADM ---
This patient, Danna Spivey, admitted to the OB room OB Post 117 for observation. Patient/family oriented to hospital policies and general routines including ID bracelet, bed and alarms, visiting hours, pain management, procedures, bathroom and other care routines, personal items, smoking policy, room service/diet, and visiting hours. Patient/Family are encouraged to report perceived risks to care and to ask questions if they do not understand what they are told or what they should do.
--- NOTE | 2025-02-20 21:01 | PC.NURSE ---
Called Dr. Lozano, update on pt, fall at work 1914, tracing, no contractions and no vaginal bleeding, and blood pressure. Orders received to monitor pt for four hours and discharge if reactive tracing with instructions to keep next scheduled appointment and when to return to the unit.
--- NOTE | 2025-02-20 23:31 | PC.NURSE ---
Pt discharged with instructions to keep next scheduled appointment and when to return to the unit, pt verbalizes understanding.
--- NOTE | 2025-03-21 08:12 | PM.OBTRLD ---
OB - Triage/Final Diagnosis Visit Information Comments/Additional reasons for admission: I have assessed the risk for this patient, Danna Spivey, and determined that she would benefit from observation care. Final Diagnosis (1) Fall: Code(s): W19.XXXA - Unspecified fall, initial encounter Status: Acute
== END 2025-02-20 23:31 | disposition home or self-care (01) ==
PROVIDERS: Admitting Provider Obstetrics & Gynecology; PCP Nurse Practitioner Family; Visit Provider Obstetrics & Gynecology
DX: O26.893 Other specified pregnancy related conditions, third trimester (principal); W19.XXXA Unspecified fall, initial encounter; Z3A.36 36 weeks gestation of pregnancy
CPT/HCPCS: G0378; G0379

== ENCOUNTER 2025-03-11 10:18 | Inpatient (IN) | payer BC, SELFPAY ==
[2025-03-11] VITALS (84 sets, daily range): BP systolic 74–152; BP diastolic 40–114; PULSE 53–157; TEMP 36.6–36.8; O2SAT 87–100; BMI 35.6
--- OUTSIDE RECORDS SUMMARY | 2025-03-11 10:34 | XMS_ITS | Data Portability ---
Author Organization [facility] [employer] , [facility] Address [address] [place] [address] Assessment No assessment recorded. Plan of Treatment Reminders Order Date Submit Date Provider Last Modified By Organization Details Last Modified Time Details Appointments None recorded. Lab test, urine 2023 024 bnotzke [facility], [address] [place], [address], 4 12:10:14 test, urine 2023 024 [facility], [address] [facility], [place], [address], 4 15:42:14 mycoplasma + ureaplasma DNA, unspecified specimen 2023 024 [facility], [address] [facility] [address], [place], [address], 4 18:31:39 testosteron e, free, serum 2023 024 [facility], [address] [facility], [place], [address], 4 19:09:01 lh + FSH, serum 2023 024 [employer] [facility], [address] [place], [address], 4 11:44:56 estradiol, serum 2023 [facility], [address] [facility], [place], [address], 19:09:00 hemoglobin A1c, QN, blood 2023 [facility] [facility], [address] [place], [address], 10:58:20 prolactin, serum 2023 [facility], [address] [place], [address], 11:44:58 TSH + free T4, serum 2023 [employer], [address] [place], [address], 11:50:12 Referral None recorded. Procedures None recorded. Surgeries None recorded. Imaging US, transvagina l 2023 MIKE Not available 11:44:22 Medication Orders None recorded. Patient TargetsNo targets recorded. Patient Instructions Encounter Date Encounter Id Patient Instructions Last Modified By Organization Details Last Modified Time 06/26/2024 [id number] infertility education [employer] Not available 06/26/2024 13:14:08 08/06/2024 [id number] [facility] OB Booklet bnotzke Not available 08/06/2024 12:10:12 [...] is recom ani d (orde r code 02406 ). Pleshu e note: patie nts being [...] s. [facility] order code 50145 -Estr adiol , Ultra sensi tive LC/MS /MS demon strat es negli gible cross react ivity with fulve stran t. Not Available [employer] [facility] [address] [place], [address], 07/01/2024 19:09:00 07/01/2007/01/2024 TESTO STERO NE, FREE testosterone , free 3.6 pg/mL 0.2-5. 0 MDF med fusio n [address] [facility] [address] [facility] [address] [phone] Brii Mae MD, PhD NO COLLE CTION DATE RECEI FRANCOISE. WE HAVE USED THE DATE THE SPECI MEN WAS RECEI FRANCOISE BY THIS LABOR ATORY THE COLLE CTION DATE. IF THIS IS INCOR RECT, PLEAS E CONTA CT CLIEN T SERVI JANY. PHONE NUMBE R: [phone] Not Available [employer] [facility] [address] [place], [address], 07/01/2024 19:09:00 06/26/20 24 07/04/2024 MYCOP LASMA /UREA PLASM A PANEL sureswab(R), mycoplasma hominis, real-time PCR NOT DETECT ED normal REFEE RENCE RANGE : NOT DETEC MINDI Metho dolog y: Real- Time PCR This test was devel oped and its mahsa tical perfo rmanc e amor cteri stics have been deter mined by [employer] ostic s. It has not been clear ed or appro francoise by FDA. This assay has been valid ated pursu ant to the CLIA regul ation s and is used for clini harsh purpo ses. Not Available [facility] [address] [place], [address], 07/04/2024 18:31:39 06/26/20 24 07/04/2024 MYCOP LASMA /UREA PLASM A PANEL mycoplasma genitalium, rrna,tma NOT DETECT ED normal REFER ENCE RANGE : NOT DETEC MINDI Not Available [address] [place], [address], 07/04/2024 18:31:39 06/26/20 24 07/04/2024 MYCOP LASMA /UREA PLASM A PANEL U. parvum DNA NOT DETECT ED normal Not Available [facility] [address], [address], 07/04/2024 18:31:39 06/26/20 24 07/04/2024 MYCOP LASMA /UREA PLASM A PANEL U. urealyticum DNA NOT DETECT ED normal REFER ENCE RANGE : NOT DETEC MINDI Metho dolog y: Real- Time PCR This test was devel oped and its mahsa tical perfo rmanc e amor cteri stics have been deter mined by [employer] ostic s. It has not been clear ed or appro francoise by FDA. This assay has been valid ated pursu ant to the CLIA regul ation s and is used for clini harsh purpo ses. Not Available [facility] [place] [address] [place], [address], 07/04/2024 18:31:39 06/27/20 24 06/28/2024 HEMOG LOBIN [...] absen ce of diabe adonis Not Available [facility] [address] [place], [address], 06/28/2024 10:58:20 06/27/20 24 06/28/2024 FSH AND [...] : 23.0- 116.6 mIU/m L Not Available [place], [address], 06/28/2024 11:44:56 06/27/20 24 06/28/2024 FSH AND [...] kofi: 0.7-5 .6 mIU/m L Not Available [facility] [address] [place], [address], 06/28/2024 11:44:56 06/27/2006/28/2024 PROLA CTIN prolactin 10.0 NG/mL Refer ence Range s Femal e aged 18-Ad ult Nonpr egnan t: 2.8-2 9.2 ng/mL Pregn ant: 9.7-2 08.5 ng/mL Post- menop ausal : 1.8-2 0.3 ng/mL Pregn richard, lacta tion, and the admin istra tion of oral contr acept kofi can incre ase prola ctin bear ntrat ions. Not Available [address], [address], 06/28/2024 11:44:58 06/27/20 24 06/28/2024 TSH W/ T4, FREE TSH 2.21 mIU/L 0.55 - 4.78 normal Refer ence Range Femal e aged 18-Ad ult: 0.55- 4.78 Pregn richard Refer ence Range s First Trime ster 0.26- 2.66 Secon d Trime ster 0.55- 2.73 Third Trime ster 0.43- 2.91 Not Available [employer], [address], 06/28/2024 11:50:12 06/27/20 24 06/28/2024 TSH W/ T4, FREE T4, free 1.14 NG/dL 0.89 - 1.76 normal Not Available [address], [address], 06/28/2024 11:50:12 08/06/20 24 08/06/2024 pregn richard test, urine HCG positi ve Not Available [facility] [address] [place], [address], 08/06/2024 09:17:01 08/07/20 24 08/06/2024 US, trans vagin al No observ ation record ed. bnotzke [facility] [address], [place], [address], 08/07/2024 12:27:15 Result Notes None recorded. Procedures Surgical History Date Name Laterality Status Provider Name and Address Organization Details Recorded Time 05/27/2023 Date of Last Pap Smear completed [facility] [employer] 06/26/2024 12:13:38 Imaging Results Imaging Date Name Status LastModified by Organization Details LastModified Time 08/06/2024 US, transvaginal completed bnotzke Anusha [address], [place], [address], 08/07/2024 12:27:15 Procedure Notes None recorded. Medical [...] Updated DateTime 4 172.72 cm 27.5 kg/m2 08227.2 2 g 97 [degF] 110 mm[Hg] 60 mm[Hg] [facility] [employer] 12:22:55 Date Recorded Body height Body mass index (BMI) Body weight Body temperature Systolic blood pressure Diastolic blood pressure Provider Name and Address Organization Details Last Updated DateTime 4 172.72 cm 27.9 kg/m2 27179.2 8 g 97.6 [degF] 118 mm[Hg] 74 mm[Hg] Janki Cruz [employer] 11:33:11 Social History Question Answer Notes LastModified by Organizat ion Details LastModified Time Tobacco Smoking Status Never Smoker Alena Kyle null, [employer] 06/26/2024 12:14:15 If You Are , What Was Your Level Of Alcohol Consumption Prior To ? None Information not available 06/26/2024 How Many Years Have You Consumed Alcohol? 10 Information not available 06/26/2024 Are You Blind Or Do You Have Difficulty Seeing? No Information not available 06/26/2024 Are You Deaf Or Do You Have Serious Difficulty Hearing? No Information not available 06/26/2024 What Type Of Diet Are You Following? REGULAR Information not available 06/26/2024 How Many Children Do You Have? 0 Information not available 06/26/2024 What Is Your Relationship Status? Information not available 06/26/2024 Are You Sexually Active? Yes Information not available 06/26/2024 Sex: Unknown Functional Status Question Answer Note LastModified by Organizat ion Details LastModified Time How many times per week do you consume alcohol? Less than 1 time per week Information not available 06/26/2024 Do you use any illicit or recreational drugs? No Information not available 06/26/2024 What is your level of alcohol consumption? Occasional Information not available 06/26/2024 Are you currently employed? Yes Information not available 06/26/2024 What is your exercise level? Occasional Information [...] SNOMED-CT Code Diagnosis ICD10 Code Diagnosis Note [id number] Elvia cordova CNM [facility] [address] [place] [address] 06/26/2024 11:57:51 07/04/2024 16:17:12 Infertility study 30145864 Z31.41 Desires reviewed tracking cycle and comparing with Ovulation kits Reproducti ve care management 711090075 Z31.81 Polycystic ovary syndrome 556364427 E28.2 Recurrent bacterial infection 108428976 A49.9 [id number] KAREN BURKS [facility] [address] [place] [address] 08/06/2024 11:23:13 08/06/2024 13:28:59 test positive 905810154 Z32.01 Pt presents today for a confirmati [...] vitamins daily---To xoplasmosi s precaution s reviewed-- -[facility] Guide; What to expect on your maternity journey -- -S/S of SAB reviewed and when to seek care RTC for 1st OB, Labs, and Physical. --BMI: 27.9 Health Concerns Section Related Observation LastModified by Organization Detai ls LastModified Time None Recorded Concern Status LastModified by Organization Details LastModified Time None Recorded Advance Directives Directive None Recorded Payers Insurance Date Sequence Insurance Name Policy Number Policy Galeano Covered Member ID Galeano Member ID Guarantor Name 08/05/2024 1 [place] [id number] Mitul Damian Allyssa [id number] Danna Elizabeth Allyssa Notes Date Note Type Note Provider Name and Address Organization Details Recorded Time 4 text/html InfertilityReported bypatient.Duration:tryin g to conceive for >1 year Context:menstrual cycles regular/monthly; menses every 28 days; documented ovulation: ; regular intercourse Danna is here for infertilitypatient state she has been trying for years to conceivepatient state she has been dx PCOS Elvia Romero, [facility] [address] [facility], [place], [address], [facility] [employer] 07/03/2024 10:43:04 4 text/html Danna is here for positive test. She states she still is taking the metformin and has been taking . She does have nausea in the morning and night sometimes. She has no questions for me. JOANNA PATEL, ELENA- [address] [facility], [place], [address], [employer] [facility] 08/06/2024 12:10:34 OBGyn Episode No OBEpisode recorded.
--- OUTSIDE RECORDS SUMMARY | 2025-03-11 10:34 | XMS_ITS | Clinical Summary ---
Author Organization [facility] [employer] Address [address] [place] [address] Care Team Providers Care Public Affairs Manager Name Role Phone Unavailable Primary Care Provider Unavailabl e Source Comments [facility] [employer],non-owned Affiliates and Associated Physician Practices is amultiple site organization consisting of ambulatory clinics and hospital sitesin [place] and [place]. This disclosure is being madepursuant to the Care Everywhere program and may not contain all information available regarding this patient. Last updated 18.[employer] [employer] Allergies No known active allergies Medications * [...] Sex Assigned at Female 11/11/2024 9:17 AM MARGARINE MAKER Legal Sex Female 11:18 AM CDT Gender Identity Female 11/11/2024 9:17 AM MARGARINE MAKER Sexual Orientation Not on file Occupation Industry Job Start Date Job End Date [employer] Not on file Not on file Not on file Last Filed Vital Signs Vital Sign Reading Time Taken Comments Blood Pressure 104/70 11/13/2024 8:57 AM MARGARINE MAKER Pulse 79 12/21/2017 10:01 AM MARGARINE MAKER Temperature 37.1 C (98.8 F) 12/21/2017 10:01 AM MARGARINE MAKER Respiratory Rate 16 12/21/2017 10:01 AM MARGARINE MAKER Oxygen Saturation 99% 12/21/2017 10:01 AM MARGARINE MAKER Inhaled Oxygen Concentration - - Weight 88 kg (194 lb) 11/13/2024 8:57 AM MARGARINE MAKER Height 163.8 cm (5' 4.5 ) 11/13/2024 8:57 AM MARGARINE MAKER Body Mass Index 32.79 11/13/2024 8:57 AM MARGARINE MAKER Plan of Treatment Health Maintenance Due Date [...]
--- OUTSIDE RECORDS SUMMARY | 2025-03-11 10:35 | XMS_ITS | Data Portability ---
Author Organization [facility] Address [address] [place] [address] Care Team Providers Care French Professor Name Role Phone LISE AMBRIZ Primary Care Provider Assessment Encounter Date Assessment Date Assessment LastModified by Organization Details LastModified Time 02/20/2025 02/20/2025 Patient is ___weeks . Discussed plan. Not available 02/20/2025 12:42:28 02/27/2025 02/27/2025 Patient is ___weeks . Discussed plan. Not available 02/27/2025 15:30:57 03/06/2025 03/06/2025 Patient is ___weeks . Discussed plan. Not available 03/06/2025 13:21:41 Plan of Treatment Reminders Order Date Submit Date Provider Last Modified By Organization Details Last Modified Time Details Appointments INDUCTION 2024 05:00A Nancy LOZANO MD Not available Not available Not available Lab None recorded. Referral None recorded. Procedures None recorded. Surgeries None recorded. Imaging US, obstetric , follow-up 2024 05 025 [email or web address] [place], [address], [address], [place], [address], 02/20/2025 21:40:50 Medication Orders None recorded. Patient TargetsNo targets recorded. Patient InstructionsNo instructions recorded. Reason for Referral None Reported. Results Created Date Observation Date Name Description Value Unit Range Abnormal Flag Note LastModifiedBy Organization Detail LastModifiedTime 02/21/2002/20/2025 CULTU RE: GROUP B STREP SCREE N, REFLE X SUSCE PTIBI LITY result report SEE RESULT S BELOW Test: Cultu re: Group B Strep , Refle x Susce ptibi lity ([facility]/ [facility] ) Speci men Sourc e: Vagin a/Rec mitchell Speci men Type: Vagin al/Re ctal Speci men Date: 025 1455 Resul t Date: 025 1404 Resul t Statu s: Final resul t Abnor mal: No Resul ting Lab: [facility] [address] [facility] [address] Tel: CULTU RE ----- ----- ----- --- No Group B strep isola bushra at 2 days (antonina ctive broth enhan cemen t) Not Available [facility] (Lab) [address], [place], [address], 02/23/2025 15:06:39 01/24/20 25 01/23/2025 US, obste tric, follo w-up No observ ation record ed. [email or web address] [address] [facility], [place], [address], 01/30/2025 10:21:18 01/24/20 25 01/23/2025 US, obste tric, follo w-up No observ ation record ed. [email or web address] [place] [address] [facility] [address], [place], [address], 01/23/2025 17:07:39 02/21/20 25 02/20/2025 US, obste tric, follo w-up No observ ation record ed. [email or web address] [place] [address], [place], [address], 02/20/2025 13:42:06 02/21/20 25 02/20/2025 US, obste tric, follo w-up No observ ation record ed. [email or web address] [address], [place], [address], 02/22/2025 23:54:16 Result Notes None recorded. Problems Name Problem SNOMED Code Status Onset Date Resolution Date Notes Provider Name and Address Organization Details Recorded Time SNOMED CT Concept Completed 201803/29/2021 Encntr for progressive care unit registered nurse exam (general ) (routine ) w/o abn findings ;Recorde d Elsewher e: No Locat ion: [facility] S ource: EHR Liner Installer darrion: N Practi ce ID: 0001 Phil lable Time: 10:15:[address] [facility] 10:34:[address] Concept Completed 201703/29/2021 Encntr for general adult medical exam w/o abnormal findings ;Recorde d Elsewher e: No Locat ion: [facility] S ource: EHR Liner Installer darrion: N Practi ce ID: 0001 Phil lable Time: 01:00:[address] [facility] 10:34:02 Educatio n Completed 201803/29/2021 Encounte r for other general counseli ng and advice on contrace ption;Re corded Elsewher e: No Locat ion: [facility] S ource: EHR Liner Installer darrion: N Practi ce ID: 0001 Phil lable Time: 10:15:[address] [facility] 10:33:52 Finding of pattern of menstrua l cycle 012963194 Completed 201703/29/2021 Irregula r interval s between menstrua l bleeding ;Recorde d Elsewher e: No Locat ion: [facility] S ource: EHR Liner Installer darrion: N Practi ce ID: 0001 Phil lable Time: 01:00:[address] [facility] 10:33:[address] Concept Completed 201503/29/2021 Encntr for routine child health exam w/o abnormal findings ;Recorde d Elsewher e: No Locat ion: Brandon saenz [facility] S ource: EHR Liner Installer darrion: N Paulyti ce ID: 0001 Phil lable Time: 10:15:00 AM Vandana Morris [facility] 1 10:34:03 Irregula r intermen strual bleeding 73402842 Completed 201303/29/2021 Irregula r bleeding between periods; Recorded Elsewher e: No Locat ion: Rickie dany [facility] S ource: EHR Liner Installer darrion: N Paulyti ce ID: 0001 Phil lable Time: 04:00:00 PM Vandana Morris [facility], [facility] 1 10:33:57 Irritabi lity and anger 716708053 Completed 201703/29/2021 Irritabi lity;Rec orded Elsewher e: No Locat ion: [facility] S ource: EHR Liner Installer darrion: N Paulyti ce ID: 0001 Phil lable Time: 01:00:00 PM Vandana Morris [facility] 10:33:58 Pregnanc y test negative 884890478 Completed 201503/29/2021 Encounte r for pregnanc y test, result negative ;Recorde d Elsewher e: No Locat ion: Rickie dany [facility] S ource: EHR Liner Installer darrion: N Paulyti ce ID: 0001 Phil lable Time: 10:15:00 AM Vandana Morris [facility] 1 10:34:00 Family planning surveill ance Completed 201403/29/2021 Contrace ptive surveill ance;Rec orded Elsewher e: No Locat ion: Rickie dany [facility] S ource: EHR Liner Installer darrion: N Paulyti ce ID: 0001 Phil lable Time: 11:00:00 AM Vandana Morris [facility], [facility] 1 10:33:53 Amenorrh ea 65386185 Completed 201303/29/2021 Amenorrh ea;Recor ded Elsewher e: No Locat ion: rBandon saenz [facility] S ource: EHR Liner Installer darrion: N Practi ce ID: 0001 Phil lable Time: 08:30:00 AM Vandana Morris [facility], [facility] 1 10:33:48 Acute vaginiti s 57021888 Completed 201903/29/2021 Vaginiti s;Record ed Elsewher e: No Locat ion: [facility] S ource: EHR Liner Installer darrion: N Practi ce ID: 0001 Phil lable Time: 08:30:00 AM Vandana Morris [facility], [facility] 1 10:33:47 Pregnanc y 65246884 Active 2023 Paola No null, [facility] 4 12:48:30 COVID-19 360959558 Active 2023 bASA daily, serial growth Yamilex Otto null, [facility] 4 10:08:36 COVID-19 573194305 Active 2023 bASA daily, serial growth Yamilex Otto [facility], [facility] 4 10:08:36 Short cervical length in pregnanc y 976667526 Active vaginal progeste florian , 2.3cM 21WK [facility] referral faxed 11/07 STL schedule d [facility] STL 11/13/24 Level II US and consult 0815 CL 2.38-2.9 2 average 2.4 Yamilex Otto null, [facility] 5 16:46:37 Short cervical length in pregnanc y 307730561 Active vaginal progeste florian , 2.3cM 21WK [facility] referral faxed 11/07 STL schedule d [facility] STL 11/13/24 Level II US and consult 0815 CL 2.38-2.9 2 average 2.4 Yamilex roe [facility] 5 16:46:37 Finding of uterine contract ions 084900652 Active Darian Lozano MD [address], [place], [address], [place] [facility] 5 13:02:51 Problem Notes None recorded. Procedures Surgical History Date Name Laterality Status Provider Name and Address Organization Details Recorded Time 04/22/20 Date of Last Pap Smear completed Gricelda Godwin [facility] 07/11/2023 19:34:21 dental consultation and report completed Lita Murillo [facility] 05/27/2020 12:14:29 Imaging Results Imaging Date Name Status LastModified by Organiz ation Details LastModified Time 01/23/2025 US, obstetric, follow-up completed [email or web address] [address], [place], [address], 01/30/2025 10:21:18 01/23/2025 US, obstetric, follow-up completed [email or web address] [place] [address], [place], [address], 01/23/2025 17:07:39 02/20/2025 US, obstetric, follow-up completed [email or web address] [place] [address], [place], [address], 02/20/2025 13:42:06 02/20/2025 US, obstetric, follow-up completed [email or web address] [address], [place], [address], 02/22/2025 23:54:16 Procedure Notes None recorded. Medical Equipment None [...] Prescrib ed Elsewher e: No Locat ion: [facility] odify By: jason [employer] unter DateTime : 11/14/19 08:30:00 AM Not Available Not Available Not Available Diflucan 150 mg tablet take 1 tablet by oral route once 11/14 completed Prescrib ed Elsewher e: No Locat ion: [facility] odify By: jason [employer] unter DateTime : 11/07/19 01:00:27 PM [...] Prescrib ed Elsewher e: No Locat ion: [facility] odify By: ubaldo nicolas DateTime : 12/29/19 18 09:52:26 AM Not Available Not Available Not Available Nortrel 1/35 (21) 1 mg-35 mcg tablet take 1 tablet by oral route every day for 28 days 03/30 completed Prescrib ed Elsewher e: No Locat ion: [facility] odify By: arnaldo patel DateTime : 03/03/20 16 11:35:18 AM Not Available Not Available Not Available minocycli ne 50 mg capsule take 2 capsule by oral route every 12 hours 11/14 completed Prescrib ed Elsewher e: No Locat ion: Brandon saenz [facility] odify By: tatiana pierceunter DateTime : 11/07/19 [...] ed Elsewher e: No Locat ion: [facility] odify By: tatiana Saenz ncounter DateTime : 07/03/20 10:15:00 AM Not Available [...] Prescrib ed Elsewher e: No Locat ion: [facility] M odify By: ebony Gutierrez er DateTime : 05/15/20 08:30:00 AM Not Available Not Available Not Available Vitals Date Recorded Body weight Systolic blood pressure Diastolic blood pressure Provider Name and Address Organization Details Last Updated DateTime 02/20/2025 65585.9519 2 g 123 mm[Hg] 84 mm[Hg] [facility] 02/20/2025 12:43:27 Date Recorded Body height Body mass index (BMI) Body weight Systolic blood pressure Diastolic blood pressure Provider Name and Address Organization Details Last Updated DateTime 02/27/2025 163.83 cm 37 kg/m2 15998.73 g 131 mm[Hg] 84 mm[Hg] [facility] 5 15:31:34 Date Recorded Body height Body mass index (BMI) Body weight Systolic blood pressure Diastolic blood pressure Provider Name and Address Organization Details Last Updated DateTime 03/06/2025 163.83 cm 37.2 kg/m2 07699.32 g 124 mm[Hg] 85 mm[Hg] [facility] 5 13:22:04 Social History Question Answer Notes LastModified by Organizat ion Details LastModified Time Tobacco Smoking Status Never [email or web address] 05/27/2020 12:14:16 Are You Blind Or Do You Have [...] Yes Information not available 03/29/2021 Do You Use Sunscreen Routinely? Yes Information not available 03/29/2021 Do You Have Difficulty Walking Or Climbing Stairs? No Information not available 04/22/2022 Sex: Unknown Functional Status Question Answer Note LastModified by Organizat ion Details LastModified Time Do you use any illicit or recreational drugs? No Information not available 03/29/2021 What is your level of alcohol consumption? Occasional Information not available 03/29/2021 Are you able to walk? YESWOREST Information not available 03/29/2021 Are you able to care for yourself? Yes Information n ot available 04/22/2022 Do you have difficulty dressing or bathing? No Information not available 04/22/2022 What is your exercise level? Moderate Information not available 03/29/2021 Mental Status Question Answer Note LastModified by Organization D etails LastModified Time Do you feel stressed (tense, restless, nervous, or anxious, or unable to sleep at night)? [id number] Information not available 03/29/2021 Family History Relationship Description Onset Age of this Age Resolved Age Notes LastModified by Organization Details LastModified Time Mother Hypertensive disorder [email or web address] Not available 2019 12:13:56 Mother Recurrent ovarian cancer 53 53 Not available 2021 12:34:09 Mother Uterine prolapse [email or web address] Not available 2023 11:52:18 Mother Acute lymphoid [...] SNOMED-CT Code Diagnosis ICD10 Code Diagnosis Note [id number] Delfina Ball , [facility] [address] [address] 05/27/2020 12:02:02 05/27/2020 13:48:51 test negative 207435976 Z32.02 Irregular periods 064879 07 N92.6 Patient is a 20yo white [...] and review of plan of care. Amenorrhea 04745728 N91. 2 No menses since 02/2020. Hx of irregular cycles q1-4mos. Lasting 4-5d moderate to french binder flow since menarche. UPT is neg Polycystic ovaries 30967 008 E28.2 Labs ordered to r/o PCOS/other anovulator y issues. [id number] Darian Lozano MD [place] [address] [address] 06/10/2020 12:34:42 06/10/2020 13:20:05 Oligomenorrhea 12114678 N91.5 [id number] ELENA Seym[facility] [address] [address] 07/08/2020 10:42:33 07/08/2020 13:00:47 Oligomenorrhea 16665295 N91.5 Hx of irregular menses TUVS shows [...] 200mg sent. F/U x 3mos Female hirsutism 3661902 9 L68.0 High Testostero ne levels. Trial [...] this medication & possible relation to PCOS. [id number] Delfina Ball [facility] [address],[place] [address] 07/27/2020 12:19:24 07/27/2020 12:53:43 Gynecologic examination 91540829 Z01.419 Take Calcium with Vitamin D 1200mg [...] partner x 2.5yrs now. [place]. [id number] Delfina Ball [facility] 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 Will let us know if interested in monthly BC instead. Cystic acne 12970631 L70 .0 R/P labs & if any changes need to be made will call her. F/U in 6mos for r/p labs CMP R/P labs done today. Will stay on current dosage unless otherwise indicated. RTO x 6mos f/u. Time spent in visit is a total of 15 mins with at least 50% of visit consisting of counseling and review of plan of care. [id number] Delfina Ball [facility] [address],[place] [address] 03/29/2021 11:03:09 03/29/2021 11:28:38 Cystic acne 27663856 L70.0 Doing well on this therapy. Controllin [...] this patient s visit, including available hand medical transcriptionist upon arrive, temperatur e check and being asked a series of screening questions. All staff wore face coverings during this encounter, as well as provided additional cleaning and sanitizing of all surfaces, including countertop s, pens, chairs, door handles, light switches, etc, prior to and following the patient s visit. [id number] Delfina Ball [facility] [address],[place] [address] 08/11/2021 15:56:34 08/11/2021 16:38:53 Urinary tract infectious disease 07077838 N39.0 Urinary symptoms 2290976 08 R39.9 [id number] Delfina Ball [facility] [address],[place] [address] 04/22/2022 12:10:23 04/28/2022 00:10:37 Gynecologic examination 71207440 Z01.419 Take Calcium with Vitamin D 1200mg [...] na Routine Labs naMammo na Cystic acne 40843149 L70 .0 Doing well on this therapy. Controllin g acne & has regulated her menstrual cycles. Very happy with this result.RF sent x 1yrLabs updated [id number] [facility] Ball [facility] [address] [address] 07/12/2023 11:58:26 07/12/2023 15:00:01 Gynecologic examination 31355967 Z01.419 Z11.3 Z11.8 Take Calcium with Vitamin [...] naDexa Screen naRoutine Labs pcp Cystic acne 62954083 L70 .0 Doing well on this therapy. Controllin g acne & has regulated her menstrual cycles. Very happy with this result.RF sent x 1yrLabs ordered Anxiety 46042156 F32.A Today Danna has expressed wanting assistance [...] in person.Dominic l sooner if any issues. [id number] Delfina Ball [facility] [address],[place] [address] 08/08/2023 10:33:27 08/08/2023 12:21:26 Anxiety 80737138 F32.A Patient is here today for a [...] counseling and review of plan of care. [id number] Delfina Ball [facility] [address],[place] [address] 10/11/2023 14:18:10 10/11/2023 15:08:19 Secondary amenorrhea 383351546 N91.1 Today we agreed to update lab [...] plan of care. Vitamin D deficiency 347 02315 E55.9 [id number] Delfina Ball [facility] [address],[place] [address] 01/24/2024 11:17:32 01/24/2024 15:46:42 Polycystic ovary syndrome 589609123 E28.2 Today we discussed trial of metformin [...] plan of care. Vitamin D deficiency 347 49231 E55.9 Hx of def Secondary dysmenorrhea 50013296 N94.5 [id number] Darian Lozano MD [place] [address] [place] [address] 01/25/2024 10:18:22 01/25/2024 11:01:31 Pain in pelvis 84915791 R10.2 [id number] Delfina Ball [facility] [address] [place] [address] 03/26/2024 11:30:31 03/26/2024 12:01:32 Polycystic ovary syndrome 004266244 E28.2 Using Metformin for Fertility purposes/H x [...] counseling and review of plan of care. [id number] Darian Lozano MD [place] [address] [place] [address] 07/24/2024 16:37:05 07/24/2024 17:32:40 Threatened miscarriage 88342484 O20.0 Z3A.01 [id number] Darian Lozano MD [place] [address] [place] [address] 08/22/2024 11:51:44 08/22/2024 12:18:51 [id number] Darian Lozano MD [place] [address] [place] [address] 08/22/2024 11:52:26 08/22/2024 14:31:32 Amenorrhea 79782732 N91.2 this patient is a 24-year-ol d [...] begin routine care at her next visit. [id number] Darian Lozano MD [place] [address],[place] [address] 09/05/2024 11:51:26 09/05/2024 12:38:04 screening 886888297 Z36.82 Z3A.12 [id number] Darian Lozano MD [place] [address],[place] [address] 09/05/2024 11:52:19 09/05/2024 15:23:37 Routine care 529604871 Z34.90 [id number] Darian Lozano MD [place] [address],[place] [address] 10/03/2024 11:27:05 10/03/2024 12:40:43 Routine care 662099258 Z34.90 [id number] Darian Lozano MD [place] [address],[place] [address] 10/31/2024 09:30:23 10/31/2024 10:51:33 screening for malformation 971482464 Z36.3 Z3A.20 [id number] Darian Lozano MD [place] [address],[place] [address] 10/31/2024 09:31:34 10/31/2024 11:44:53 Routine care 479385828 Z34.90 [id number] Darian Lozano MD [place] [address],[place] [address] 11/07/2024 11:57:35 11/07/2024 14:39:04 screening 502651305 Z36.2 O26.872 Z3A.21 [id number] MD Juan Watts [address],[place] [address] 11/12/2024 13:29:17 11/12/2024 14:14:22 Short cervical length in 684298985 O26.872 Z3A.22 [id number] MD Juan Watts [address],[place] [address] 11/28/2024 11:22:13 11/28/2024 12:13:16 Routine care 122789315 Z34.90 [id number] MD Juan Watts [address],[place] [address] 12/12/2024 13:54:32 12/12/2024 14:51:38 Short cervical length in 779965410 O26.872 Z3A.26 [id number] MD Juan Watts [address],[place] [address] 12/12/2024 13:55:48 12/12/2024 15:25:06 Routine care 108439336 Z34.90 [id number] MD Juan Watts [address],[place] [address] 12/26/2024 11:25:01 12/26/2024 12:33:16 Routine care 051854035 Z34.90 [id number] MD Juan Watts [address],[place] [address] 01/09/2025 12:27:31 01/09/2025 13:15:16 Routine care 774422876 Z34.90 [id number] MD Juan Watts [address],[place] [address] 01/23/2025 11:30:55 01/23/2025 12:16:55 History of SARS-CoV-2 8822979955 12639173 Z86.16 Z3A.32 [id number] MD Juan Watts [address],[place] [address] 01/23/2025 11:31:16 01/23/2025 13:10:57 Routine care 647786706 Z34.90 [id number] MD Juan Watts [address],[place] [address] 02/06/2025 10:09:04 02/06/2025 11:09:16 Third trimester 85836731 Z34.03 [id number] MD Juan Watts [address],[place] [address] 02/12/2025 16:29:58 02/12/2025 16:46:18 85919421 Z33.1 Pt here for BP check due [...] change in symptoms. Meg Mena ier, RN [id number] MD Juan Watts [address],[place] [address] 02/20/2025 11:29:07 02/20/2025 12:17:56 History of SARS-CoV-2 6287573438 08678046 Z86.16 Z3A.36 [id number] MD Juan Watts [address],[place] [address] 02/20/2025 11:29:30 02/20/2025 16:57:40 Third trimester 06939798 Z34.03 [id number] MD Juan Watts [address],[place] [address] 02/27/2025 15:10:32 02/27/2025 16:05:09 Third trimester 35602299 Z34.03 [id number] Darian Lozano MD [place] [address] [address] 03/06/2025 12:29:04 03/06/2025 13:47:52 Third trimester 13444938 Z34.03 Health Concerns Section Related Observation LastModified by Organization Detai ls LastModified Time None Recorded Concern Status LastModified by Organization Details LastModified Time None Recorded Advance Directives Directive None Recorded Payers Encounter Date Sequence Insurance Name Policy Number Policy Galeano Covered Member ID Galeano Member ID Guarantor Name 02/12/2025 1 [place] [id number] Mitul Damian Spviey [id number] Danna L Spivey 02/20/2025 1 [place] [id number] Mitul Damian Spivey [id number] Danna Wesley Spivey 02/20/2025 1 [place] [id number] Mitul Damian Spivey [id number] Danna Maryjane Spivey 02/27/2025 1 [place] [id number] Mitul Damian Spivey [id number] Danna Maryjane Spivey 03/06/2025 1 [place] [id number] Mitul Damian Spivey [id number] Danna Lizoa OBGyn Episode Ob Episode Information Episode Created Date Number of Fetuses Patient Bloodtype Patient rh Status Prepregnancy Weight lbs Domestic Partner Domestic Partner Phone Father Name Medical Collections Representative Status 09/05/20 24 1 A Positive Jeremia h OPEN Fetus Data First Name Last Name Admitted to NICU Weight (g) Sex Living Outcome Pediatric Complications Fetus ID Race Codes Race Delivery Type [id number] Problems Problem Notes [facility] recommendation per A my recommendations pelvic rest with work restrictions no lifting over 10lbs, no strenuous activity, taking breaks every 2hrs to sit, limit work shift to 8 hours, light duty if possible Problem Name Start Date End Date Resolution Snomed Code Not e Finding of uterine contractions 751012326 COVID-19 09/18/2024 408439228 Harsha womack y, serial growth Short cervical length in 430605154 vaginal progest erone , 2.3cM 21WK [facility] referral faxed 11/07 STLscheduled [facility] STL 11/13/24 Level II US and consult [...] Weight in lbs Pre/Post Dialysis Refused Weight 181.487274944530 BP Diastolic BP Location Tested BP Systolic [...] Type Weight in lbs Pre/Post Dialysis Refused 187.591074974716 BP Diastolic BP Location Tested BP Systolic [...] Type Weight in lbs Pre/Post Dialysis Refused 192.482797760230 BP Diastolic BP Location Tested BP Systolic [...] Type Weight in lbs Pre/Post Dialysis Refused 199.881235944020 BP Diastolic BP Location Tested BP Systolic [...] Type Weight in lbs Pre/Post Dialysis Refused 201.340914127692 BP Diastolic BP Location Tested BP Systolic [...] Type Weight in lbs Pre/Post Dialysis Refused 205.686949408422 BP Diastolic BP Location Tested BP Systolic [...] Type Weight in lbs Pre/Post Dialysis Refused 206.334086491763 BP Diastolic BP Location Tested BP Systolic [...] Weight in lbs Pre/Post Dialysis Refused Weight 210.124113580944 BP Diastolic BP Location Tested BP Systolic [...] Type Weight in lbs Pre/Post Dialysis Refused [id number] BP Diastolic BP Location Tested BP Systolic [...] Type Weight in lbs Pre/Post Dialysis Refused 216.792421274857 BP Diastolic BP Location Tested BP Systolic BP Type 84 L arm 123 sitting Fetus Heart Rate Present A 145 Fetus Movement A Yes Comments no complaints, no problems, routine care, no contractions, no vaginal bleeding, no loss of fluid, no cramping Flowsheet Date 02/27/2025 Shipley Score Blood Edema Fundus Height Fundus Units Glucose Ketones Leukocytes Nitrite Labor Signs Protein Cervic Dilation Cervic Effacement Cervic Station 2cm 60% -3 Type Weight in lbs Pre/Post Dialysis Refused Weight 219.336365629045 BP Diastolic BP Location Tested BP Systolic BP Type 84 L arm 131 sitting Fetus Heart Rate Present A 144 Present Fetus Movement A Yes Comments no complaints, no problems, routine care, no contractions, no vaginal bleeding, no loss of fluid, no cramping Flowsheet Date 03/06/2025 Shipley Score Blood Edema Fundus Height Fundus Units Glucose Ketones Leukocytes Nitrite Labor Signs Protein Cervic Dilation Cervic Effacement Cervic Station 3cm 80% Type Weight in lbs Pre/Post Dialysis Refused Weight 220.692729961056 BP Diastolic BP Location Tested BP Systolic BP Type 85 L arm 124 sitting Fetus Heart Rate Present A 145 Present Fetus Movement A Yes Comments Menstrual History Last Menstrual Date Menses Monthly [...]
--- OUTSIDE RECORDS SUMMARY | 2025-03-11 12:08 | XMS_ITS | Clinical Summary ---
Author Organization [facility] [employer] Address [address] [place] [address] Care Team Providers Care Highway Maintainer Name Role Phone Unavailable Primary Care Provider Unavailabl e Source Comments [facility] [employer],non-owned Affiliates and Associated Physician Practices is amultiple site organization consisting of ambulatory clinics and hospital sitesin [place], [place], [place] and [place]. This disclosure is being madepursuant to the Care Everywhere program and may not contain all information available regarding this patient. 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 on file Not on file Not on file Last Filed Vital Signs Vital Sign Reading Time Taken Comments Blood Pressure 104/70 11/13/2024 8:57 AM [employer] Pulse 79 12/21/2017 10:01 AM [employer] Temperature 37.1 C (98.8 F) 12/21/2017 10:01 AM [employer] Respiratory Rate 16 12/21/2017 10:01 AM [employer] Oxygen Saturation 99% 12/21/2017 10:01 AM [employer] Inhaled Oxygen Concentration - - Weight 88 kg (194 lb) 11/13/2024 8:57 AM [employer] Height 163.8 cm (5' 4.5 ) 11/13/2024 8:57 AM [employer] Body Mass Index 32.79 11/13/2024 8:57 AM [employer] Plan of Treatment Health Maintenance Due Date [...] 58 yrs (No Doses Required) Completed Insurance [facility] Address: [facility] [id number] [place] [address]
[2025-03-11 13:14] LABS: Basophils Percent Auto 0.3 % (0.2-1.2); Eosinophils Percent Auto 0.2 % (0-4.4); Hematocrit 40.2 % (37.0-47.0); Hemoglobin 13.8 g/dL (12.0-15.0); Immature Granulocyte Absolute 0.05 K/mm3 (0.00-0.031); Immature Granulocyte Percent A 0.4 % (0-0.5); Lymphocytes Absolute Auto 2.06 K/mm3 (0.9-3.2); Lymphocytes Percent Auto 16.7 % (18.3-44.2); Mean Corpuscular HGB Conc 34.3 g/dl (32-36); Mean Corpuscular Hemoglobin 30.3 pg (26-34); Mean Corpuscular Volume 88.2 fl (80-100); Mean Platelet Volume 10.2 fl (7.4-10.4); Monocytes Absolute Auto 0.8 K/mm3 (0.1-0.6); Monocytes Percent Auto 6.6 % (2.6-8.5); Neutrophils Absolute Auto 9.4 K/mm3 (1.3-6.7); Neutrophils Percent Auto 75.8 % (45.5-73.1); Platelet Count Result 309 k/mm3 (150-375); Red Blood Count 4.56 M/mm3 (4.2-5.4); Red Cell Distribution Width 13.1 % (11.5-14.5); White Blood Count 12.4 K/mm3 (4.5-10.0)
--- NOTE | 2025-03-11 13:17 | LDADM ---
This patient, Danna Spivey, was admitted to Labor/Delivery/Recovery 104 on 03/11/25 at 10:18. Plans for labor, pain management and were discussed with patient. Patient/family oriented to hospital policies and general routines including ID bracelet, bed and alarms, visiting hours, pain management, procedures, bathroom and other care routines, personal items, smoking policy, room service/diet and guest tray routines, security routines, and visiting hours. Patient/Family are encouraged to report perceived risks to care and to ask questions if they do not understand what they are told or what they should do. See [facility]BIX for further documentation.
[2025-03-11 14:07] LABS: Syphilis IgG/IgM Antibody Negative (Negative)
[2025-03-11 14:08] LABS: HIV 1/2 Ab P24 Ag Result Negative (Negative)
--- NOTE | 2025-03-11 17:37 | P.PNOB_ITS ---
OB - PN: Subj Subjective Date/time seen: 03/11/25 17:37 Interval history: erase, error OB - PN: Obj Data Labs 03/11/25 13:00 Labs: Laboratory Results - last 24 hr 03/11/25 13:00 WBC 12.4 H RBC 4.56 Hgb 13.8 Hct 40.2 MCV 88.2 MCH 30.3 MCHC 34.3 RDW 13.1 Plt Count 309 MPV 10.2 Immature Gran % (Auto) 0.4 Neut % (Auto) 75.8 H Lymph % (Auto) 16.7 L [place] % (Auto) 6.6 Eos % (Auto) 0.2 Baso % (Auto) 0.3 Lymph # (Auto) 2.06 [place] # (Auto) 0.8 H Eos # (Auto) 0.0 Baso # (Auto) 0.0 Abs Immat Gran (auto) 0.05 H Absolute Neuts (auto) 9.4 H Absolute Nucleated RBC 0.000 Nucleated RBC % 0.0 Syphilis IgG/IgM Ab Negative HIV 1&2 Ab/P24 Ag 4thGn Negative Blood Type A Positive Antibody Screen Negative OB - PN A/P Time Spent With Patient Time: Total time spent is greater than 50% in coordination of care (as documented) at patient's floor/unit and/or counseling patient:
--- NOTE | 2025-03-11 17:37 | WPDOBADMIT ---
Obstetrics - Admit Note Admission Note: record reviewed. No pertinent additions to the history and/or any subsequent changes in the physical findings that are not consistent with the expected course of the were found. Additions to the history and/or subsequent changes in the physical findings follow. Admit in labor -/-1 AROM moderate amount of clear, odorless fluid, anticipate vaginal delivery
[2025-03-11] MEDS: fentaNYL CITRATE INJ (*CRX) 100 MCG/2 ML VIAL 50 MCG IV PUSH ×2 (17:57→20:50)
[2025-03-11 18:45] LABS: OBXCEM ROM Plus Negative (Negative)
[2025-03-11] MEDS: LACTATED RINGERS 1,000 ML 125 ML IV CONT ×3 (21:00→23:06)
--- NOTE | 2025-03-11 21:10 | P.PNAN_ITS ---
Anes - Eval Pre Procedure Procedure: pain during labor Date/Time: 03/11/25 21:10 Surgeon: Blake Preop Diagnosis: pain during labor Pre Op Diagnosis: Contractions Patient Data Age: 25 Gender: F Height: 1.68 m Weight: 100 kg Last Vital Signs Temp 98.3 F 03/11/25 20:10 Pulse 91 03/11/25 18:14 BP 130/79 03/11/25 18:14 Pulse Ox 98 03/11/25 19:22 O2 Del Method Room Air 03/11/25 13:17 Allergies Allergy/AdvReac Type Severity Reaction Status Date / Time No Known Allergies Allergy Mild Verified 03/11/25 13:10 Home Medications ?Medication ?Instructions ?Recorded ?Confirmed ?Type aspirin 81 mg capsule 81 mg PO DAILY 12/10/24 03/11/25 History vit no.95-ferrous 1 tablet PO DAILY 12/10/24 03/11/25 History fumarate 28 mg-folic acid 800 mcg tablet () Laboratory Tests 03/11/25 03/11/25 12:20 13:00 WBC 12.4 H K/mm3 (4.5-10.0) RBC 4.56 M/mm3 (4.2-5.4) Hgb 13.8 g/dL (12.0-15.0) Hct 40.2 % (37.0-47.0) MCV 88.2 fl (80-100) MCH 30.3 pg (26-34) MCHC 34.3 g/dl (32-36) RDW 13.1 % (11.5-14.5) Plt Count 309 k/mm3 (150-375) MPV 10.2 fl (7.4-10.4) Immature Gran % (Auto) 0.4 % (0-0.5) Neut % (Auto) 75.8 H % (45.5-73.1) Lymph % (Auto) 16.7 L % (18.3-44.2) [place] % (Auto) 6.6 % (2.6-8.5) Eos % (Auto) 0.2 % (0-4.4) Baso % (Auto) 0.3 % (0.2-1.2) Lymph # (Auto) 2.06 K/mm3 (0.9-3.2) [place] # (Auto) 0.8 H K/mm3 (0.1-0.6) Eos # (Auto) 0.0 K/mm3 (0-0.3) Baso # (Auto) 0.0 K/mm3 (0.0-0.1) Abs Immat Gran (auto) 0.05 H K/mm3 (0.00-0.031) Absolute Neuts (auto) 9.4 H K/mm3 (1.3-6.7) Absolute Nucleated RBC 0.000 K/mm3 (0.0-0.012) Nucleated RBC % 0.0 % (0.0-0.2) Membranes Rupture Rom plus negative (Negative) Syphilis IgG/IgM Ab Negative (Negative) HIV 1&2 Ab/P24 Ag 4thGn Negative (Negative) Blood Type A Positive Antibody Screen Negative Patient hx anesthesia problems: none Family hx anesthesia problems: none Results Review: All pre-operative results and documents have been reviewed as part of the pre- operative evaluation. [facility] Past Medical History Medical History Positive home test Acute bronchitis Sore throat Nausea and vomiting Nausea BMI 27.0-27.9,adult BMI 26.0-26.9,adult Nasal congestion Tinnitus Elevated testosterone level in female Anxiety Nasal congestion with rhinorrhea (Unknown) Eustachian tube dysfunction BMI 28.0-28.9,adult Surgical History Surgical History History of ear surgery (~2004) Family History Family History Father Asthma Hypertension Mother Prolapsed uterus AML (acute myeloblastic leukemia) Diabetes mellitus Depression Anxiety Heart disease Sibling Anxiety Depression Social History Social History Smoking status: Never smoker Alcohol intake: current Alcohol use details: Drinks once per month socially Substance use: never Substance use type: does not use Do You Feel Safe in your Home?: Yes Lack of Transportation: No Lack of Food: Never True Current Housing: I Have Housing Concerned About Future Housing: No Difficulty Paying Gas/Electric Bills: No Difficulty Paying for Meds: No Currently Unemployed: No Education: Trade/Vocational Certificate Difficulty w/ Childcare or Family Care: No Spiritual care concerns: No Exam Day of Procedure 03/11/25 21:10
[2025-03-11] MEDS: PHENYLEPHRINE 1,000 MCG/10 ML SYRINGE 100 MCG IV PUSH (22:35)
[2025-03-11] MEDS: OXYTOCIN 30 UNITS/NS 500 ML 30 UNITS/500 ML BAG 125 UNITS IV CONT (23:06)
[2025-03-12] VITALS (24 sets, daily range): BP systolic 79–166; BP diastolic 29–142; PULSE 74–294; RESP 16–18; TEMP 36.6–37.3; O2SAT 96–98
--- NOTE | 2025-03-12 01:56 | PM.OBPRVD ---
OB - Vaginal Delivery Note Procedure Delivery date: 03/12/25 Delivery augmentation: Pitocin Delivery monitor: External FHT and External Uterine Route of delivery: Indication for instrumentation: maternal exhaustion Episiotomy description: None Laceration Description: Vaginal Delivery repair: vicryl Specimen: No Quantitative Blood Loss (ml): 400 Anesthesia type: Epidural Disposition: Floor Complications: No immediate complications Narrative: Vacuum delivery-quiwi., maternal exhaustion, +4 station, outlet forceps, ALBARO, normal estimated weight, 1 pull, 1 contraction, 3 pushes, less than 1 minute.
[2025-03-12] MEDS: OXYTOCIN 30 UNITS/NS 500 ML 30 UNITS/500 ML BAG 125 UNITS IV CONT (02:15)
[2025-03-12] MEDS: BENZOCAINE 20% AER SPR (*SP) 56 GM CAN 1 SPRAY TOPICAL (04:01)
[2025-03-12] MEDS: WITCH HAZEL 40 PADS 1 PAD TOPICAL (04:01)
--- NOTE | 2025-03-12 04:29 | OBPPTRN ---
Patient transferred to post room #290 via wheelchair. Support person present. Oriented to unit, room, information board, rooming in, admission packet and security measures. Patient verbalizes understanding.
[2025-03-12] MEDS: CALCIUM CARBONATE (TUMS) 500 MG (200 MG ELEMENTAL) (05:08)
[2025-03-12] MEDS: IBUPROFEN 600 MG TABLET PO ×2 (05:08→16:16)
[2025-03-12] MEDS: ACETAMINOPHEN 325 MG TABLET 650 MG PO ×2 (06:59→21:22)
[2025-03-12] MEDS: SIMETHICONE 80 MG TAB.CHEW PO (07:02)
--- NOTE | 2025-03-12 07:20 | PC.NURSE ---
0720: Patient is getting ready to breastfeed and requests assistance. She is holding baby skin to skin to wake him. We held him upright, talked to him, and attempted to latch him to the left breast. Mom was shown cross cradle hold and baby made minimal attempts to open his mouth or latch. When a gloved finger is placed in his mouth, he sucks once. Encouraged mom to hold baby skin to skin for another half hour and then we will attempt again. Mom agrees to this plan. RN updated. 0755: Patient still holding baby skin to skin. He has not given any feeding cues. We moved him to the bassinet, checked his diaper, and he woke and cried. We placed baby in football hold this time on the left breast. Mom is shown how to hold baby close and offer the nipple to elicit a gape response. He gave more effort this time and latched with a few suckles. He did this a few times and then mom was shown how to hand express some drops of colostrum for baby. We placed the drops in his mouth hoping to encourage him to latch. He was very sleepy again and would no longer suck on a gloved finger. Mom was encouraged to continue monitoring for feeding cues. Educated mom that baby had a lot happen at delivery and is still recovering. Anticipatory guidance given on normal behavior in the first 24 hours of life. Mom says that feeding at breast is very important to her and that she is nervous of caring for a . Supported patient to express her worries and encouraged her that she will become adept with practice. Baby was swaddled and placed in the bassinet so that mom can rest. She will call for assistance if baby is ready to feed sooner than 2 hours. RN updated.
[2025-03-12] MEDS: FAMOTIDINE 20 MG TABLET PO ×2 (09:20→21:22)
--- NOTE | 2025-03-12 10:05 | PC.NURSE ---
1005: Went to patient room because mom states baby is awake. We attempted to latch in football hold on the right breast. He is more awake at this attempt but still won't offer a wide gape or suck. Mom wants to wait another half hour and see if baby wakes and feeds. Encouraged skin to skin and calling out if baby exhibits feeding cues. RN updated. 1100: Returned to patient room to attempt feeding again. Baby still very sleepy with little to no effort at the breast. Mom agrees that we can check a blood sugar to ensure baby isn't lethargic due to hypoglycemia. Blood sugar WNL at 78. Baby did not cry with heel stick. Returned to mom and offered the option to initiate pumping or to wait a little while and attempt again. Mom would like to start pumping and requests a hospital pump. Patient is adamant about feeding directly at breast or supplementing with breast milk only. We reviewed that if there is a medical necessity for supplementation, it will come from the doctor as an order. Patient states that she will call her sister in law (who is a network systems consultant) for feeding help before giving any formula supplementation. Assured mom that it is not required at this time but that if we continue to be unable to get baby to feed, we may have to start a feeding plan. RN updated. Patient set up with a breast pump due to ineffective feeding. Mother was shown proper?sizing (21mm pinches so we switched to 24mm which feels better to her) and placement?of flanges, pump settings, and cleaning of pump parts. Recommended 15 minutes of pumping both breasts simultaneously. Patient is aware that pumping should not hurt. She is encouraged to use the highest comfortable suction setting, gradually increasing the level as she pumps. Patient provided with a basin for cleaning parts between uses. Patient's significant other was shown how to wash parts. Discussed use of expressed breast milk with drops of milk placed in baby?s mouth with a clean finger, syringe feeding, bottle feeding, or mixing with a small volume of formula and feeding with a bottle. Primary RN updated. ?
--- NOTE | 2025-03-12 17:30 | PC.NURSE ---
Patient called out for assistance with feeding. Baby is very sleepy and will not give effort to latch or open his mouth. Attempts to wake him are unsuccessful. Mom attempted for 10 minutes at 1430 and gave some drops of colostrum with assistance from her [id number] who is experienced with . Patient did not use the pump again after the attempt. It has been 6 hours since the last blood sugar check and the director of recreation therapy agreed that we should check another since he has not fed effectively. Blood sugar 61. Mom used the hand pump to see if she could get some colostrum for baby but states that it hurt too bad and she has to take a break. Dr. Atkinson in room to discuss plan of care with parents. Formula supplementation is not a medical necessity at this time but parents are encouraged to consider the possibility that baby may need to supplement if he doesn't have an effective feeding this evening. His daily weight at midnight will also be a considered as we continue to work to latch baby and get a good effective feeding. RN updated. Order entered for blood sugar check in 6 hours if baby has not had an effective feeding.
[2025-03-13 04:30] LABS: Hematocrit 30.7 % (37.0-47.0); Hemoglobin 9.8 g/dL (12.0-15.0)
--- NOTE | 2025-03-13 08:27 | P.DS_ITS ---
DS: Admitting Diagnosis Discharge Date 03/13/25 Admitting Diagnosis term OB - DS: Summary OB Procedures : None OB Procedures Intrapartum: Spontaneous Vag Delivery OB Procedures: : None Peripartum Data Laceration Description: Vaginal Episiotomy description: None Time Spent with Patient Time attestation: Total time spent providing and/or coordinating discharge services: DS: Data Data Completed and Pending Labs on day of discharge: Labs from last 24 hours 03/13/25 03:47 Hgb 9.8 L D Hct 30.7 L Discharge Plan Discharge Discharging Clinician: Darian Lozano Patient Disposition: Home Activity: pelvic rest Diet: regular Patient Instructions: Antibiotic Form Patient Language: Bulgarian Stand Alone Forms: General Discharge Information Follow-up/Referrals: Darian Lozano MD [Physician] - Discharge Medications: Continued PNV cmb#95-ferrous fumarate-FA [] 28 mg iron- 800 mcg tablet 1 tablet PO DAILY Discontinued aspirin 81 mg capsule 81 mg PO DAILY Date of admission: 03/11/25 10:18 Primary Care Provider: Micki Clemens Admitting Provider: Darian Lozano Attending physician on admission: Darian Lozano Condition: Stable
--- NOTE | 2025-03-13 08:27 | P.PNOB_ITS ---
OB - PN: Subj Subjective Date/time seen: 03/13/25 08:27 Interval history: erase, error Patient comments: no complaints, pain well controlled, incisional pain, tolerating diet and flatus present OB - PN: Obj Data Labs 03/13/25 03:47 Labs: Laboratory Results - last 24 hr 03/13/25 03:47 Hgb 9.8 L D Hct 30.7 L OB - PN A/P Plan day: 1 Plan: routine care Comments: No problems, routine care Time Spent With Patient Time: Total time spent is greater than 50% in coordination of care (as documented) at patient's floor/unit and/or counseling patient: Exam 2 Const: General: comfortable, no acute distress and alert Resp: Effort & Inspection: normal respiratory effort Auscultation: no crackles, no rales and no rhonchi Cardio: Rate: regular rate Heart sounds: no click, no murmurs and no rubs GI: Inspection: non-distended GI Palp: No Tenderness to palpation present (GI) Auscultation: normal bowel sounds Other: Incision - CDI Extrem: General: normal to inspection, no pedal edema and no calf tenderness
--- NOTE | 2025-03-13 08:50 | PC.NURSE ---
Reviewed standard discharge information with patient including monitoring for required output, transition of stools, feeding 8-12 times every 24 hours, milk production, and follow up at [facility] and with construction driver in the first week of life. Mom states baby woke up and breastfed well last night. She has been taking pictures of her latch and sending to her [id number] who has experience. Reminded her that a wide angle at the corner of baby's mouth can be a good indicator of effective latch. She states that she is comfortable going home exclusively and that she doesn't have any other questions or concerns. Offered outpatient resources with Services at [facility]. Mom states that she has 2 breast pumps at home. Educated on pumping if baby does not feed effectively at any feedign session. Patient has the Mom/Baby Guide for further education and reference for common concerns, phone numbers, and guidance on when to call the doctor. A feeding plan was added to the infant?s discharge plan. Patient states that she has no further questions or concerns regarding .?
[2025-03-13 09:00] VITALS: BP 107/62; PULSE 89; RESP 16; TEMP 36.4; O2SAT 97
[2025-03-13] MEDS: MULTIVIT/MIN/PREN/FOL AC/IRON TABLET 1 TAB PO (09:12)
[2025-03-13] MEDS: DOCUSATE SODIUM 100 MG CAPSULE PO (09:12)
[2025-03-13] MEDS: POLYSACCHARIDE IRON COMPLEX 150 MG CAPSULE PO (09:12)
[2025-03-13] MEDS: FAMOTIDINE 20 MG TABLET PO (09:13)
[2025-03-13] MEDS: IBUPROFEN 600 MG TABLET PO (09:13)
--- NOTE | 2025-03-13 10:26 | WPDANESPN ---
Anes - Prog Note Post-Op Date/Time: 03/13/25 10:26 Cardiovascular status: normal Respiratory status: normal Airway patency: baseline Mental status: baseline Post-Op hydration status: normal Vital Signs: Last Vital Signs Temp 36.6 C 03/12/25 19:56 Pulse 89 03/12/25 19:56 Resp 18 03/12/25 19:56 BP 106/55 L 03/12/25 19:56 Pulse Ox 97 03/12/25 19:56 O2 Del Method Room Air 03/12/25 19:56 Pain Score (VAS): 1 Laboratory Tests 03/13/25 03:47 03/13/25 03:47 Hgb 9.8 L D Hct 30.7 L Post-procedural complaints: none Patient Feedback: Patient satisfied with anesthetic care.
[2025-03-13] MEDS: TETANUS,DIPHTHERIA,AC PERTUSSIS ADULT (0.5 ML) BOOSTRIX IM (11:00)
[2025-03-14 09:26] VITALS: BP 116/89; PULSE 91; RESP 18; TEMP 36.6
== END 2025-03-13 11:30 | disposition home or self-care (01) | DRG 807 ==
LOC: ANHLDR 12:06 → ANHOB2 03-12 04:29
PROVIDERS: Admitting Provider Obstetrics & Gynecology; PCP Nurse Practitioner Family; Visit Provider Obstetrics & Gynecology
DX: O69.81X0 Labor and delivery complicated by cord around neck, without compression, not applicable or unspecified (principal); Z37.0 Single live birth; O70.1 Second degree perineal laceration during delivery; Z3A.39 39 weeks gestation of pregnancy
CPT/HCPCS: 36415; 84112; 85014; 85018; 85025; 86593; 86703; 86850; 86900; 86901; 90715; A9270; G0432; J2371; J2590; J2795; J3010; J7120